=== PATIENT | male | born 1960 | race Caucasian/White ===

== ENCOUNTER → 2020-10-08 11:00 | Outpatient (BNVA) | payer OTHER, SELFPAY | PROVIDERS: Visit Provider Urology | DX: C67.9 Malignant neoplasm of bladder, unspecified (principal) | CPT/HCPCS: 81002 ==

== ENCOUNTER 2020-10-08 11:40 | Outpatient (REF) | payer OTHER, SELFPAY ==
[2020-10-11 11:38] LABS: Urine Cytology See Pathology rpt
== END 2020-10-08 11:41 | disposition home or self-care (01) ==
LOC: HO.LNP 11:40
PROVIDERS: Visit Provider Urology
DX: D49.4 Neoplasm of unspecified behavior of bladder (principal)
CPT/HCPCS: 88112

== ENCOUNTER 2021-01-12 07:45 | Outpatient (REF) | payer OTHER, SELFPAY ==
[2021-01-12 11:27] LABS: MANUAL DIFF FLAG NO
[2021-01-12 11:39] LABS: Estimated Average Glucose 126 mg/dL
[2021-01-12 11:59] LABS: Creatinine Urine 226.65 mg/dL; Microalbum/Creatinine Ratio Ur 7.9 ug/mg cr
[2021-01-12 12:01] LABS: Basophils Percent Auto 0.5 % (0-2); Eosinophils Absolute Auto 0.1 X10*3/uL (0.0-0.4); Eosinophils Percent Auto 1.8 % (0-4); Hematocrit 45.8 % (42-52); Hemoglobin 14.7 g/dl (14.0-18.0); Imm Gran Abs Auto 0.02 X10*3/uL (0.00-0.03); Imm Gran Pct Auto 0.3 % (0.0-0.4); Lymphocytes Absolute Auto 2.2 X10*3/uL (1.2-4.9); Lymphocytes Percent Auto 36.7 % (20-40); Mean Corpuscular HGB Conc 32.1 g/dl (31.0-36.0); Mean Corpuscular Hemoglobin 30.7 pg (27.0-33.0); Mean Corpuscular Volume 95.6 fL (80-98); Mean Platelet Volume 10.9 fL (9.4-12.4); Monocytes Absolute Auto 0.7 X10*3/uL (0.1-1.2); Monocytes Percent Auto 10.8 % (2-11); Neutrophils Percent Auto 49.9 % (45-73); Platelet Count 211 X10*3/uL (160-400); Red Blood Count 4.79 X10*6/uL (4.60-5.80); Red Cell Distribution Width 13.6 % (11.0-16.0); White Blood Count 6.1 X10*3/uL (4.8-10.8)
[2021-01-12 12:15] LABS: Alanine Aminotransferase 20 U/L (0-40); Albumin Level 4.4 g/dL (3.5-5.0); Alkaline Phosphatase 45 U/L (39-117); Anion Gap 14 (12-20); Aspartate Amino Transferase 24 U/L (5-37); Bilirubin Total 0.4 mg/dL (0.0-1.0); Blood Urea Nitrogen 16 mg/dL (9-16); Calcium 8.9 mg/dL (8.4-10.2); Carbon Dioxide 26 mmol/L (22-29); Chloride 106 mmol/L (96-108); Cholesterol 131 mg/dL; Estimated Glomerular Filt Rate > 60; Glucose Fasting 130 mg/dL (60-99); HDL Cholesterol 26 mg/dL; Potassium 4.8 mmol/L (3.3-5.1); Sodium 141 mmol/L (135-145); Total Protein 6.6 g/dL (6.5-8.0); Triglycerides 434 mg/dL
== END 2021-01-12 07:46 | disposition home or self-care (01) ==
LOC: HO.HMGCLDS 07:45
PROVIDERS: PCP Internal Medicine; Visit Provider Internal Medicine
DX: E11.9 Type 2 diabetes mellitus without complications (principal); E78.00 Pure hypercholesterolemia, unspecified; I10 Essential (primary) hypertension; E66.09 Other obesity due to excess calories
CPT/HCPCS: 36415; 80053; 80061; 82043; 83036; 85025

== ENCOUNTER 2021-04-29 07:39 | Outpatient (REF) | payer OTHER, SELFPAY ==
[2021-04-29 11:59] LABS: Estimated Average Glucose 131 mg/dL; Hemoglobin A1c % 6.2 %
[2021-04-29 12:00] LABS: Alanine Aminotransferase 26 U/L (0-40); Albumin Level 4.6 g/dL (3.5-5.0); Alkaline Phosphatase 45 U/L (39-117); Anion Gap 14 (12-20); Aspartate Amino Transferase 27 U/L (5-37); Bilirubin Total 0.5 mg/dL (0.0-1.0); Blood Urea Nitrogen 17 mg/dL (9-16); Calcium 9.1 mg/dL (8.4-10.2); Carbon Dioxide 23 mmol/L (22-29); Chloride 107 mmol/L (96-108); Cholesterol 103 mg/dL; Estimated Glomerular Filt Rate > 60; Glucose Fasting 125 mg/dL (60-99); HDL Cholesterol 24 mg/dL; LDL Cholesterol Calculated 45 mg/dl; Potassium 4.5 mmol/L (3.3-5.1); Sodium 139 mmol/L (135-145); Total Protein 6.7 g/dL (6.5-8.0); Triglycerides 174 mg/dL
== END 2021-04-29 07:40 | disposition home or self-care (01) ==
LOC: HO.HMGCLDS 07:39
PROVIDERS: PCP Internal Medicine; Visit Provider Internal Medicine
DX: E11.9 Type 2 diabetes mellitus without complications (principal); I10 Essential (primary) hypertension; E78.00 Pure hypercholesterolemia, unspecified; E66.09 Other obesity due to excess calories
CPT/HCPCS: 36415; 80053; 80061; 83036

== ENCOUNTER 2021-05-18 09:48 | Outpatient (REF) | payer OTHER, SELFPAY ==
[2021-05-18 17:24] LABS: Urine Cytology See Pathology rpt
== END 2021-05-18 09:49 | disposition home or self-care (01) ==
LOC: HO.LAB 09:48
PROVIDERS: PCP Internal Medicine; Visit Provider Urology
DX: C67.9 Malignant neoplasm of bladder, unspecified (principal)
CPT/HCPCS: 88112

== ENCOUNTER 2021-11-11 09:11 | Outpatient (REF) | payer OTHER, SELFPAY ==
[2021-11-11 11:10] LABS: MANUAL DIFF FLAG NO
[2021-11-11 11:20] LABS: Basophils Percent Auto 0.4 % (0-2); Eosinophils Percent Auto 0.8 % (0-4); Hematocrit 44.3 % (42.0-52.0); Hemoglobin 14.8 g/dl (14.0-18.0); Imm Gran Abs Auto 0.02 X10*3/uL (0.00-0.03); Imm Gran Pct Auto 0.4 % (0.0-0.4); Lymphocytes Absolute Auto 2.1 X10*3/uL (1.2-4.9); Lymphocytes Percent Auto 40.9 % (20-40); Mean Corpuscular HGB Conc 33.4 g/dl (31.0-36.0); Mean Corpuscular Hemoglobin 31.5 pg (27.0-33.0); Mean Corpuscular Volume 94.3 fL (80.0-98.0); Mean Platelet Volume 11.5 fL (9.4-12.4); Monocytes Absolute Auto 0.6 X10*3/uL (0.1-1.2); Monocytes Percent Auto 11.4 % (2-11); Neutrophils Absolute Auto 2.4 x10*3/uL (2.0-8.3); Neutrophils Percent Auto 46.1 % (45-73); Platelet Count 181 X10*3/uL (160-400); Red Cell Distribution Width 13.3 % (11.0-16.0); White Blood Count 5.1 X10*3/uL (4.8-10.8)
[2021-11-11 11:22] LABS: Appearance Urine CLEAR; Color Urine YELLOW; Glucose Urine UA NEG (NEG); Leukocyte Esterase Urine NEG (NEG); Nitrite Urine NEG (NEG); Urine Blood NEG (NEG); Urine Ketones NEG (NEG); Urine Protein NEG (NEG-TRACE)
[2021-11-11 11:33] LABS: Estimated Average Glucose 148 mg/dL; Hemoglobin A1c % 6.8 %
[2021-11-11 11:41] LABS: Alanine Aminotransferase 34 U/L (0-40); Albumin Level 4.5 g/dL (3.5-5.0); Alkaline Phosphatase 42 U/L (39-117); Anion Gap 12 (12-20); Aspartate Amino Transferase 34 U/L (5-37); Bilirubin Total 0.5 mg/dL (0.0-1.0); Blood Urea Nitrogen 11 mg/dL (9-16); Calcium 9.6 mg/dL (8.4-10.2); Carbon Dioxide 25 mmol/L (22-29); Chloride 108 mmol/L (96-108); Cholesterol 114 mg/dL; Estimated Glomerular Filt Rate > 60; Glucose Fasting 136 mg/dL (60-99); HDL Cholesterol 31 mg/dL; LDL Cholesterol Calculated 63 mg/dl; Sodium 141 mmol/L (135-145); Total Protein 6.6 g/dL (6.5-8.0); Triglycerides 103 mg/dL
[2021-11-11 11:59] LABS: Creatinine Urine 36.93 mg/dL; Microalbum/Creatinine Ratio Ur 13.5 ug/mg cr; RBC Urine 0 /HPF (0); WBC Urine 0-2 /HPF (0-4)
[2021-11-11 12:07] LABS: Thyroid Stimulating Hormone 1.23 uIU/mL (0.32-4.0); Vitamin D 25-OH Total 35.6 ng/mL (>30)
== END 2021-11-11 09:12 | disposition home or self-care (01) ==
LOC: HO.HMGCLDS 09:11
PROVIDERS: PCP Internal Medicine; Visit Provider Internal Medicine
DX: E11.9 Type 2 diabetes mellitus without complications (principal); I10 Essential (primary) hypertension; N20.0 Calculus of kidney; E78.00 Pure hypercholesterolemia, unspecified; E55.9 Vitamin D deficiency, unspecified
CPT/HCPCS: 36415; 80053; 80061; 81001; 82043; 82306; 83036; 84443; 85025

== ENCOUNTER 2021-11-15 08:50 | Outpatient (REF) | payer OTHER, SELFPAY ==
[2021-11-15 16:47] LABS: Urine Cytology See Pathology rpt
== END 2021-11-15 08:51 | disposition home or self-care (01) ==
LOC: HO.LAB 08:50
PROVIDERS: PCP Internal Medicine; Visit Provider Urology
DX: C67.9 Malignant neoplasm of bladder, unspecified (principal); D04.9 Carcinoma in situ of skin, unspecified; F17.210 Nicotine dependence, cigarettes, uncomplicated; Z88.0 Allergy status to penicillin; Z88.1 Allergy status to other antibiotic agents; Z91.02 Food additives allergy status; Z77.098 Contact with and (suspected) exposure to other hazardous, chiefly nonmedicinal, chemicals
CPT/HCPCS: 52000; 88112

== ENCOUNTER 2022-06-09 07:22 | Outpatient (REF) | payer OTHER, SELFPAY ==
[2022-06-09 11:39] LABS: MANUAL DIFF FLAG NO
[2022-06-09 11:45] LABS: Basophils Percent Auto 0.6 % (0-2); Eosinophils Percent Auto 0.5 % (0-4); Hematocrit 45.5 % (42.0-52.0); Hemoglobin 15.1 g/dl (14.0-18.0); Imm Gran Abs Auto 0.07 X10*3/uL (0.00-0.03); Imm Gran Pct Auto 1.1 % (0.0-0.4); Lymphocytes Absolute Auto 2.2 X10*3/uL (1.2-4.9); Lymphocytes Percent Auto 33.4 % (20-40); Mean Corpuscular HGB Conc 33.2 g/dl (31.0-36.0); Mean Corpuscular Hemoglobin 31.5 pg (27.0-33.0); Mean Platelet Volume 11.8 fL (9.4-12.4); Monocytes Absolute Auto 0.7 X10*3/uL (0.1-1.2); Monocytes Percent Auto 11.4 % (2-11); Neutrophils Absolute Auto 3.5 x10*3/uL (2.0-8.3); Platelet Count 176 X10*3/uL (160-400); Red Blood Count 4.79 X10*6/uL (4.60-5.80); Red Cell Distribution Width 12.9 % (11.0-16.0); White Blood Count 6.5 X10*3/uL (4.8-10.8)
[2022-06-09 12:47] LABS: Estimated Average Glucose 174 mg/dL; Hemoglobin A1c % 7.7 %
[2022-06-09 13:05] LABS: Alanine Aminotransferase 32 U/L (0-40); Albumin Level 4.7 g/dL (3.5-5.0); Alkaline Phosphatase 43 U/L (39-117); Anion Gap 13 (12-20); Aspartate Amino Transferase 33 U/L (5-37); Bilirubin Total 0.6 mg/dL (0.0-1.0); Blood Urea Nitrogen 14 mg/dL (9-16); Calcium 9.9 mg/dL (8.4-10.2); Carbon Dioxide 27 mmol/L (22-29); Chloride 102 mmol/L (96-108); Cholesterol 109 mg/dL; Estimated Glomerular Filt Rate > 60; Glucose Fasting 175 mg/dL (60-99); HDL Cholesterol 27 mg/dL; LDL Cholesterol Calculated 55 mg/dl; Potassium 4.8 mmol/L (3.3-5.1); Sodium 137 mmol/L (135-145); Thyroid Stimulating Hormone 1.16 uIU/mL (0.32-4.0); Total Protein 6.7 g/dL (6.5-8.0); Triglycerides 137 mg/dL
[2022-06-09 13:35] LABS: Vitamin D 25-OH Total 34.8 ng/mL (>30)
[2022-06-09 14:08] LABS: Creatinine Urine 99.33 mg/dL
[2022-06-09 14:22] LABS: PSA,Total (Free>4and<10) 0.21 ng/mL (0.00-4.00)
== END 2022-06-09 07:23 | disposition home or self-care (01) ==
LOC: HO.HMGCLDS 07:22
PROVIDERS: PCP Internal Medicine; Visit Provider Internal Medicine
DX: Z12.5 Encounter for screening for malignant neoplasm of prostate (principal); E11.9 Type 2 diabetes mellitus without complications; E78.00 Pure hypercholesterolemia, unspecified; E55.9 Vitamin D deficiency, unspecified; F41.9 Anxiety disorder, unspecified; I10 Essential (primary) hypertension
CPT/HCPCS: 36415; 80053; 80061; 82043; 82306; 83036; 84153; 84443; 85025

== ENCOUNTER 2022-06-30 11:00 | Outpatient (REF) | payer OTHER, SELFPAY ==
[2022-06-30 16:38] LABS: Urine Cytology See Pathology rpt
== END 2022-06-30 11:01 | disposition home or self-care (01) ==
LOC: HO.LAB 11:00
PROVIDERS: PCP Internal Medicine; Visit Provider Urology
DX: C67.9 Malignant neoplasm of bladder, unspecified (principal)
CPT/HCPCS: 52000; 88112

== ENCOUNTER 2022-07-15 10:38 | Outpatient (REF) | payer OTHER, SELFPAY ==
[2022-07-15 14:02] LABS: MANUAL DIFF FLAG NO
[2022-07-15 14:05] LABS: Basophils Percent Auto 0.7 % (0-2); Eosinophils Percent Auto 0.5 % (0-4); Hematocrit 45.9 % (42.0-52.0); Imm Gran Abs Auto 0.11 X10*3/uL (0.00-0.03); Imm Gran Pct Auto 1.8 % (0.0-0.4); Lymphocytes Absolute Auto 2.4 X10*3/uL (1.2-4.9); Lymphocytes Percent Auto 38.3 % (20-40); Mean Corpuscular HGB Conc 32.7 g/dl (31.0-36.0); Mean Corpuscular Hemoglobin 31.4 pg (27.0-33.0); Mean Platelet Volume 11.5 fL (9.4-12.4); Monocytes Absolute Auto 0.6 X10*3/uL (0.1-1.2); Monocytes Percent Auto 9.3 % (2-11); Neutrophils Percent Auto 49.4 % (45-73); Platelet Count 182 X10*3/uL (160-400); Red Blood Count 4.78 X10*6/uL (4.60-5.80); Red Cell Distribution Width 12.8 % (11.0-16.0); White Blood Count 6.1 X10*3/uL (4.8-10.8)
[2022-07-15 14:07] LABS: Appearance Urine Turbid; Color Urine Yellow; Glucose Urine UA Negative (Negative); Leukocyte Esterase Urine Negative (Negative); Nitrite Urine Negative (Negative); PH 5.5 (5.0-9.0); Specific Gravity - Urine 1.025 (1.005-1.025); Urine Blood Negative (Negative); Urine Ketones Negative (Negative); Urine Protein Trace mg/dL (Neg-Trace)
[2022-07-15 14:10] LABS: Bacteria Urine None Seen (None Seen); Hyaline Casts Urine 0-2 /LPF (0-2); RBC Urine 0-2 /HPF (0-2); Squamous Epithelial Cell Urine 0-2 /HPF (0-2); WBC Urine 0-5 /HPF (0-5)
[2022-07-15 14:17] LABS: Alanine Aminotransferase 35 U/L (0-40); Albumin Level 4.8 g/dL (3.5-5.0); Alkaline Phosphatase 46 U/L (39-117); Anion Gap 15 (12-20); Aspartate Amino Transferase 35 U/L (5-37); Bilirubin Total 0.7 mg/dL (0.0-1.0); Blood Urea Nitrogen 15 mg/dL (9-16); Calcium 9.7 mg/dL (8.4-10.2); Carbon Dioxide 25 mmol/L (22-29); Chloride 105 mmol/L (96-108); Estimated Glomerular Filt Rate > 60; Glucose Random 156 mg/dL (60-115); Potassium 4.6 mmol/L (3.3-5.1); Sodium 140 mmol/L (135-145); Total Protein 6.8 g/dL (6.5-8.0)
== END 2022-07-15 10:39 | disposition home or self-care (01) ==
LOC: HO.HMGCLDS 10:38
PROVIDERS: Absent Provider Urology; PCP Internal Medicine; Visit Provider Internal Medicine
DX: C67.9 Malignant neoplasm of bladder, unspecified (principal); I10 Essential (primary) hypertension; E11.9 Type 2 diabetes mellitus without complications
CPT/HCPCS: 36415; 80053; 81001; 85025; 87086

== ENCOUNTER → 2022-10-24 11:21 | Outpatient (BNVA) | payer OTHER, SELFPAY | PROVIDERS: PCP Internal Medicine; Visit Provider Surgery | DX: Z13.89 Encounter for screening for other disorder (principal) ==

== ENCOUNTER 2023-05-01 10:57 | Outpatient (REF) | payer OTHER, SELFPAY ==
[2023-05-01 13:29] LABS: Appearance Urine Clear; Color Urine Yellow; Glucose Urine UA 100 mg/dL (Negative); Leukocyte Esterase Urine Negative (Negative); Nitrite Urine Negative (Negative); PH 5.5 (5.0-9.0); Urine Blood Negative (Negative); Urine Ketones Negative (Negative); Urine Protein Negative (Neg-Trace)
[2023-05-01 13:34] LABS: MANUAL DIFF FLAG NO
[2023-05-01 13:38] LABS: Bacteria Urine None Seen (None Seen); Hyaline Casts Urine 0-2 /LPF (0-2); RBC Urine 0-2 /HPF (0-2); Squamous Epithelial Cell Urine 0-2 /HPF (0-2); WBC Urine 0-5 /HPF (0-5)
[2023-05-01 13:55] LABS: Basophils Percent Auto 0.6 % (0-2); Eosinophils Percent Auto 0.4 % (0-4); Hematocrit 44.3 % (42.0-52.0); Hemoglobin 14.7 g/dl (14.0-18.0); Imm Gran Abs Auto 0.08 X10*3/uL (0.00-0.03); Imm Gran Pct Auto 1.5 % (0.0-0.4); Lymphocytes Absolute Auto 1.9 X10*3/uL (1.2-4.9); Lymphocytes Percent Auto 34.9 % (20-40); Mean Corpuscular HGB Conc 33.2 g/dl (31.0-36.0); Mean Corpuscular Volume 93.5 fL (80.0-98.0); Monocytes Absolute Auto 0.5 X10*3/uL (0.1-1.2); Monocytes Percent Auto 8.6 % (2-11); Platelet Count 170 X10*3/uL (160-400); Red Blood Count 4.74 X10*6/uL (4.60-5.80); White Blood Count 5.5 X10*3/uL (4.8-10.8)
[2023-05-01 14:28] LABS: Estimated Average Glucose 163 mg/dL; Hemoglobin A1c % 7.3 % (<6.0)
[2023-05-01 14:32] LABS: Alanine Aminotransferase 35 U/L (0-40); Albumin Level 4.7 g/dL (3.5-5.0); Alkaline Phosphatase 43 U/L (39-117); Anion Gap 15 (12-20); Aspartate Amino Transferase 35 U/L (5-37); Bilirubin Total 0.5 mg/dL (0.0-1.0); Blood Urea Nitrogen 11 mg/dL (9-16); Calcium 9.5 mg/dL (8.4-10.2); Carbon Dioxide 25 mmol/L (22-29); Chloride 104 mmol/L (96-108); Cholesterol 129 mg/dL (<200); Estimated Glomerular Filt Rate > 60; Glucose Fasting 183 mg/dL (60-99); HDL Cholesterol 31 mg/dL (>40); LDL Cholesterol Calculated 71 mg/dL (<100); Potassium 4.2 mmol/L (3.3-5.1); Sodium 140 mmol/L (135-145); Triglycerides 138 mg/dL (<150)
[2023-05-01 14:38] LABS: Thyroid Stimulating Hormone 0.76 uIU/mL (0.32-4.0); Vitamin D 25-OH Total 77.3 ng/mL (>30)
[2023-05-01 23:44] LABS: Creatinine Urine 102.13 mg/dL; Microalbum/Creatinine Ratio Ur 52.8 ug/mg cr (<30)
== END 2023-05-01 10:58 | disposition home or self-care (01) ==
LOC: HO.HMGCLDS 10:57
PROVIDERS: PCP Internal Medicine; Visit Provider Internal Medicine
DX: E11.9 Type 2 diabetes mellitus without complications (principal); E78.00 Pure hypercholesterolemia, unspecified; E55.9 Vitamin D deficiency, unspecified; F41.9 Anxiety disorder, unspecified; I10 Essential (primary) hypertension
CPT/HCPCS: 36415; 80053; 80061; 81001; 82043; 82306; 82570; 83036; 84443; 85025

== ENCOUNTER 2023-06-29 08:58 | Outpatient (AMB) | payer OTHER, SELFPAY ==
--- NOTE | 2023-06-29 09:02 | MHC.OFFVIS ---
Intake Intake Visit Reasons: Cysto(Bladder Ca) Intake Note: Patient is Present for Cystoscopy Urology Med: None Antibiotic Allergy: Penicillin, Amoxicillin Blood Thinner: None URO- G Disposable Cystoscope lot: [id number] exp:11/19/2024 Allergies amoxicillin [AMOXICILLIN] Allergy (Unknown, Verified 06/29/23 09:04) HIVES monosodium glutamate [MSG] Allergy (Unknown, Verified 06/29/23 09:04) NAUSEA Penicillins [PENICILLINS] Allergy (Unknown, Verified 06/29/23 09:04) HIVES HPI HPI Comments History of Present Illness Details Kelton is a pleasant male. He is a patient of Dr. Coughlin. He is seen for the following urologic conditions - bladder cancer low-grade superficial Cystoscopy normal Twelve month follow-up Bladder cancer low-grade superficial November 2018 Initial diagnosis November 2018 Risk factors - organic chemical exposure - acetone and toluene many years ago, smoking Procedure - TURBT - November 2018 low-grade superficial Cytology - November 2018. 05/30 atypical Cystoscopy - 10/27 NAD, 05/29 NAD, 05/30 NAD Prior PSA 05/29 0.2 Therapeutic plan - move to follow-up 12 months [facility] Medical History Bladder tumor Hematuria Nicotine dependence Chelo disease Anal warts HTN (hypertension) Malignant neoplasm of urinary bladder Surgical History History of vasectomy History of tonsillectomy Family History Mother Thyroid disease Father Diabetes Heart failure Social History Alcohol intake: current Alcohol intake frequency: holidays/special occasions only Patient Tobacco Use Status: Current everyday Tobacco user Cigarettes Per Day: 6 Review of Systems Const Denies chills and Denies fever(s) Card Reports no additional complaints and Denies syncope Resp Denies cough GI Denies abdominal pain and Denies heartburn Reports as per HPI and Denies change in libido Neuro Denies syncope Psych Denies change in libido Endo Denies change in libido Physical Exam Const General: cooperative, healthy appearing, comfortable and no acute distress Orientation/consciousness: patient oriented x3 HEENT Face and sinus: Yes normal facial exam Mouth: moist mucous membranes Neck Neck: Yes normal visual inspection, Yes full ROM and Yes trachea midline Chest Chest palpation & inspection: normal inspection of the chest Resp Effort & Inspection: normal respiratory effort, able to speak in complete sentences and no respiratory distress GI Inspection: Yes normal to inspection Back/Spine/Pelvis Cervical Spine: normal cervical lordosis Thoracic/Lumbar Spine: thoracic and lumbar spine normal to inspection Skin General skin exam: no rashes or lesions noted Neuro General: patient oriented x3, gait normal, tone normal and moves all extremities Extrem General: Yes normal to inspection and Yes capillary refill normal Office Procedures Cystoscopy Consent Discussed risk and benefit or proposed procedure with the patient. Information consent for procedure given to the patient. Discussed technical aspects, risks, benefits and alternatives in full. Addressed all of the patient's questions and concerns regarding the procedure. The patient demonstrated knowledge and understanding. They wish to proceed with this procedure. Preparation The patient was prepped in the usual manner. A margin trimmer was present and in the room. Genitalia was prepped with betadine solution in a sterile manner. Lidocaine Jelly 2% was placed into the urethra and 16Fr flexible Olympus cystoscope was inserted into the meatus after adequate lubrication. Procedure Meatus circumcised Urethra anterior posterior urethra Prostatic Urethra unremarkable Bladder examination with retroflexion of cystoscope Bladder Orifices normal shape and position Bladder Capacity medium Trabeculations - Cellule Formation - Diverticulum Formation - Mucosal Erythema - Bladder Tumor - [id number] DISPOSABLE SCOPE URO-G FLEXIBLE SCOPE Procedure code (CPT) selection complete Office Meds lidocaine HCl 2 % mucosal jelly in applicator Performing Provider: Nathan Borja MD Performing Location: [facility] [place] [facility] Administered by: Zoraida Landaverde RN on 06/29/23 09:15 Dose Route Admin Location Dispensed Lot Number Expiration Date [facility] Process Control Board Operator 10 mL intra-urethral 10 mL nitrofurantoin monohydrate/macrocrystals 100 mg capsule Performing Provider: Nathan Borja MD Performing Location: [facility] [place] [facility] Administered by: Zoraida Landaverde RN on 06/29/23 09:15 Dose Route Admin Location Dispensed Lot Number Expiration Date [facility] Process Control Board Operator 100 mg PO 1 cap naproxen 500 mg tablet Performing Provider: Nathan Borja MD Performing Location: [facility] [place] [facility] Administered by: Zoraida Landaverde RN on 06/29/23 09:15 Dose Route Admin Location Dispensed Lot Number Expiration Date [facility] Process Control Board Operator 500 mg PO 1 tab Results AMB Urinalysis, Automated UA Leukoctes 0 Javier/uL Last Edit by Jenny Obando, A on 06/29/23 09:14 UA Nitrite Negative Last Edit by Jenny Obando, RMA on 06/29/23 09:14 UA Urobilinogen 0.2 mg/dL Last Edit by Jenny Obando, RMA on 06/29/23 09:14 UA Protein 15 mg/dL Last Edit by Jenny Obando, RMA on 06/29/23 09:14 UA pH 5.0 Last Edit by Jenny Obando, RMA on 06/29/23 09:14 UA Blood 0 Rex/uL Last Edit by Jenny Obando, A on 06/29/23 09:14 UA Specific [place] 1.020 Last Edit by Jenny Obando A on 06/29/23 09:14 UA Ketone Negative Last Edit by Jenny Obando, RMA on 06/29/23 09:14 UA Bilirubin 0 mg/dL Last Edit by Jenny Obando A on 06/29/23 09:14 UA Glucose 500 mg/dL Last Edit by Jenny Obando, A on 06/29/23 09:14 Results Reviewed Results Reviewed: Laboratory Last Values Urine pH (Auto) 5.0 06/29/23 09:13 Specific [place] (Auto) 1.020 06/29/23 09:13 Urine Protein (Auto) 15 mg/dL 06/29/23 09:13 Glucose (UA)(Auto) 500 mg/dL 06/29/23 09:13 Urine Ketones (Auto) Negative 06/29/23 09:13 Urine Blood (Auto) 0 Rex/uL 06/29/23 09:13 Urine Nitrite (Auto) Negative 06/29/23 09:13 Urine Bilirubin (Auto) 0 mg/dL 06/29/23 09:13 Urine Urobilinogen (Auto) 0.2 mg/dL 06/29/23 09:13 Leukocyte Esterase (Auto) 0 Javier/uL 06/29/23 09:13 Assessment & Plan Assessment & Plan (1) Malignant neoplasm of urinary bladder: Comment: Low-grade Superficial bladder cancer initial diagnosis 2019 Code(s): C67.9 - Malignant neoplasm of bladder, unspecified Plan Twelve month follow-up Orders: Orders FISH Bladder Cancer 06/29/23 C67.9 - Malignant neoplasm of bladder, unspecified AMB Cystoscopy 06/29/23 C67.9 - Malignant neoplasm of bladder, unspecified AMB Urinalysis Automated 06/29/23 Z13.9 - Encounter for screening, unspecified, C67.9 - Malignant neoplasm of bladder, unspecified Patient Instructions: Imaging studies, laboratory and physical exam results were discussed and reviewed in detail. No major barriers to patient understanding were identified. An opportunity to ask questions regarding the treatment plan was provided. All questions were answered. The patient expressed understanding and agreement with the above treatment plan. The patient is aware they should contact our office by phone for worsening of their current condition or the appearance of new urologic symptoms. Compliance is encouraged with any medications and followup testing that is ordered. It is a privilege to participate in the urologic care of your patient. If you have any questions or concerns regarding treatment for the above conditions, or other urologic issues, please do not hesitate to contact me. The office telephone contact is [phone]. This note is constructed using voice recognition software. While every effort has been made to ensure accuracy credit reporter errors may have been included. Yours sincerely, Dr Nathan Borja MD, [facility] - Urology Providers of Expert, Compassionate Care for the Genitourinary System Coding Level of Care Code Est Pt Level 4 (28052) Diagnoses Malignant neoplasm of urinary bladder C67.9 CPT Codes Cystoscopy - CPT: 03824-[id number] ([id number])
== END 2023-06-29 09:36 | disposition home or self-care (01) ==
PROVIDERS: Visit Provider Urology
DX: C67.9 Malignant neoplasm of bladder, unspecified (principal); Z13.9 Encounter for screening, unspecified
CPT/HCPCS: 52000; 99214

== ENCOUNTER 2023-06-29 08:58 | Outpatient (REF) | payer OTHER, SELFPAY | END 2023-06-29 08:59 | disposition home or self-care (01) | LOC: HO.LNP 08:58 | PROVIDERS: Visit Provider Urology | DX: C67.9 Malignant neoplasm of bladder, unspecified (principal) | CPT/HCPCS: 52000; 81003; 88121 ==

== ENCOUNTER 2024-01-28 10:51 | Outpatient (REF) | payer OTHER, SELFPAY ==
[2024-01-28 13:17] LABS: Appearance Urine Clear; Color Urine Yellow; Glucose Urine UA Negative (Negative); Leukocyte Esterase Urine Negative (Negative); Nitrite Urine Negative (Negative); PH 5.5 (5.0-9.0); Urine Blood Negative (Negative); Urine Ketones Negative (Negative); Urine Protein Negative (Neg-Trace)
[2024-01-28 13:23] LABS: Bacteria Urine None Seen (None Seen); Hyaline Casts Urine 0-2 /LPF (0-2); RBC Urine 0-2 /HPF (0-2); Squamous Epithelial Cell Urine 0-2 /HPF (0-2); WBC Urine 0-5 /HPF (0-5)
[2024-01-28 13:38] LABS: Estimated Average Glucose 171 mg/dL; Hemoglobin A1C 239.7905 umol/L; Hemoglobin A1c % 7.6 % (<6.0)
[2024-01-28 13:43] LABS: Creatinine Urine 135.16 mg/dL; Microalbum/Creatinine Ratio Ur 11.8 ug/mg cr (<30)
[2024-01-28 13:52] LABS: Alanine Aminotransferase 27 U/L (0-40); Albumin Level 4.7 g/dL (3.5-5.0); Alkaline Phosphatase 41 U/L (39-117); Anion Gap 13 (12-20); Aspartate Amino Transferase 28 U/L (5-37); Bilirubin Total 0.7 mg/dL (0.0-1.0); Blood Urea Nitrogen 10 mg/dL (9-16); Calcium 9.3 mg/dL (8.4-10.2); Carbon Dioxide 22 mmol/L (22-29); Chloride 108 mmol/L (96-108); Cholesterol 101 mg/dL (<200); Estimated Glomerular Filt Rate > 60; Glucose Fasting 143 mg/dL (60-99); HDL Cholesterol 31 mg/dL (>40); LDL Cholesterol Calculated 43 mg/dL (<100); Potassium 4.4 mmol/L (3.3-5.1); Sodium 139 mmol/L (135-145); Total Protein 6.9 g/dL (6.5-8.0); Triglycerides 136 mg/dL (<150)
== END 2024-01-28 10:52 | disposition home or self-care (01) ==
LOC: HO.HMGCLDS 10:51
PROVIDERS: PCP Internal Medicine; Visit Provider Internal Medicine
DX: E11.9 Type 2 diabetes mellitus without complications (principal); I10 Essential (primary) hypertension; E78.00 Pure hypercholesterolemia, unspecified
CPT/HCPCS: 36415; 80053; 80061; 81001; 82043; 82570; 83036

== ENCOUNTER 2024-02-18 09:27 | Outpatient (AMB) | payer OTHER, SELFPAY ==
--- NOTE | 2024-02-18 09:28 | MHC.OFFVIS ---
Vital Signs 02/18/24 09:35 Height 5 ft 8 in Weight 212 lb BMI 32.2 BP 134/67 Blood Pressure Location Rt brachial Position Sitting Pulse 71 Intake Visit Reasons: Umbilical hernia Intake Note: This patient presents for umbilical hernia assessment. Pt c/o; re reports bulge, reports occasional pain/discomfort, reports no changes to bowel habits. Loss Control Engineer Required: No Accompanied by: Self / Same As Patient Allergies amoxicillin [AMOXICILLIN] Allergy (Unknown, Verified 02/18/24 09:34) HIVES monosodium glutamate [MSG] Allergy (Unknown, Verified 02/18/24 09:34) NAUSEA Penicillins [PENICILLINS] Allergy (Unknown, Verified 02/18/24 09:34) HIVES Medication List - Last Reconciled 02/18/24 by Ti Kaufman MD atorvastatin 80 mg PO DAILY clotrimazole-betamethasone 1-0.05 % 1 appl topical BID lisinopril 0 mg PO metformin 1,000 mg PO BID HPI HPI Umbilical hernia: Details: 64-year-old male referred for an umbilical hernia. He says he has noticed this lump on his umbilicus for about 10 years now. He says that this did not really bother him before but over the years this has been increasing in size. This has been causing pain and discomfort the last year. He had seen Dr. Gutierrez last year but this surgery was put off because of his diabetes. The patient says his blood sugars are well controlled. He also admits to smoking every day. He is also morbidly obese. [facility] Medical History Bladder tumor Hematuria Nicotine dependence Chelo disease Anal warts HTN (hypertension) Malignant neoplasm of urinary bladder Surgical History History of vasectomy History of tonsillectomy Family History Mother Thyroid disease Father Diabetes Heart failure Social History Alcohol intake: current Alcohol intake frequency: holidays/special occasions only Patient Tobacco Use Status: Current everyday Tobacco user Cigarettes Per Day: 6 Review of Systems Const Denies chills and Denies fever(s) Card Denies chest pain, Denies dyspnea and Denies dyspnea on exertion Resp Denies cough, Denies dyspnea and Denies dyspnea on exertion GI Denies hematochezia and Denies change in bowel habits Denies hematuria and Denies difficulty urinating Musc Denies back pain and Denies limited range of motion Neuro Denies focal weakness and Denies convulsions Psych Denies depression and Denies mood swings Physical Exam Vital Signs: Last Vital Signs Pulse 71 02/18/24 09:35 BP 134/67 02/18/24 09:35 Const Other: Obese General: comfortable and no acute distress Orientation/consciousness: patient oriented x3 Neck Neck: Yes no lymphadenopathy Resp Auscultation: clear to auscultation bilaterally Cardio Rhythm: regular rhythm GI Other: Abdomen is rounded and protuberant, umbilical hernia noted, non reducible but not tender at this time, about 3 cm in diameter Palpation (GI): Soft to palpation, nontender and no guarding Neuro General: patient oriented x3 Assessment & Plan Assessment & Plan (1) Umbilical hernia: Code(s): K42.9 - Umbilical hernia without obstruction or gangrene Category: Medical Plan He has an umbilical hernia as described above with worsening discomfort and pain and size. This hernia is nonreducible likely fat containing and measures about 3 cm in diameter. I explained the technique of repair of the umbilical hernia with possible mesh placement. I reviewed the risks including but not limited bleeding, infections, poor healing, injury, recurrence, as well as the benefits and alternatives. I explained to him what to expect postoperatively. He understands and wants to proceed. He understands that his perioperative risks are a little higher than average in view of his morbid obesity, diabetes and active smoking. I had advised him on the benefits please health of weight loss, blood sugar control, and smoking cessation. Coding Level of Care Code New Pt Level 3 (85854) Diagnoses Umbilical hernia K42.9
[2024-02-18 09:35] VITALS: BP 134/67; PULSE 71; BMI 32.2
== END 2024-02-18 09:45 | disposition home or self-care (01) ==
PROVIDERS: PCP Internal Medicine; Referring Provider Internal Medicine; Visit Provider Surgery
DX: K42.9 Umbilical hernia without obstruction or gangrene (principal)
CPT/HCPCS: 99204

== ENCOUNTER → 2024-02-18 09:27 | Outpatient (BNVA) | payer OTHER, SELFPAY | PROVIDERS: PCP Internal Medicine; Referring Provider Internal Medicine; Visit Provider Surgery ==

== ENCOUNTER 2024-02-27 13:45 | Outpatient (AMB) | payer OTHER, SELFPAY ==
[2024-02-27 14:11] VITALS: BP 140/76; PULSE 63; BMI 32.8
--- NOTE | 2024-02-27 14:11 | A.OFFVIS_ITS ---
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 for bayron inguin hernia Elevated Guard Required: No Accompanied by: Self / Same As Patient Allergies amoxicillin [AMOXICILLIN] Allergy (Unknown, Verified 02/18/24 09:34) HIVES monosodium glutamate [MSG] Allergy (Unknown, Verified 02/18/24 09:34) NAUSEA Penicillins [PENICILLINS] Allergy (Unknown, Verified 02/18/24 09:34) HIVES Medication List - Last Reconciled 02/27/24 by Solo Arias MD atorvastatin 80 mg PO DAILY cholecalciferol (vitamin D3) 25 mcg PO DAILY lisinopril 10 mg PO metformin 1,000 mg PO BID multivitamin 1 tab PO DAILY HPI Comments Details: This is a cardiology consultation regarding preoperative stratification for hernia surgery. He needs umbilical hernia repair. He does have risk factors including obesity, smoking, diabetes, hypertension and hence he has been referred for cardiac evaluation. Patient himself does not have any clear-cut anginal-type symptoms but he gets some tingling type sensations in his upper extremities. He believes it might be something like carpal tunnel. Otherwise, no known cardiac history like coronary disease or myocardial infarction. [facility] Medical History Bladder tumor Hematuria Nicotine dependence Chleo disease Anal warts HTN (hypertension) Malignant neoplasm of urinary bladder Surgical History History of vasectomy History of tonsillectomy Family History Mother Thyroid disease Father Diabetes Heart failure Social History Alcohol intake: current Alcohol intake frequency: holidays/special occasions only Patient Tobacco Use Status: Current everyday Tobacco user Cigarettes Per Day: 6 Review of Systems Const Denies chills, Denies daytime sleepiness, Denies fatigue, Denies fever(s), Denies poor appetite, Denies snoring, Denies stops breathing during sleep, Denies weakness, Denies weight gain and Denies weight loss Eyes Denies loss of vision ENT Denies dizziness and Denies hearing loss Card Denies chest pain, Denies irregular heart rhythm, Denies claudication, Denies leg edema, Denies lightheadedness, Denies palpitations, Denies dyspnea on exertion and Reports orthopnea Resp Denies cough, Denies excessive phlegm production, Denies dyspnea on exertion, Denies snoring and Denies wheezing GI Denies abdominal pain, Denies hematochezia, Denies change in bowel habits, Denies nausea and Denies vomiting Denies dysuria and Denies urinary frequency Musc Denies arthralgias, Denies muscle weakness, Denies numbness and Denies other Skin/Breast Denies nail changes and Denies rash Neuro Denies Abnormal speech present, Denies dizziness, Denies loss of vision, Denies memory loss, Denies numbness and Denies weakness Psych Denies depression and Denies memory loss Endo Denies fatigue and Denies palpitations Haider/Lymph Denies easy bruising Aller/Immun Denies wheezing Physical Exam Vital Signs: Last Vital Signs Pulse 63 02/27/24 14:11 BP 140/76 H 02/27/24 14:11 BMI result Body Mass Index 32.8 Const General: comfortable and no acute distress Orientation/consciousness: patient oriented x3 HEENT Other: Unremarkable Head: Yes normal to inspection Neck Neck: Yes normal visual inspection Chest Chest palpation & inspection: normal inspection of the chest Resp Auscultation: clear to auscultation bilaterally Cardio Palpation: normal PMI Heart sounds: S1 normal heart sound present, S2 normal heart sound present, no gallops, no murmurs and no rubs GI Palpation (GI): Soft to palpation Back/Spine/Pelvis Other: unremarkable Skin General skin exam: no rashes or lesions noted Neuro General: patient oriented x3 Speech: No Abnormal speech present Extrem General: Yes normal to inspection Psych Mental Status: mental status grossly normal Office Procedures EKG Details: EKG with underlying sinus rhythm at 63/Min; can not exclude old inferior infarct but could be from body habitus; [place]. [id number], Complete Assessment & Plan Assessment & Plan (1) Preoperative cardiovascular examination: Code(s): Z01.810 - Encounter for preprocedural cardiovascular examination Category: Medical (2) HTN (hypertension): Code(s): I10 - Essential (primary) hypertension Category: Medical (3) DMII (diabetes mellitus, type 2): Code(s): E11.9 - Type 2 diabetes mellitus without complications Category: Medical (4) Nicotine dependence: Code(s): F17.200 - Nicotine dependence, unspecified, uncomplicated Category: Medical (5) Morbid (severe) obesity due to excess calories: Code(s): E66.01 - Morbid (severe) obesity due to excess calories Category: Medical Plan 64-year-old, multiple risk factors, requiring umbilical hernia surgery. Plan to get an echocardiogram/stress test. Addendum to be made after review of the above. Orders: Orders CA echo transthoracic complete Today Z01.810 - Encounter for preprocedural cardiovascular examination CA echo stress exercise Today R07.2 - Precordial pain, Z01.810 - Encounter for preprocedural cardiovascular examination Coding Level of Care Code New Pt Level 4 (00390) Diagnoses Preoperative cardiovascular examination Z01.810 HTN (hypertension) I10 DMII (diabetes mellitus, type 2) E11.9 Nicotine dependence F17.200 Morbid (severe) obesity due to excess calories E66.01 CPT Codes EKG - CPT: 04725-[id number], Complete ([id number])
== END 2024-02-27 15:08 | disposition home or self-care (01) ==
PROVIDERS: PCP Internal Medicine; Visit Provider Internal Medicine
DX: Z01.810 Encounter for preprocedural cardiovascular examination (principal); I10 Essential (primary) hypertension; E11.9 Type 2 diabetes mellitus without complications; F17.200 Nicotine dependence, unspecified, uncomplicated; E66.01 Morbid (severe) obesity due to excess calories
CPT/HCPCS: 93010; 99204

== ENCOUNTER → 2024-02-27 13:45 | Outpatient (BNVA) | payer OTHER, SELFPAY | PROVIDERS: PCP Internal Medicine; Visit Provider Internal Medicine | DX: Z01.810 Encounter for preprocedural cardiovascular examination (principal); I10 Essential (primary) hypertension; E11.9 Type 2 diabetes mellitus without complications; E66.01 Morbid (severe) obesity due to excess calories; Z68.32 Body mass index [BMI] 32.0-32.9, adult; F17.210 Nicotine dependence, cigarettes, uncomplicated | CPT/HCPCS: 93005 ==

== ENCOUNTER → 2024-02-29 07:41 | Outpatient (REF) | payer OTHER, SELFPAY ==
--- NOTE | 2024-02-29 07:45 | CA_ITS ---
Transthoracic Echocardiogram Patient (Last, First, Middle): Tawanda Junior C Gender: Male Date of : 1960 Age: 64 Procedure Date: 02/29/2024 Procedure Type: Transthoracic Echocardiogram Location: OP Height: 172.72 cm Weight: 97.98 kg BSA: 2.11 m2 Heart Rate: 63 bpm BP: 138 / 72 mmHg Boom Stick Man: SB Referring MD: Solo Arias MD Symptoms: Z01.810 - Encounter for preprocedural cardiovascular examination Study Quality: Adequate ECG Rhythm: Sinus Conclusions: - Normal left ventricular size, thickness, systolic function, and wall motion. The visually estimated ejection fraction is between 55-60%. - E/E prime ratio is between 8 and 15 consistent with indeterminate filling pressures. - Normal right ventricular cavity size and systolic function. - There is mild dilatation of the sinuses of Valsalva measuring 3.90 cm and mild dilatation of the ascending aorta measuring 3.50 cm. Findings Left Ventricle Normal left ventricular size, thickness, systolic function, and wall motion. The visually estimated ejection fraction is between 55-60%. There is no evidence of regional wall motion abnormalities. Abnormal diastolic function is noted. Spectral Doppler is indicative of a pseudonormal filling pattern. E/E prime ratio is between 8 and 15 consistent with indeterminate filling pressures. Right Ventricle Normal right ventricular cavity size and systolic function. Atria The left atrium is normal in size. The right atrium is mildly dilated. Aortic Valve Normal aortic valve structure and function. There is no aortic valve stenosis. There is no aortic valve regurgitation. Mitral Valve The mitral valve appears normal. There is no mitral valve regurgitation. There is no mitral valve stenosis. Pulmonic Valve The pulmonic valve is likely normal. Tricuspid Valve Normal tricuspid valve structure. There is no tricuspid valve regurgitation. Normal right atrial pressure. There is no evidence of pulmonary hypertension. Great Vessels There is mild dilatation of the sinuses of Valsalva measuring 3.90 cm and mild dilatation of the ascending aorta measuring 3.50 cm. Venous The inferior vena cava is normal in size and collapses greater than 50% with inspiration. Pericardium/Pleural There is no evidence of pericardial effusion. Prior Study Comparison No prior study available for comparison. Measurements 2D Linear Measurements IVSd: 1.20 0.6-0.9/0.6-1.0 cm LVIDd: 5.18 3.9-5.3/4.2-5.9 cm LVIDd Index: 2.45 2.4-3.2/2.2-3.1 cm/m2 LVIDs: 4.12 2.0-3.6 cm LVPWd: 0.87 0.7-1.1 cm LA Diam: 3.40 2.7-3.8/3.0-4.0 cm LAIDs Index: 1.61 1.5-2.3 cm/m2 LV Mass: 252.26 67-162/88-224 g LV Mass Index: 119.56 43-95/49-115 g/m2 LVOT Diam: 2.40 3.0+(-)1.3 cm 2D Systolic Function EF 4C: 45.40 >55% EF 2C: 54.00 >55% EF BiP: 49.00 >55% Mitral Valve MV Pk E: 0.73 MV PK A: 0.49 MV Decel Time: 236.00 E/A: 1.50 E'Lateral: 7.62 E'Medial: 5.77 E/E' Med: 12.60 E/E' Lat: 9.60 PHT: 69.00 MVA PHT: 3.19 Decel [place]: 3.08 Aortic Valve AoV Pk Ian: 1.06 AoV Pk Grad: 4.00 [place]: 3.90 LVOT LVOT Pk Ian: 0.78 LVOT Mn Ian: 0.61 LVOT VTI: 0.18 LVOT Pk Grad: 2.00 LVOT Mn Grad: 2.00 LVOT Diam: 2.40 LVOT Area: 4.52 Diastolic Function MV Pk E: 0.73 MV Pk A: 0.49 E/A: 1.50 E'Medial: 5.77 E/E' Med: 12.60 E' Laterial: 7.62 E/E' Lat: 9.60 Right Ventricle TAPSE (mm): 17.50 TVS' Ian: 11.50 Tricuspid Valve TR Pk Ian: 2.03 TR Pk Grad: 16.00 RA Press: 8.00 RVSP: 24.00 Great Vessels Aorta Sinus of Valsalva: 3.90 2.0-3.5 cm Ao Asc: 3.50 2.1-3.4 cm Pulmonary Veins Pulm Vein S/D 1.10 Pulmonary Valve PV Pk Ian: 0.81 Peak PV Grad: 3.00 Updated in Other Vendor System with Status of Final Bradley Glynn MD electronically signed on 03/01/2024 11:06:28 PM with status of Final
== END ==
LOC: HO.CARD 07:41
PROVIDERS: Visit Provider Internal Medicine
DX: Z01.810 Encounter for preprocedural cardiovascular examination (principal)
CPT/HCPCS: 93306

== ENCOUNTER → 2024-02-29 07:45 | Outpatient (BNV) | payer OTHER, SELFPAY | PROVIDERS: Visit Provider Internal Medicine Cardiovascular Disease | DX: I71.010 Dissection of ascending aorta (principal) | CPT/HCPCS: 93306 ==

== ENCOUNTER → 2024-03-03 10:50 | Outpatient (REF) | payer OTHER, SELFPAY ==
--- NOTE | 2024-03-03 10:53 | CA_ITS ---
Acquisition Time: 2024-03-03 11:01:04 Total Exercise Time: 00:05:59 Test Indications: Screening for CAD Medications: ATORVASTATIN METFORMIN LISINOPRIL Protocol: DAVE Max HR: 155 BPM 100% of Pred: 155 BPM Max BP: 200/080 mmHG Max Work Load: 7.0 METS Exercise stress test exercise 5 min 59 sec of Dave protocol achieving 100%, with mild to moderate SOB, without chest discomfort, with isolated PVCs and vencitular cupelts, with HTN response to exercise - max BP 200/80, without EKG changes. Echo images obtained by tech at rest and immediately post peak exercise, Definity contrast used. Breathing returned to baseline with rest. Test reviewed with Dr. Kramer. Referred By: Solo Arias Overread By: Jaqueline Hart
== END ==
LOC: HO.CARD 10:50
PROVIDERS: PCP Internal Medicine; Visit Provider Internal Medicine
DX: Z01.810 Encounter for preprocedural cardiovascular examination (principal); R07.2 Precordial pain
CPT/HCPCS: 93350; Q9957

== ENCOUNTER → 2024-03-03 10:53 | Outpatient (BNV) | payer OTHER, SELFPAY | PROVIDERS: PCP Internal Medicine; Visit Provider Nurse Practitioner | DX: I51.89 Other ill-defined heart diseases (principal); R06.02 Shortness of breath; I49.3 Ventricular premature depolarization | CPT/HCPCS: 93016; 93018; 93350; 93352 ==

== ENCOUNTER 2024-03-11 06:04 | Day surgery (SDC) | payer OTHER, SELFPAY ==
[2024-03-06 12:14] VITALS: BMI 32.8
--- NOTE | 2024-03-06 14:09 | HO.ANESPROP2 ---
HPI - Anesthesia Eval Consult details Narrative: 64yo M for Hernia Umbilical Reducible with possible mesh Cardiac optimized [facility] Active Problems Active Problems: All Active Problems Preoperative cardiovascular examination (Acute) BMI 30.0-30.9,adult (Acute) Morbid (severe) obesity due to excess calories (Acute) Umbilical hernia (Acute) DMII (diabetes mellitus, type 2) (Acute) HTN (hypertension) (Acute) Nicotine dependence (Acute) Malignant neoplasm of urinary bladder (Acute) Past Medical History Medical History (Updated 03/13/24 @ 10:49 by Rhina Thomason PA-C) Malignant neoplasm of urinary bladder (~2019) Hematuria HTN (hypertension) DMII (diabetes mellitus, type 2) Chelo disease Nicotine dependence, cigarettes, uncomplicated History of condyloma acuminatum Family History Family History Mother Thyroid disease Father Diabetes Heart failure Surgical History Surgical History (Updated 03/13/24 @ 10:49 by Rhina Thomason PA-C) History of transurethral resection of bladder tumor (TURBT) History of vasectomy History of tonsillectomy Social History Social History Alcohol intake: current Alcohol intake frequency: holidays/special occasions only Comment: medicated Patient Tobacco Use Status: Current everyday Tobacco user Tobacco use type: Cigarette Cigarettes Per Day: 10 Meds Allergies Allergy/AdvReac Type Severity Reaction Status Date / Time amoxicillin [AMOXICILLIN] Allergy Unknown HIVES Verified 02/18/24 09:34 monosodium glutamate [MSG] Allergy Unknown NAUSEA Verified 02/18/24 09:34 Penicillins [PENICILLINS] Allergy Unknown HIVES Verified 02/18/24 09:34 Home Medications ?Medication ?Instructions ?Recorded ?Confirmed ?Last Taken ?Type atorvastatin 80 mg tablet 80 mg PO DAILY 05/18/21 03/06/24 Unknown History metformin 1,000 mg tablet 1,000 mg PO BID 11/15/21 03/06/24 Unknown History cholecalciferol (vitamin D3) 25 25 mcg PO DAILY 02/27/24 03/06/24 Unknown History mcg (1,000 unit) capsule lisinopril 5 mg tablet 10 mg PO DAILY 02/27/24 03/06/24 Unknown History multivitamin 1 tab PO DAILY 02/27/24 03/06/24 Unknown History Exam Height,Weight and Vital Signs: Height 5 ft 8 in Weight 97.976 kg Pertinent Lab Results Pertinent Lab Results: Laboratory Tests 05/01/23 01/28/24 11:04 11:36 WBC 5.5 Hgb 14.7 Hct 44.3 Plt Count 170 Sodium 139 Potassium 4.4 Chloride 108 Carbon Dioxide 22 BUN 10 Creatinine 0.86 Narrative Narrative: Per cardiac clearance note: Echocardiogram with LVEF of 55-60%; no wall motion abnormalities. No significant valvular findings. In the stress test, he was able to exercise for 7 minutes with shortness of breath and hypertensive blood pressure response. No ischemia on EKG. In the echocardiogram portion, posterior/inferolateral wall thought to be not well evaluated but otherwise unremarkable. Images were reviewed and based on available quality, seems unremarkable. No evidence of exercise induced diastolic dysfunction or pulmonary hypertension. EKG sinus rhythm at 63/Min; can not exclude old inferior infarct but could be from body habitus; normal ID and corrected QT. Assessment and Plan Assessment Anesthesia Assessment: Chart Reviewed
[2024-03-11] VITALS (8 sets, daily range): BP systolic 126–160; BP diastolic 80–93; PULSE 72–84; RESP 16–20; TEMP 36.1–36.2; O2SAT 94–99; BMI 32.9
--- NOTE | 2024-03-11 07:15 | P.CONAN_ITS ---
[facility] Active Problems Active Problems: All Active Problems Preoperative cardiovascular examination (Acute) BMI 30.0-30.9,adult (Acute) Morbid (severe) obesity due to excess calories (Acute) Umbilical hernia (Acute) DMII (diabetes mellitus, type 2) (Acute) HTN (hypertension) (Acute) Nicotine dependence (Acute) Malignant neoplasm of urinary bladder (Acute) Past Medical History Medical History Bladder tumor Hematuria Nicotine dependence Chelo disease Anal warts HTN (hypertension) Malignant neoplasm of urinary bladder Family History Family History Mother Thyroid disease Father Diabetes Heart failure Surgical History Surgical History History of transurethral resection of bladder tumor (TURBT) History of vasectomy History of tonsillectomy History of Problems with Anesthesia: No Social History Social History Alcohol intake: current Alcohol intake frequency: holidays/special occasions only Patient Tobacco Use Status: Current everyday Tobacco user Tobacco use type: Cigarette Cigarettes Per Day: 10 Use of substances other than those prescribed or required for medical reasons: No Are you DNR?: No Advance Directives: No Advance Directives Information Provided: Yes Recently lost weight without trying: No Meds Allergies Allergy/AdvReac Type Severity Reaction Status Date / Time amoxicillin [AMOXICILLIN] Allergy Unknown HIVES Verified 02/18/24 09:34 monosodium glutamate [MSG] Allergy Unknown NAUSEA Verified 02/18/24 09:34 Penicillins [PENICILLINS] Allergy Unknown HIVES Verified 02/18/24 09:34 Active Medications: Current Medications Albuterol Sulfate (Albuterol Sulfate (0.083%) 2.5 Mg/3 Ml Vial.Neb) 2.5 mg INHALE ONCE PRN PRN Reason: Shortness of Breath/Wheezing Lactated Ringer's (Lr) 1,000 mls @ 100 mls/hr IVCONT .Q10H DON Home Medications ?Medication ?Instructions ?Recorded ?Confirmed ?Last Taken ?Type atorvastatin 80 mg tablet 80 mg PO DAILY 05/18/21 03/06/24 Unknown History metformin 1,000 mg tablet 1,000 mg PO BID 11/15/21 03/06/24 Unknown History cholecalciferol (vitamin D3) 25 25 mcg PO DAILY 02/27/24 03/06/24 Unknown H istory mcg (1,000 unit) capsule lisinopril 5 mg tablet 10 mg PO DAILY 02/27/24 03/06/24 Unknown History multivitamin 1 tab PO DAILY 02/27/24 03/06/24 Unknown History Exam Height,Weight and Vital Signs: Height 5 ft 8 in Weight 98.146 kg Last Vital Signs Temp 97.1 F 03/11/24 07:11 Pulse 74 03/11/24 07:11 Resp 16 03/11/24 07:11 BP 126/80 03/11/24 07:11 Pulse Ox 95 03/11/24 07:11 O2 Del Method Room Air 03/11/24 07:11 Airway Mallampati Class: III TM Dist: >3cm Neck ROM: Full Loose/Missing/Broken Teeth: No Heart: RRR Lungs: CTA Assessment and Plan Assessment Anesthesia Assessment: Anesthesia Plan Discussed Final Anesthetic Review History of Problems with Anesthesia: No NPO: Yes ASA Class: II Final Preanesthetic Review: Meds/Allgs Chart Reviewed, Consent Obtained/Reviewed and Anes Risks/Benef Reviewed Patient Risk: Low Procedure Risk: Low Anesthetic Plan Anesthetic Plan: GA Disposition: Standard PACU
[2024-03-11] MEDS: Lactated Ringers 1,000 ML 100 ML IVCONT (07:17)
[2024-03-11 07:23] LABS: Glucose, Whole Blood 174 mg/dL (60-115)
--- NOTE | 2024-03-11 07:25 | MHC.SHP ---
Pre-Procedural Eval Section A - 24 Hr Update-Section A only Date of Service: 03/11/24 The patient is an INPATIENT: No Changes since office visit: No Cold of Flu in the past 2 weeks, No New Medical Problems, No Changes in Medication and No Patient answered all questions The patient has been examined within 24 hours of the surgical procedure. The History & Physical has been completed within 30 days and I have reviewed it.: Yes Section B - Complete if H&P > 30 days Chief Complaint: Umbilical hernia without obstruction or gangrene Allergies: Allergies Allergy/AdvReac Type Severity Reaction Status Date / Time amoxicillin [AMOXICILLIN] Allergy Unknown HIVES Verified 02/18/24 09:34 monosodium glutamate [MSG] Allergy Unknown NAUSEA Verified 02/18/24 09:34 Penicillins [PENICILLINS] Allergy Unknown HIVES Verified 02/18/24 09:34 Plan I have reviewed the history and physical and performed a pertinent physical examination on my patient. No changes have occurred unless specified. Time Spent With Patient Time: Total time managing care of this patient today ____ minutes.
--- NOTE | 2024-03-11 08:10 | P.OP_ITS ---
Operative Note Operative Note Date of Service: 03/11/24 Narrative: Preop diagnosis: Chronically incarcerated umbilical hernia Postop diagnosis: The same, with incarcerated omental fat Procedure: Repair of chronically incarcerated umbilical hernia, with Ventralex mesh Surgeon: Ti Kaufman MD neurosurgical physician assistant: REGINA Mayers The patient is a 64-year-old male, with morbid obesity, with note of a chronically incarcerated umbilical hernia. He was symptoms, he wanted to proceed with repair. He understood the technique of repair of the umbilical hernia with mesh. He was aware of the risks, benefits, and alternatives He was brought to the operating room. He was placed supine under general anesthesia via endotracheal tube. The abdomen was prepped and draped in the usual sterile fashion. A surgical time-out was done. The patient received cefazolin 2 g IV preoperatively I made a short curvilinear transverse incision on the supraumbilical margin with a blade 15 after infiltration of the area with lidocaine 1%. I carried down the incision through the full-thickness of the skin and subcutaneous fat with electrocautery until was able to visualize a hernia sac. I sharply dissected the sac off of the umbilical flap and the subcutaneous layer down to the fascial defect. This was done with Metzenbaum scissors. I divided adhesions from the fascial edge to the hernia contents with Metzenbaum scissors until I was able to completely reduce the hernia contents. The sac had been opened at this point. I palpated the underside of the fascial defect with the index finger and no adhesions surrounding this nor any current bowel loop. The fascial defect was about 1.5 cm I therefore used a small-sized Ventralex mesh. This was positioned under the fascial defect and flattened. I secured the Prolene straps of the mesh the fascial edge on both sides with Prolene 2 sutures. I trimmed the Prolene straps flush on the fascial level. I closed the fascial layer with a [id number] using 1 stitch The umbilicus was tacked down to the fascia with a Polysorb 3-0 stitch to re- create the dimple. The subcutaneous layer was reapposed with Polysorb 3-0 interrupted sutures. Skin closure was achieved with Polysorb 4-0 subcuticular running sutures. Steri-Strips and dressings were applied. The incision was infiltrated with Marcaine 0.5% postop analgesia. The procedure was then completed. The patient tolerated procedure well. There were no immediate complications. Initial and final counts of sponges and instruments were correct. Estimated blood loss was about 5 cc. The patient was extubated without difficulty and transferred to the recovery room with stable vital signs.
[2024-03-11] MEDS: oxyCODONE HCl Immed Release 5 MG TABLET PO (09:25)
== END 2024-03-11 09:59 | disposition home or self-care (01) ==
PROVIDERS: PCP Internal Medicine; Visit Provider Surgery
PROC: (CPT 49592; principal; 2024-03-11 07:30)
DX: K42.0 Umbilical hernia with obstruction, without gangrene (principal); I10 Essential (primary) hypertension; E11.9 Type 2 diabetes mellitus without complications; D04.9 Carcinoma in situ of skin, unspecified; C67.9 Malignant neoplasm of bladder, unspecified; E66.01 Morbid (severe) obesity due to excess calories; Z68.32 Body mass index [BMI] 32.0-32.9, adult; Z79.84 Long term (current) use of oral hypoglycemic drugs; Z79.899 Other long term (current) drug therapy; Z88.0 Allergy status to penicillin; Z88.1 Allergy status to other antibiotic agents; Z91.018 Allergy to other foods; Z98.52 Vasectomy status; F17.210 Nicotine dependence, cigarettes, uncomplicated
CPT/HCPCS: 49592; 82947; C1781; J0131; J0690; J1100; J2250; J2405; J2704; J2795; J3010

== ENCOUNTER → 2024-03-11 06:04 | Outpatient (BNV) | payer OTHER, SELFPAY | PROVIDERS: PCP Internal Medicine; Visit Provider Surgery | DX: K42.0 Umbilical hernia with obstruction, without gangrene (principal) | CPT/HCPCS: 49592 ==

== ENCOUNTER 2024-03-24 11:01 | Outpatient (AMB) | payer OTHER, SELFPAY ==
--- NOTE | 2024-03-24 11:02 | MHC.OFFVIS ---
Intake Visit Reasons: S/P umbilical hernia w/poss mesh Intake Note: Patient is seen in office for post op assessment post umbilical hernia repair. Pt c/o: reports no complaints pertaining to surgery. surgery:03/11/24 Cargo Agent Required: No Accompanied by: Self / Same As Patient Allergies amoxicillin [AMOXICILLIN] Allergy (Unknown, Verified 03/24/24 11:03) HIVES monosodium glutamate [MSG] Allergy (Unknown, Verified 03/24/24 11:03) NAUSEA Penicillins [PENICILLINS] Allergy (Unknown, Verified 03/24/24 11:03) HIVES HPI HPI S/P umbilical hernia w/poss mesh: Details: He had undergone repair of a chronically incarcerated umbilical hernia with mesh last 03/11/2024. He tolerated the procedure well He says he is doing well and denies significant complaints. [facility] Medical History Malignant neoplasm of urinary bladder (~2018) Hematuria HTN (hypertension) DMII (diabetes mellitus, type 2) Chelo disease Nicotine dependence, cigarettes, uncomplicated History of condyloma acuminatum Surgical History History of umbilical hernia repair (03/11/24) History of transurethral resection of bladder tumor (TURBT) History of vasectomy History of tonsillectomy Family History Mother Thyroid disease Father Diabetes Heart failure Social History Alcohol intake: current Alcohol intake frequency: holidays/special occasions only Comment: medicated Patient Tobacco Use Status: Current everyday Tobacco user Tobacco use type: Cigarette Cigarettes Per Day: 10 Review of Systems Const Denies chills and Denies fever(s) Card Denies chest pain at rest Resp Denies cough GI Denies vomiting Physical Exam Const General: comfortable and no acute distress GI Other: Hernia repair site well healed, not infected, repair intact Palpation (GI): Soft to palpation and not firm Assessment & Plan Assessment & Plan (1) Umbilical hernia: Code(s): K42.9 - Umbilical hernia without obstruction or gangrene Category: Medical Plan: Status post repair with mesh. He is doing very well. The repair site is intact. I advised him to avoid lifting anything more than 20 lb for at least 2 more weeks. He can follow up on a p.r.n. basis. Coding Level of Care Code Global (48676) Diagnoses Umbilical hernia K42.9
== END 2024-03-24 11:40 | disposition home or self-care (01) ==
PROVIDERS: PCP Internal Medicine; Visit Provider Surgery
DX: K42.9 Umbilical hernia without obstruction or gangrene (principal)
CPT/HCPCS: 99212

== ENCOUNTER → 2024-03-24 11:01 | Outpatient (BNVA) | payer OTHER, SELFPAY | PROVIDERS: PCP Internal Medicine; Visit Provider Surgery ==

== ENCOUNTER 2024-03-24 11:51 | Outpatient (REF) | payer OTHER, SELFPAY ==
[2024-03-24 13:46] LABS: MANUAL DIFF FLAG NO
[2024-03-24 13:54] LABS: Basophils Percent Auto 0.5 % (0-2); Eosinophils Percent Auto 0.3 % (0-4); Hematocrit 43.7 % (42.0-52.0); Hemoglobin 14.7 g/dl (14.0-18.0); Imm Gran Abs Auto 0.05 X10*3/uL (0.00-0.03); Imm Gran Pct Auto 0.8 % (0.0-0.4); Lymphocytes Absolute Auto 2.4 X10*3/uL (1.2-4.9); Lymphocytes Percent Auto 36.5 % (20-40); Mean Corpuscular HGB Conc 33.6 g/dl (31.0-36.0); Mean Corpuscular Hemoglobin 30.8 pg (27.0-33.0); Mean Corpuscular Volume 91.6 fL (80.0-98.0); Mean Platelet Volume 11.9 fL (9.4-12.4); Monocytes Absolute Auto 0.6 X10*3/uL (0.1-1.2); Monocytes Percent Auto 8.9 % (2-11); Neutrophils Absolute Auto 3.4 x10*3/uL (2.0-8.3); Platelet Count 170 X10*3/uL (160-400); Red Blood Count 4.77 X10*6/uL (4.60-5.80); Red Cell Distribution Width 13.5 % (11.0-16.0); White Blood Count 6.4 X10*3/uL (4.8-10.8)
[2024-03-24 14:50] LABS: Thyroid Stimulating Hormone 0.68 uIU/mL (0.32-4.0)
== END 2024-03-24 11:52 | disposition home or self-care (01) ==
LOC: HO.HMGCLDS 11:51
PROVIDERS: PCP Internal Medicine; Visit Provider Internal Medicine
DX: E11.9 Type 2 diabetes mellitus without complications (principal); I10 Essential (primary) hypertension; K42.9 Umbilical hernia without obstruction or gangrene
CPT/HCPCS: 36415; 84443; 85025

== ENCOUNTER 2024-04-04 09:42 | Outpatient (AMB) | payer OTHER, SELFPAY ==
--- NOTE | 2024-04-04 07:46 | A.OFFVIS_ITS ---
Intake Visit Reasons: Current Smoker Allergies amoxicillin [AMOXICILLIN] Allergy (Unknown, Verified 03/24/24 11:03) HIVES monosodium glutamate [MSG] Allergy (Unknown, Verified 03/24/24 11:03) NAUSEA Penicillins [PENICILLINS] Allergy (Unknown, Verified 03/24/24 11:03) HIVES HPI HPI Current Smoker: Details: Initial visit for this 64yo smoker with a 35_PYH. Patient started smoking at age 15 for 49 years at 3/4-1ppd. . Denies marijuana use. Denies second hand smoke exposure. Denies exposure to chemicals or substances like asbestos. . Denies known family history of lung cancer. Reports personal history of bladder cancer - s/p TURBT in 2019. Denies chest CT in last year. . Denies recent travel outside the [place]. Denies recent respiratory illness or recent hospitalization for respiratory issues. Denies testing positive for COVID. Admits receiving COVID Vaccine. . Denies fever, chills, new/worsening cough, hemoptysis, hoarseness or dysphagia. Denies significant chest pain, significant dyspnea or unintentional weight loss. Patient Lung Cancer Screening Questionnaire reviewed with patient by provider. . Shared Decision Making Completed. Patient meets criteria. Discussed in detail with patient, the risk vs benefit of LDCT screening. Patient consents to proceed with scan. Discussed smoking cessation. [facility] Medical History (Updated 04/04/24 @ 09:55 by Rhina Thomason PA-C) Malignant neoplasm of urinary bladder (~2019) Hematuria HTN (hypertension) DMII (diabetes mellitus, type 2) Chelo disease Nicotine dependence, cigarettes, uncomplicated History of condyloma acuminatum Surgical History History of umbilical hernia repair (03/11/24) History of transurethral resection of bladder tumor (TURBT) History of vasectomy History of tonsillectomy Family History Mother Thyroid disease Father Diabetes Heart failure Social History (Updated 04/04/24 @ 09:55 by Rhina Thomason PA-C) Alcohol intake: current Alcohol intake frequency: holidays/special occasions only Comment: medicated Patient Tobacco Use Status: Current everyday Tobacco user Tobacco use type: Cigarette Years Smoked: (onset 15yo, 3/4-1ppd x 49yrs, 35+PYH) Assessment & Plan Assessment & Plan (1) Nicotine dependence, cigarettes, uncomplicated: Comment: (onset 15yo, 3/4-1ppd x 49yrs, 35+PYH) Code(s): F17.210 - Nicotine dependence, cigarettes, uncomplicated Category: Medical Plan: - SDM visit completed today in office. - Patient meets criteria for LDCT for lung cancer screening purposes and is asymptomatic. - Smoking cessation counseling offered. Patients can always call [phone]. - Will arrange for a LDCT scan of the chest for screening purposes at [facility]. - Risks, benefits, and alternatives were discussed in detail and the patient agrees to proceed. - Risks discussed include but are not limited to: radiation exposure, anxiety during testing and while awaiting results, false negatives, false positives and possibility of additional intervention such as further imaging or surgical procedures for benign disease. - Benefits are obviously detection of lung cancer at an early stage which can lead to improved outcomes. - Discussed the importance of screening program compliance with adherence to yearly LDCT scan as scheduled - or sooner interval scans for personalized screening regimen. - Discussed follow up plan. Our office will send a letter discussing results and if needed set up phone call and office visit based on CT findings. - Patient educated on results categorization and the management decisions for suspicious findings potentially found on the screening LDCT scan. Any patient with a Lung RADS score of 3 or 4 will be reviewed by a multidisciplinary team at [facility] to form a plan of action in regards to scan findings. - If further work up is warranted for a suspicious lung finding this will be followed by the Lung Cancer Screening program in conjunction with the Thoracic Surgery Department at [facility]. - A copy of the office note and LDCT will be sent to the patient's PCP - as well as documentation on any associated further plans of care. - Incidental findings on LDCT are the PCP's responsibility. These findings are indicated with an S finding on the LDCT Assessment. A note discussing the findings will be sent to the PCP who is then responsible for further management. - All questions answered.? Coding Level of Care Code Lung Cancer Screening G0296 Diagnoses Nicotine dependence, cigarettes, uncomplicated F17.210
== END 2024-04-04 10:12 | disposition home or self-care (01) ==
PROVIDERS: PCP Internal Medicine; Visit Provider Physician Assistant Medical
DX: F17.210 Nicotine dependence, cigarettes, uncomplicated (principal)
CPT/HCPCS: G0296

== ENCOUNTER 2024-04-04 10:11 | Outpatient (REF) | payer OTHER, SELFPAY ==
--- NOTE | ~2024-04-04 | CT_ITS ---
EXAMINATION: CT LOW-DOSE SCREENING CHEST WITHOUT CONTRAST CLINICAL INFORMATION: Nicotine dependence, cigarettes, uncomplicated. The patient is a current smoker with a 45 pack-year history of smoking. COMPARISON: None available. TECHNIQUE: Multidetector volumetric CT imaging of the chest is performed on a Siemens SOMATOM Definition scanner without contrast using low dose technique. Additional 2D coronal and sagittal reformatted images and axial 3D maximum intensity projection (MIP) images are generated on the CT workstation. This CT examination was performed using dose optimization techniques as appropriate, variously including the following: *Automated exposure control *Adjustment of mA and/or kV according to patient size (this includes techniques or standardized protocols for targeted exams where dose is matched to indication/reason for exam; i.e. extremities or head) *Use of iterative reconstruction technique TOTAL EXAM DLP: 66 mGy-cm. CTDIvol: 1.94 mGy. FINDINGS: PULMONARY NODULES: No suspicious pulmonary nodules. A few tiny punctate nodules are seen (see saved jj images). LUNGS: Lungs bilaterally symmetrically expanded. There is minimal emphysematous change and some mild bronchial thickening without bronchiectasis. No effusion or pneumothorax. Central airways patent. MEDIASTINUM: No mediastinal, hilar or axillary adenopathy or free fluid collection. CORONARY ARTERY CALCIFICATION: Marked THYROID GLAND: Unremarkable to the extent seen. CARDIOVASCULAR STRUCTURES: Aortic and heart size normal. No pericardial effusion. CHEST WALL/AXILLA: Unremarkable. UPPER ABDOMEN: There is hepatic steatosis. OSSEOUS STRUCTURES: No suspicious focal findings. CT/CT lung screening IMPRESSION: No findings seen suspicious for malignancy. ASSESSMENT: 1. Lung-RADS Category 2: Benign appearance or behavior of nodules. N/A 2. Lung-RADS Category S: Negative. There are no clinically significant or potentially clinically significant findings not related to the lungs requiring urgent additional evaluation. RECOMMENDATION: Continued routine annual low-dose CT lung screening in 1 year is recommended. An order for CT CHEST LOW DOSE CANCER SCREENING ([id number]) can be placed. Electronically signed by: Candelario Hurd MD 05/24/2024 03:20 PM [facility] [place], [place]
== END 2024-04-04 10:12 | disposition home or self-care (01) ==
LOC: HO.CT 10:11
PROVIDERS: PCP Internal Medicine; Visit Provider Physician Assistant Medical
DX: Z12.2 Encounter for screening for malignant neoplasm of respiratory organs (principal); F17.210 Nicotine dependence, cigarettes, uncomplicated
CPT/HCPCS: 71271

== ENCOUNTER 2024-06-03 13:46 | Outpatient (AMB) | payer OTHER, SELFPAY ==
--- NOTE | 2024-06-03 14:01 | MHC.OFFVIS ---
Vital Signs 06/03/24 14:02 Height 5 ft 8 in Weight 212 lb 8.41 oz BMI 32.3 BP 130/74 Blood Pressure Location Lt brachial Position Sitting Pulse 72 Pulse Source Pulse Oximeter Intake Visit Reasons: follow up Butter Printer Required: No Accompanied by: Self / Same As Patient Allergies amoxicillin [AMOXICILLIN] Allergy (Unknown, Verified 03/24/24 11:03) HIVES monosodium glutamate [MSG] Allergy (Unknown, Verified 03/24/24 11:03) NAUSEA Penicillins [PENICILLINS] Allergy (Unknown, Verified 03/24/24 11:03) HIVES Medication List - Last Reconciled 06/03/24 by Solo Arias MD atorvastatin 80 mg PO DAILY cholecalciferol (vitamin D3) 25 mcg PO DAILY ibuprofen 600 mg PO Q6H PRN lisinopril 10 mg PO DAILY lorazepam 0.5 mg PO BEDTIME PRN metformin ER 750 mg PO BID multivitamin 1 tab PO DAILY HPI Comments Details: Tawanda returns for follow-up. Recently seen in consultation regarding preoperative risk stratification for hernia surgery. That was uneventful. He has numerous cardiovascular risk factors including obesity, smoking, diabetes, hypertension. Within limits of his activity, no clear-cut cardiac symptoms. [facility] Medical History (Updated 06/03/24 @ 15:43 by Solo Arias MD) Malignant neoplasm of urinary bladder (~2018) Hematuria HTN (hypertension) DMII (diabetes mellitus, type 2) Chelo disease Nicotine dependence, cigarettes, uncomplicated History of condyloma acuminatum Surgical History History of umbilical hernia repair (03/11/24) History of transurethral resection of bladder tumor (TURBT) History of vasectomy History of tonsillectomy Family History Mother Thyroid disease Father Diabetes Heart failure Social History Alcohol intake: current Alcohol intake frequency: holidays/special occasions only Comment: medicated Patient Tobacco Use Status: Current everyday Tobacco user Tobacco use type: Cigarette Years Smoked: (onset 15yo, 3/4-1ppd x 49yrs, 35+PYH) Review of Systems Const Denies chills, Denies fatigue, Denies fever(s), Denies weight gain and Denies weight loss ENT Denies dizziness Card Denies chest pain, Denies leg edema, Denies lightheadedness, Denies palpitations, Denies dyspnea on exertion, Denies orthopnea and Denies other Resp Denies cough and Denies dyspnea on exertion GI Denies hematochezia and Denies change in stool character Musc Denies abnormal gait, Denies muscle weakness, Denies numbness, Denies radiating pain into limb and Denies tingling Neuro Denies abnormal gait, Denies dizziness, Denies numbness and Denies tingling Endo Denies fatigue and Denies palpitations Physical Exam Vital Signs: Last Vital Signs Pulse 72 06/03/24 14:02 BP 130/74 06/03/24 14:02 BMI result Body Mass Index 32.3 Const General: comfortable and no acute distress Orientation/consciousness: patient oriented x3 HEENT Other: Unremarkable Head: Yes normal to inspection Neck Neck: Yes normal visual inspection Chest Chest palpation & inspection: normal inspection of the chest Resp Auscultation: clear to auscultation bilaterally Cardio Palpation: normal PMI Heart sounds: S1 normal heart sound present, S2 normal heart sound present, no gallops, no murmurs and no rubs GI Palpation (GI): Soft to palpation Back/Spine/Pelvis Other: unremarkable Skin General skin exam: no rashes or lesions noted Neuro General: patient oriented x3 Extrem General: Yes normal to inspection Psych Mental Status: mental status grossly normal Assessment & Plan Assessment & Plan (1) Atherosclerotic cardiovascular disease: Code(s): I25.10 - Atherosclerotic heart disease of [place] coronary artery without angina pectoris Category: Medical (2) HTN (hypertension): Code(s): I10 - Essential (primary) hypertension Category: Medical (3) DMII (diabetes mellitus, type 2): Code(s): E11.9 - Type 2 diabetes mellitus without complications Category: Medical (4) Nicotine dependence: Code(s): F17.200 - Nicotine dependence, unspecified, uncomplicated Category: Medical (5) Morbid (severe) obesity due to excess calories: Code(s): E66.01 - Morbid (severe) obesity due to excess calories Category: Medical Plan Cardiac studies reviewed. In the echocardiogram, LVEF 55-60%. No wall motion abnormalities. Otherwise, unremarkable. In the exercise stress test, he exercised for 7 METS. Had hypertensive blood pressure response. In the echocardiographic component, posterior/inferolateral wall but otherwise no obvious abnormalities. In the lung CT scan, marked coronary artery calcifications. Overall, he has an extensive risk factor profile, testing as above. Recommend get coronary CTA. Otherwise, mainly risk factor modification. Must stop smoking and we discussed that today. Optimal management of diabetes, hypertension, dyslipidemia. Follow-up after the CTA. Orders: Orders CT Cardiac Coronary Angio Today I25.10 - Atherosclerotic heart disease of [place] coronary artery without angina pectoris Basic Metabolic Panel Today I25.10 - Atherosclerotic heart disease of [place] coronary artery without angina pectoris Coding Level of Care Code Est Pt Level 4 (68075) Diagnoses Atherosclerotic cardiovascular disease I25.10 HTN (hypertension) I10 DMII (diabetes mellitus, type 2) E11.9 Nicotine dependence F17.200 Morbid (severe) obesity due to excess calories E66.01
[2024-06-03 14:02] VITALS: BP 130/74; PULSE 72; BMI 32.3
== END 2024-06-03 14:39 | disposition home or self-care (01) ==
PROVIDERS: PCP Internal Medicine; Visit Provider Internal Medicine
DX: I25.10 Atherosclerotic heart disease of native coronary artery without angina pectoris (principal); I10 Essential (primary) hypertension; E11.9 Type 2 diabetes mellitus without complications; F17.200 Nicotine dependence, unspecified, uncomplicated; E66.01 Morbid (severe) obesity due to excess calories
CPT/HCPCS: 99214

== ENCOUNTER → 2024-06-03 13:46 | Outpatient (BNVA) | payer OTHER, SELFPAY | PROVIDERS: PCP Internal Medicine; Visit Provider Internal Medicine ==

== ENCOUNTER 2024-06-27 08:56 | Outpatient (AMB) | payer OTHER, SELFPAY ==
--- NOTE | 2024-06-27 09:03 | MHC.OFFVIS ---
Intake Visit Reasons: 1 year Cysto Intake Note: Patient is present for 1Y Cystoscopy Urology Medication:NONE Antibiotic Allergy:AMOXICILLIN,PENICILLIN Blood Thinner:NONE Lot:[id number] Exp:05/12/27 Worm Picker Required: No Allergies amoxicillin [AMOXICILLIN] Allergy (Unknown, Verified 06/27/24 09:06) HIVES monosodium glutamate [MSG] Allergy (Unknown, Verified 06/27/24 09:06) NAUSEA Penicillins [PENICILLINS] Allergy (Unknown, Verified 06/27/24 09:06) HIVES HPI Comments Details: Kelton is a pleasant male. He is a patient of Dr. Coughlin. He is seen for the following urologic conditions - bladder cancer low-grade superficial Twelve month surveillance cystoscopy Mild bladder trabeculation Is experiencing some weakness of stream Trial Flomax Bladder cancer low-grade superficial November 2018 Initial diagnosis November 2018 Risk factors - organic chemical exposure - acetone and toluene many years ago, smoking Procedure - TURBT - November 2018 low-grade superficial Cytology - November 2018. 05/30 atypical Cystoscopy - 10/27 NAD, 05/29 NAD, 05/30 NAD Prior PSA 05/29 0.2 Therapeutic plan - move to follow-up 12 months [facility] Medical History (Updated 06/27/24 @ 09:49 by Nathan Borja MD) Malignant neoplasm of urinary bladder (~2018) Hematuria HTN (hypertension) DMII (diabetes mellitus, type 2) Chelo disease Nicotine dependence, cigarettes, uncomplicated History of condyloma acuminatum Surgical History History of umbilical hernia repair (03/11/24) History of transurethral resection of bladder tumor (TURBT) History of vasectomy History of tonsillectomy Family History Mother Thyroid disease Father Diabetes Heart failure Social History Alcohol intake: current Alcohol intake frequency: holidays/special occasions only Comment: medicated Patient Tobacco Use Status: Current everyday Tobacco user Tobacco use type: Cigarette Years Smoked: (onset 15yo, 3/4-1ppd x 49yrs, 35+PYH) Review of Systems Const Denies chills and Denies fever(s) Card Reports no additional complaints and Denies syncope Resp Denies cough GI Denies abdominal pain and Denies heartburn Reports as per HPI and Denies change in libido Neuro Denies syncope Psych Denies change in libido Endo Denies change in libido Physical Exam Const General: cooperative, healthy appearing, comfortable and no acute distress Orientation/consciousness: patient oriented x3 HEENT Face and sinus: Yes normal facial exam Mouth: moist mucous membranes Neck Neck: Yes normal visual inspection, Yes full ROM and Yes trachea midline Chest Chest palpation & inspection: normal inspection of the chest Resp Effort & Inspection: normal respiratory effort, able to speak in complete sentences and no respiratory distress GI Inspection: Yes normal to inspection Back/Spine/Pelvis Cervical Spine: normal cervical lordosis Thoracic/Lumbar Spine: thoracic and lumbar spine normal to inspection Skin General skin exam: no rashes or lesions noted Neuro General: patient oriented x3, gait normal, tone normal and moves all extremities Extrem General: Yes normal to inspection and Yes capillary refill normal Office Procedures Cystoscopy Consent Discussed risk and benefit or proposed procedure with the patient. Information consent for procedure given to the patient. Discussed technical aspects, risks, benefits and alternatives in full. Addressed all of the patient's questions and concerns regarding the procedure. The patient demonstrated knowledge and understanding. They wish to proceed with this procedure. Preparation The patient was prepped in the usual manner. A ornamental plasterer helper was present and in the room. Genitalia was prepped with betadine solution in a sterile manner. Lidocaine Jelly 2% was placed into the urethra and 16Fr flexible Olympus cystoscope was inserted into the meatus after adequate lubrication. Procedure Cystoscopy performed using a disposable Urovue digital 16 Uzbek cystoscope. Meatus uncircumcised Urethra anterior and posterior urethra normal Prostatic Urethra unremarkable Bladder examination with retroflexion of cystoscope Bladder Orifices normal shape and position Bladder Capacity normal Trabeculations grade 1 Cellule Formation - Diverticulum Formation - Mucosal Erythema - Bladder Tumor - 36036-[id number] DISPOSABLE SCOPE URO-G FLEXIBLE SCOPE Procedure code (CPT) selection complete Office Meds lidocaine HCl 2 % mucosal jelly in applicator Performing Provider: Ntahan Borja MD [place] [facility] [place] [facility] Administered by: Nathan Borja MD on 06/27/24 09:47 Dose Route Admin Location Dispensed Lot Number Expiration Date [facility] Doorkeeper 10 mL intra-urethral 10 mL Results AMB Urinalysis, Automated UA Leukoctes 0 Javier/uL Last Edit by KARLA Fritz on 06/27/24 09:16 UA Nitrite Negative Last Edit by KARLA Fritz on 06/27/24 09:16 UA Urobilinogen 0.2 mg/dL Last Edit by KARLA Fritz on 06/27/24 09:16 UA Protein 15 mg/dL Last Edit by KARLA Fritz on 06/27/24 09:16 UA pH 5.5 Last Edit by KARLA Fritz on 06/27/24 09:16 UA Blood 0 Rex/uL Last Edit by KARLA Fritz on 06/27/24 09:16 UA Specific Rew 1.015 Last Edit by KARLA Fritz on 06/27/24 09:16 UA Ketone Positive Last Edit by KARLA Fritz on 06/27/24 09:16 UA Bilirubin 0 mg/dL Last Edit by KARLA Fritz on 06/27/24 09:16 UA Glucose 1000 mg/dL Last Edit by KRALA Fritz on 06/27/24 09:16 Assessment & Plan Assessment & Plan (1) Malignant neoplasm of urinary bladder: Onset Date: ~2018 Comment: Low-grade Superficial bladder cancer initial diagnosis 2018 Code(s): C67.9 - Malignant neoplasm of bladder, unspecified Category: Medical (2) Balanitis: Code(s): N48.1 - Balanitis Category: Medical (3) Bladder outlet obstruction: Code(s): N32.0 - Bladder-neck obstruction Category: Medical Plan Twelve month follow-up cystoscopy Trial Flomax will call if successful Refill cluster amoxicillin Orders: Orders AMB Cystoscopy Today C67.9 - Malignant neoplasm of bladder, unspecified AMB Urinalysis Automated Today Z13.9 - Encounter for screening, unspecified Medications: New tamsulosin (Flomax) 0.4 mg PO BEDTIME 30 days 30 tabs 1RF N32.0 - Bladder-neck obstruction Refilled clotrimazole-betamethasone 1-0.05 % thin layer to area 2x daily 1 appl topical BID 15 grams 0RF balanitis N48.1 - Balanitis Patient Instructions: Imaging studies, laboratory and physical exam results were discussed and reviewed in detail. No major barriers to patient understanding were identified. An opportunity to ask questions regarding the treatment plan was provided. All questions were answered. The patient expressed understanding and agreement with the above treatment plan. The patient is aware they should contact our office by phone for worsening of their current condition or the appearance of new urologic symptoms. Compliance is encouraged with any medications and followup testing that is ordered. It is a privilege to participate in the urologic care of your patient. If you have any questions or concerns regarding treatment for the above conditions, or other urologic issues, please do not hesitate to contact me. The office telephone contact is [phone]. This note is constructed using voice recognition software. While every effort has been made to ensure accuracy pattern molder errors may have been included. Yours sincerely, Dr Nathan Borja MD, [facility] - Urology Providers of Expert, Compassionate Care for the Genitourinary System Coding Level of Care Code Est Pt Level 4 (20883) Diagnoses Malignant neoplasm of urinary bladder C67.9 Balanitis N48.1 Bladder outlet obstruction N32.0 CPT Codes Cystoscopy - CPT: 69461-[id number] ([id number])
== END 2024-06-27 09:47 | disposition home or self-care (01) ==
PROVIDERS: PCP Internal Medicine; Visit Provider Urology
DX: C67.9 Malignant neoplasm of bladder, unspecified (principal); N48.1 Balanitis; N32.0 Bladder-neck obstruction; Z13.9 Encounter for screening, unspecified
CPT/HCPCS: 52000; 99214

== ENCOUNTER → 2024-06-27 08:56 | Outpatient (BNVA) | payer OTHER, SELFPAY | PROVIDERS: PCP Internal Medicine; Visit Provider Urology | DX: C67.9 Malignant neoplasm of bladder, unspecified (principal); N48.1 Balanitis; N32.0 Bladder-neck obstruction | CPT/HCPCS: 52000; 81003 ==

== ENCOUNTER 2024-08-06 10:23 | Outpatient (REF) | payer OTHER, SELFPAY ==
--- OUTSIDE RECORDS SUMMARY | 2024-08-06 12:28 | XMS_ITS ---
Author Organization Bhavin Coughlin DO, [facility] Address [address] [place], [place] [id number] Care Team Providers Care Bureau Chief Name Role Phone Bhavin Coughlin Primary Care Provider REASON FOR VISIT Refills MEDICATIONS Medication SIG (Take, Route, Fr equency, Duration) Notes Start Date End Date Status metFORMIN HCl ER 750 MG 3 tablets with e vening meal Orally Once a day for 90 days 05/07/2024 Active Azithromycin 250 MG 2 tablets on the fir st day, then 1 tablet daily for 4 days Orally Once a day for 5 day(s) 06/17/2024 Active SOCIAL HISTORY Sex Assigned At : Social History Observation Description Sex Assigned At Male Encounters Encounter Location Date Provider Diagnosis Bhavin Caleb Coughlin DO, [facility] [address], [place] [id number] 06/17/2024 Bhavin Coughlin Type 2 diabetes mellitus without complication, without long-term current use of insulin E11.9 ASSESSMENTS Encounter Date Diagnosis Assessment Notes Treatment Notes Treatment Clinical Notes 06/17/2024 Type 2 diabetes mellitus without complication, without long-term current use of insulin (ICD-10 - E11.9) PLAN OF TREATMENT Medication Medication Name Sig Start Date Stop Date Notes metFORMIN HCl ER 750 MG 3 tablets with e vening meal Orally Once a day for 90 days 05/07/2024 Azithromycin 250 MG 2 tablets on the fir st day, then 1 tablet daily for 4 days Orally Once a day for 5 day(s) 06/17/2024
--- OUTSIDE RECORDS SUMMARY | 2024-08-06 12:28 | XMS_ITS ---
Author Organization Bhavin Coughlin DO, FACP Address [address] [place], [place] [id number] Care Team Providers Care [place] Home Demonstration Agent Name Role Phone Madyson Bhavin Primary Care Provider REASON FOR VISIT Message MEDICATIONS Medication SIG (Take, Route, Fr equency, Duration) Notes Start Date End Date Status Moxifloxacin HCl 400 MG 1 tablet Orally Once a day for 7 days 06/30/2024 Active SOCIAL HISTORY Sex Assigned At : Social History Observation Description Sex Assigned At Male Encounters Encounter Location Date Provider Diagnosis Bhavin Coughlin DO, [address] [id number] 06/30/2024 Bhavin Coughlin PLAN OF TREATMENT Medication Medication Name Sig Start Date Stop Date Notes Moxifloxacin HCl 400 MG 1 tablet Orally Once a day for 7 days 06/30/2024
--- OUTSIDE RECORDS SUMMARY | 2024-08-06 12:28 | XMS_ITS ---
Author Organization Bhavin Coughlin DO, FACP Address [address] [place], [place] [id number] Care Team Providers Care Python Django Developer Name Role Phone Bhavin Coughlin Primary Care Provider [phone] ALLERGIES Allergen (clinical drug ingredient) Drug/Non Drug Allergy documented on EMR Reaction Allergy Type Onset Date Status amoxicillin Amoxicillin urticaria Drug Allergy Act albert REASON FOR VISIT 3 month f/u, Follow up Type 2 diabetes mellitus without complication, without long-term current useof insulin MEDICATIONS Medication SIG (Take, Route, Frequency, Duration) Notes Start Date End Date Status Vitamin D 1000 UNIT 1 capsule Orally Onc e a day 09/24/2015 Active Multivitamins 1 tablet Orally Once a day Active Lisinopril 10 MG 1 tablet Orally Once a day Active Atorvastatin Calcium 80 MG 1 tablet Oral ly Once a day Active LORazepam 1 MG 1 tablet at bedtime as needed Orally Once a day for 30 days 05/07/2024 Active metFORMIN HCl ER 750 MG 3 tablets with e vening meal Orally Once a day for 90 days 05/07/2024 Active SOCIAL HISTORY Tobacco Use: Social History Observation Description Date Details (start date - stop date) Current Smoker NA - NA Sex Assigned At : Social History Observation Description Sex Assigned At Male Tobacco Use/Smoking Question Answer Notes Patient is a current smoker How often do you smoke cigarettes? every day How many cigarettes a day do you smoke? 11-20 How soon after you wake up d o you smoke your first cigarette? 6-30 minutes Are you interested in quitting? Ready to quit Additional Findings: Tobacco User Mario t cigarette smoker, not currently using another form of tobacco Alcohol Screen Question Answer Notes Did you have a drink contain ing alcohol in the past year? Yes How often did you have a dri nk containing alcohol in the past year? 2 to 4 times a month (2 points) How many drinks did you have on a typical day when you were drinking in the past year? 1 or 2 drinks (0 point) How often did you have 6 or more drinks on one occasion in the past year? Never (0 point) Points 2 Interpretation Negative VITAL SIGNS BMI 33.73 kg/m2 05/07/2024 Blood pressure systolic 134 mm Hg 05/07/20 24 Blood pressure diastolic 66 mm Hg 024 Height 67.25 in 05/07/2024 Weight 217 lbs 05/07/2024 Encounters Encounter Location Date Provider Diagnosis Bhavin Ellis Madyson MENCHACA, [address] [phone] 05/07/2024 Bhavin Coughlin Type 2 diabetes yassine itus without complication, without long-term current use of insulin E11.9 ; Essential hypertension I10 ; Hypercholesterolemia E78.00 ; Vitamin D deficiency E55.9 and Anxiety F41.9 ASSESSMENTS Encounter Date Diagnosis Assessment Notes Treatment Notes Treatment Clinical Notes 05/07/2024 Type 2 diabetes yassine itus without complication, without long-term current use of insulin (ICD-10 - E11.9) 05/07/2024 Essential hypertensi on (ICD-10 - I10) 05/07/2024 Hypercholesterolemia (ICD-10 - E78.00) 05/07/2024 Vitamin D deficiency (ICD-10 - E55.9) 05/07/2024 Anxiety (ICD-10 - F41.9) PLAN OF TREATMENT Medication Medication Name Sig Start Date Stop Date Notes metFORMIN HCl 1000 MG 1 tablet with a me al Orally Twice a day Vitamin D 1000 UNIT 1 capsule Orally Once a day 09/24/2015 Multivitamins 1 tablet Orally Once a day Lisinopril 10 MG 1 tablet Orally Once a day Atorvastatin Calcium 80 MG 1 tablet Orally Once a day LORazepam 1 MG 1 tablet at bedtime as needed Orally Once a day for 30 days 05/07/2024 metFORMIN HCl ER 750 MG 3 tablets with e vening meal Orally Once a day for 90 days 05/07/2024 Next Appt Details Follow Up: 4 Months, Reason: follow up visit Progress Notes * Examination Category Sub-Category Detail Notes General Examination GENERAL APPEARANCE: in no ac errol distress, well developed, well nourished HEAD: normocephalic, atrau matic HEART: no murmurs, regular rate and rhythm, S1, S2 normal LUNGS: clear to auscultatio n bilaterally ABDOMEN: normal, bowel sounds present, soft, nontender, nondistended SKIN: warm and dry EXTREMITIES: no edema PSYCH: alert, oriented, cog nitive function intact
[2024-08-06 14:24] LABS: Anion Gap 14 (12-20); Blood Urea Nitrogen 8 mg/dL (9-16); Calcium 9.9 mg/dL (8.4-10.2); Carbon Dioxide 24 mmol/L (22-29); Chloride 102 mmol/L (96-108); Estimated Glomerular Filt Rate > 60; Potassium 4.4 mmol/L (3.3-5.1); Sodium 136 mmol/L (135-145)
[2024-08-06 15:10] LABS: Glucose Random 418 mg/dL (60-115)
== END 2024-08-06 10:24 | disposition home or self-care (01) ==
LOC: HO.HMGCLDS 10:23
PROVIDERS: Visit Provider Internal Medicine
DX: I25.10 Atherosclerotic heart disease of native coronary artery without angina pectoris (principal); I10 Essential (primary) hypertension
CPT/HCPCS: 36415; 80048

== ENCOUNTER 2024-08-06 16:18 | Emergency (ER) | payer OTHER, SELFPAY ==
--- OUTSIDE RECORDS SUMMARY | 2024-08-06 17:56 | XMS_ITS | Patient Health Record ---
Author Organization Bhavin Coughlin DO, FACP Address [address], [place] [id number] Care Team Providers Care Manager Of Software Name Role Phone Bhavin Coughlin Primary Care Provider [phone] ALLERGIES Allergen (clinical drug ingredient) Drug/Non Drug Allergy documented on EMR Reaction Allergy Type Onset Date Status amoxicillin Amoxicillin urticaria Drug Allergy Act albert RESULTS Component Value Reference Range Notes Urinalysis and Microscopic Reviewed date:01/28/2024 01:50:35 PM Interpretation:Negative Performing Lab:[facility], [address] [place] [phone] Notes/Report: Color Urine Yellow Appearance Urine Clear PH 5.5 5.0-9.0 Glucose Urine UA Negative Negative mg/dL Urine Blood Negative Negative Specific [place] - Urine 1.020 1.005-1.025 Urine Protein Negative Neg-Trace mg/dL Urine Ketones Negative Negative mg/dL Nitrite Urine Negative Negative Leukocyte Esterase Urine Negative Negative RBC Urine 0-2 0-2 /HPF WBC Urine 0-5 0-5 /HPF Squamous Epithelial Cell Urine 0-2 0-2 /HPF Bacteria Urine None Seen None Seen Hyaline Casts Urine 0-2 0-2 /LPF Comprehensive [place]. Panel Fa st Reviewed date:01/28/2024 02:21:21 PM Interpretation:Abnormal Performing Lab:[facility], [address] [place] [phone] Notes/Report: Sodium 139 135-145 mmol/L Potassium 4.4 3.3-5.1 mmol/L Chloride 108 96-108 mmol/L Carbon Dioxide 22 22-29 mmol/L Anion Gap 13 12-20 Blood Urea Nitrogen 10 9-16 mg/dL Creatinine 0.86 0.5-1.4 mg/dL Estimated Glomerular Filt Rate > 60 NOTE: For -[place] individuals, multiply the result by 1.210. Chronic Kidney Disease: Estimated GFR < 60 mL/min/1.73m2 Severe Kidney Disease: Estimated GFR < 15 mL/min/1.73m2 Glucose Fasting 143 60-99 mg/dL A fasting glucose of 126 mg/dl or greater on more than one occasion is considered diagnostic of diabetes. Calcium 9.3 8.4-10.2 mg/dL Bilirubin Total 0.7 0.0-1.0 mg/dL Aspartate Amino Transferase 28 5-37 U/L Alanine Aminotransferase 27 0-40 U/L Total Protein 6.9 6.5-8.0 g/dL Albumin Level 4.7 3.5-5.0 g/dL Alkaline Phosphatase 41 39-117 U/L Lipid Panel Reviewed date:01/28/2024 02:21:21 PM Interpretation:Abnormal Performing Lab:[facility], [address] [place] [phone] Notes/Report: Triglycerides 136 <150 mg/dL Desirable Triglyceride: less than 150 mg/dL Borderline High Triglyceride 150-199 mg/dL High Triglyceride: 200-499 mg/dL Very High Triglyceride: greater than or equal to 5OO mg/dL Cholesterol 101 <200 mg/dL Desirable Cholesterol: less than 200 mg/dL Borderline High Cholesterol: 200-239 mg/dL High Cholesterol: greater than 239 mg/dL LDL Cholesterol Calculated 43 <100 mg/dL Desirable LDL: less than 100 mg/dL Near Optimal/Above Optimal LDL: 110-129 mg/dL Borderline High LDL: 130-159 mg/dL High LDL: 160-189 mg/dL Very High LDL: greater than or equal to 190 mg/dL HDL Cholesterol 31 >40 mg/dL Desirable HDL: greater than 40 mg/dL Note: This HDL assay may give artificially low results in patients with liver disease. Microalbumin, Random Reviewed date:01/28/2024 01:50:35 PM Interpretation:Normal Performing Lab:[facility], [address] [place] [phone] Notes/Report: Creatinine Urine 135.16 Microalbumin Urine 16.0 Microalbum/Creatinine Ratio Ur 11.8 <30 ug/mg cr Albumin/Creatinine Ratio Reference Ranges: Normal: < 30 ug/mg creatinine Microalbuminuria: 30 - 300 ug/mg creatinine Clinical Albuminuria: > 300 ug/mg creatinine Hemoglobin A1c Reviewed date:01/28/2024 01:51:45 PM Interpretation:Abnormal Performing Lab:[facility], [address] [place] [phone] Notes/Report: Hemoglobin A1c % 7.6 <6.0 % Hemoglobin A1C Reference Range Adults: 4.8 - 6.0 % Non diabetic: < 6.0 % Goal: < 7.0 % Additional Action Suggested: > 8.0 % Note: Hemoglobin A1c results are invalid for patients with abnormal amounts of HbF. Blood transfusions may impact the HbA1c concentration in the patient sample. Estimated Average Glucose 171 eAG = Estimated average glucose which is %A1C expressed as average glucose, using the formula of the [id number] Average Glucose study (ADAG), Diabetes Care, Vol.31,#8, 2007 Glucose, Whole Blood Reviewed date:03/11/2024 09:07:51 AM Interpretation:Abnormal Performing Lab:[facility], [address] [place] [phone] Notes/Report: Glucose, Whole Blood 174 60-115 mg/dL METER # : [id number] Complete Blood Count Auto Di ff Reviewed date:03/24/2024 02:01:00 PM Interpretation:Normal Performing Lab:[facility], [address] [place] [phone] Notes/Report: White Blood Count 6.4 4.8-10.8 X10*3/uL Red Blood Count 4.77 4.60-5.80 X10*6/uL Hemoglobin 14.7 14.0-18.0 g/dl Hematocrit 43.7 42.0-52.0 % Mean Corpuscular Volume 91.6 80.0-98.0 fL Mean Corpuscular Hemoglobin 30.8 27.0-33.0 pg Mean Corpuscular HGB Conc 33.6 31.0-36.0 g/dl Red Cell Distribution Width 13.5 11.0-16.0 % Platelet Count 170 160-400 X10*3/uL Mean Platelet Volume 11.9 9.4-12.4 fL Neutrophils Percent Auto 53.0 45-73 % Imm Gran Pct Auto 0.8 0.0-0.4 % Lymphocytes Percent Auto 36.5 20-40 % Monocytes Percent Auto 8.9 2-11 % Eosinophils Percent Auto 0.3 0-4 % Basophils Percent Auto 0.5 0-2 % NRBC Pct Auto 0.0 0.0-0.2 /100WBC Neutrophils Absolute Auto 3.4 2.0-8.3 x10*3/u L Imm Gran Abs Auto 0.05 0.00-0.03 X10*3/uL Lymphocytes Absolute Auto 2.4 1.2-4.9 X10*3/u L Monocytes Absolute Auto 0.6 0.1-1.2 X10*3/uL Eosinophils Absolute Auto 0.0 0.0-0.4 X10*3/u L Basophils Absolute Auto 0.0 0.0-0.2 X10*3/uL NRBC Abs Auto 0.000 0.0-0.012 X10*3/uL Thyroid Stimulating Hormone Reviewed date:03/24/2024 03:05:16 PM Interpretation:Normal Performing Lab:[facility], [address] [place] [phone] Notes/Report: Thyroid Stimulating Hormone 0.68 0.32-4.0 uIU/ mL TSH 3rd Generation ([facility]) CT lung screening Reviewed date:05/26/2024 09:34:15 AM Interpretation:Benign Performing Lab: Notes/Report: [address] [address] [address] Scan Report Signed Patient: Tawanda Junior MR#: [id number] [birth year] : 1960 Acct:[id number] Age/Sex: 64 / M ADM Date: 04/04/24 Loc: HO.CT Attending Dr: Rhina Thomason PA-C Ordering Physician: Rhina Thomason PA-C Date of Service: 04/04/24 Procedure(s): CT lung screening Accession Number(s): [id number] cc: Bhavin Coughlin DO; Rhina Thomason PA-C EXAMINATION: CT LOW-DOSE SCREENING CHEST WITHOUT CONTRAST CLINICAL INFORMATION: Nicotine dependence, cigarettes, uncomplicated. The patient is a current smoker with a 45 pack-year history of smoking. COMPARISON: None available. TECHNIQUE: Multidetector volumetric CT imaging of the chest is performed on a Siemens SOMATOM Definition scanner without contrast using low dose technique. Additional 2D coronal and sagittal reformatted images and axial 3D maximum intensity projection (MIP) images are generated on the CT workstation. This CT examination was performed using dose optimization techniques as appropriate, variously including the following: *Automated exposure control *Adjustment of mA and/or kV according to patient size (this includes techniques or standardized protocols for targeted exams where dose is matched to indication/reason for exam; i.e. extremities or head) *Use of iterative reconstruction technique TOTAL EXAM DLP: 66 mGy-cm. CTDIvol: 1.94 mGy. FINDINGS: PULMONARY NODULES: No suspicious pulmonary nodules. A few tiny punctate nodules are seen (see saved jj images). LUNGS: Lungs bilaterally symmetrically expanded. There is minimal emphysematous change and some mild bronchial thickening without bronchiectasis. No effusion or pneumothorax. Central airways patent. MEDIASTINUM: No mediastinal, hilar or axillary adenopathy or free fluid collection. CORONARY ARTERY CALCIFICATION: Marked THYROID GLAND: Unremarkable to the extent seen. CARDIOVASCULAR STRUCTURES: Aortic and heart size normal. No pericardial effusion. CHEST WALL/AXILLA: Unremarkable. UPPER ABDOMEN: There is hepatic steatosis. OSSEOUS STRUCTURES: No suspicious focal findings. CT/CT lung screening IMPRESSION: No findings seen suspicious for malignancy. ASSESSMENT: 1. Lung-RADS Category 2: Benign appearance or behavior of nodules. N/A 2. Lung-RADS Category S: Negative. There are no clinically significant or potentially clinically significant findings not related to the lungs requiring urgent additional evaluation. RECOMMENDATION: Continued routine annual low-dose CT lung screening in 1 year is recommended. An order for CT CHEST LOW DOSE CANCER SCREENING ([id number]) can be placed. Electronically signed by: Candelario Hurd MD 05/24/2024 03:20 PM [facility] Dictated By: Candelario Hurd MD Signed By: <Electronically signed by Candelario Hurd MD in OV> 05/24/24 1520 DD/ 1018 TD/TT: 04/04/24 1042 [employer] Supervisor: HALINA REASON FOR REFERRAL Reason Skin lesions CSE Diagnosis 1 Skin lesions (L98.9) Referral Organization Bhavin Cheney FACP Referring Provider First Name Bhavin Referring Provider Valentin Name Madyson Referring Provider Speciality Internal edicine Referred Provider Candelario Sanchez Office Referred Provider Specialty Dermatology General Notes Roselyn Barrientos 11:07:46 AM EDT > referral faxed; specialist will call patient to schedule appointment; patient aware. Referral Priority Routine Reason Umbilical hernia Diagnosis 1 Umbilical hernia wit hout obstruction and without gangrene (K42.9) Referral Organization Bhavin Cheney FACP Referring Provider First Name Bhavin Referring Provider Valentin Name Madyson Referring Provider Speciality Internal edicine Referred Provider Ti Kaufman Referred Provider Specialty General Surg [place] General Notes Roselyn Barrientos 11:06:36 AM EDT > referral faxed; patient aware. Referral Priority Routine Referral Appointment Date 02/18/2024 Reason SOB Cardiac Risk Ass essment Diagnosis 1 Type 2 diabetes yassine itus without complication, without long-term current use of insulin (E11.9) Referral Organization Bhavin Cheney FACP Referring Provider First Name Bhavin Referring Provider Valentin Name Madyson Ref[facility] Referred Provider Bradley Glynn Referred Provider Specialty Cardiovascul ar Disease General Notes Roselyn Barrientos 11:05:52 AM EDT > referral faxed; specialist will call patient to schedule appointment; patient aware. Referral Priority Routine Reason Current cigarette sm oker Diagnosis 1 Nicotine dependence, unspecified, uncomplicated (F17.200) Referral Organization Bhavin Cheney FACP Referring Provider First Name Bhavin Referring Provider Valentin Name Madyson Ref[facility] Referred Provider [facility], Lung Cancer [facility] Referred Provider Specialty Thoracic Lynette po General Notes Roselyn Barrientos 02:31:58 PM EDT > referral faxed; specialist's office will call patient to schedule appointment; patient aware. Referral Priority Routine MEDICATIONS Medication SIG (Take, Route, Frequency, Duration) Notes Start Date End Date Status LORazepam 1 MG 1 tablet at bedtime as needed Orally Once a day for 30 days 05/07/2024 Active Lisinopril 10 MG 1 tablet Orally Once a day for 90 days Active metFORMIN HCl ER 750 MG 3 tablets with e vening meal Orally Once a day for 90 days 05/07/2024 Active Azithromycin 250 MG [address] day, then 1 tablet daily for 4 days Orally Once a day for 5 day(s) 06/17/2024 Active Vitamin D 1000 UNIT 1 capsule Orally Onc e a day 09/24/2015 Active Multivitamins 1 tablet Orally Once a day Active Moxifloxacin HCl 400 MG 1 tablet Orally Once a day for 7 days 06/30/2024 Active Atorvastatin Calcium 80 MG 1 tablet Oral ly Once a day Active IMMUNIZATIONS Vaccine Route Administration Date Status Comme nts Influenza IM Intramuscular 08/26/2013 Administered Influenza Quad IM Intramuscular 09/24/2015 Administered Td (adult) Unknown 08/04/2005 Administered Influenza Quad IM Intramuscular 05/09/2016 Administered Influenza Quad IM Intramuscular 04/28/2021 Administered COVID-19 Pfizer BioNTech Unknown 02/11/2021 Administere d COVID-19 Pfizer BioNTech Unknown 03/04/2021 Administere d Influenza Quad Unknown 03/27/2022 Administered PCV 20 Unknown 06/07/2022 Administered Influenza Quad IM Intramuscular 04/25/2023 Administered SOCIAL HISTORY Tobacco Use: Social History Observation [...] Never (0 point) Points 2 Interpretation Negative PROBLEMS Problem Type ICD Code Onset Dates Problem Status W/U Status Risk SNOMED Code Notes Problem Vitamin D deficiency (E55.9) Active confirmed 61178322 Problem Nicotine dependence, unspecified, uncomplicated (F17.200) Active confirmed 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 ([id number]) Problem Anxiety (F41.9) Active confirmed 030598 02 Problem Essential hypertensi on (I10) Active confirmed 47942692 Problem Non morbid obesity d ue to excess calories (E66.09) Active confirmed 789300438 Problem Renal lithiasis (N20.0) Active confirmed 78182779 Problem Type 2 diabetes mellitus without complication, without long-term current use of insulin (E11.9) Active confirmed 655804569 Problem Hypercholesterolemia (E78.00) Active confirmed 72342252 Problem Malignant neoplasm o f anterior wall of urinary bladder (C67.3) Active confirmed 114392935 VITAL SIGNS Blood pressure diastolic 66 mm Hg 05/07/2024 Height 67.25 in 05/07/2024 Blood pressure systolic 134 mm Hg 05/07/2024 Weight 217 lbs 05/07/2024 BMI 33.73 kg/m2 05/07/2024 Encounters Encounter Location Date Provider Diagnosis Bhavin Coughlin DO, [address] [phone] 08/15/2023 Bhavin Coughlin DO, [address] [id number] 01/30/2024 Bhavin Coughlin Type 2 diabetes yassine itus without complication, without long-term current use of insulin E11.9 ; Essential hypertension I10 ; Hypercholesterolemia E78.00 ; Anxiety F41.9 ; Umbilical hernia without obstruction and without gangrene K42.9 ; Skin lesions L98.9 ; Vitamin D deficiency E55.9 and Nicotine dependence, unspecified, uncomplicated F17.200 Bhavin Coughlin DO, [address] [id number] 05/07/2024 Bhavin Coughlin Type 2 diabetes yassine itus without complication, without long-term current use of insulin E11.9 ; Essential hypertension I10 ; Hypercholesterolemia E78.00 ; Vitamin D deficiency E55.9 and Anxiety F41.9 Bhavin Coughlin DO [address] [id number] 01/08/2024 Bhavin Coughlin Type 2 diabetes yassine itus without complication, without long-term current use of insulin E11.9 ; Essential hypertension I10 and Hypercholesterolemia E78.00 Bhavin Coughlin DO, [address] [id number] 02/22/2024 Bhavin Cohenman DO, [facility] [address], [place] [phone] 06/17/2024 Bhavin Coughlin Type 2 diabetes yassine itus without complication, without long-term current use of insulin E11.9 Bhavin Coughlin , [facility] [address], [place] [phone] 06/30/2024 Bhavin Coughlin ASSESSMENTS Encounter Date Diagnosis Assessment Notes Treatment Notes Treatment Clinical Notes 01/30/2024 Essential hypertensi on (ICD-10 - I10) 01/30/2024 Type 2 diabetes yassine itus without complication, without long-term current use of insulin (ICD-10 - E11.9) 05/07/2024 Essential hypertensi on (ICD-10 - I10) 05/07/2024 Type 2 diabetes yassine itus without complication, without long-term current use of insulin (ICD-10 - E11.9) 01/08/2024 Essential hypertensi on (ICD-10 - I10) 01/08/2024 Type 2 diabetes yassine itus without complication, without long-term current use of insulin (ICD-10 - E11.9) 06/17/2024 Type 2 diabetes yassine itus without complication, without long-term current use of insulin (ICD-10 - E11.9) 01/30/2024 Hypercholesterolemia (ICD-10 - E78.00) 05/07/2024 Hypercholesterolemia (ICD-10 - E78.00) 01/08/2024 Hypercholesterolemia (ICD-10 - E78.00) 01/30/2024 Anxiety (ICD-10 - F41.9) 05/07/2024 Vitamin D deficiency (ICD-10 - E55.9) 01/30/2024 Umbilical hernia wit hout obstruction and without gangrene (ICD-10 - K42.9) 05/07/2024 Anxiety (ICD-10 - F41.9) 01/30/2024 Skin lesions (ICD-10 - L98.9) 01/30/2024 Vitamin D deficiency (ICD-10 - E55.9) 01/30/2024 Nicotine dependence, unspecified, uncomplicated (ICD-10 - F17.200) Urged to stop smoking. Refer for low dose lung CT scanning PLAN OF TREATMENT No Information Insurance Providers Payer Name Payer Address Payer Phone Subscriber Number Group Number Insured Name Patient Relationship to Insured Coverage Start Date Coverage End Date [employer] [address] [place] [phone] [id number] Tawanda Junior Self - patient is the insured MEDICAL (GENERAL) HISTORY Medical History History ICD Code hypertension hypercholesterolemia anal warts genital warts Rodriguez's Disease Nicotine dependence, unspecified, uncomp licated bladder cancer Type 2 diabetes mellitus wit hout complication, without long-term current use of insulin E11.9 Surgical History Surgery Date(Month/Year) tonsillectomy wisdom teeth extraction vasectomy 1991 colonoscopy revealing 4 polyps; one was fairly large and sessile 2009 colonoscopy revealing tubular adenoma 20 11 colonoscopy revealing tubular adenoma umbilical hernia repair 03/2024
== END 2024-08-06 18:33 | disposition left against medical advice (07) ==
PROVIDERS: Emergency Provider Emergency Medicine; PCP Internal Medicine
DX: I10 Essential (primary) hypertension (principal); Z53.21 Procedure and treatment not carried out due to patient leaving prior to being seen by health care provider

== ENCOUNTER → 2024-08-19 08:47 | Outpatient (AMB) | payer OTHER, SELFPAY ==
[2024-08-19 09:05] VITALS: BP 110/60; PULSE 77
--- NOTE | 2024-08-19 09:05 | MHC.OFFVIS ---
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 Accompanied by: Self / Same As Patient Allergies amoxicillin [AMOXICILLIN] Allergy (Unknown, Verified 06/27/24 09:06) HIVES monosodium glutamate [MSG] Allergy (Unknown, Verified 06/27/24 09:06) NAUSEA Penicillins [PENICILLINS] Allergy (Unknown, Verified 06/27/24 09:06) HIVES Medication List - Last Reconciled 08/19/24 by Solo Arias MD atorvastatin 80 mg PO DAILY cholecalciferol (vitamin D3) 25 mcg PO DAILY clotrimazole-betamethasone 1-0.05 % 1 appl topical BID empagliflozin (Jardiance) 25 mg PO DAILY ibuprofen 600 mg PO Q6H PRN lisinopril 10 mg PO DAILY lorazepam 0.5 mg PO BEDTIME PRN metformin ER 1,000 mg (2 x 500 mg) PO BID 90 days multivitamin 1 tab PO DAILY tamsulosin (Flomax) 0.4 mg PO BEDTIME 30 days HPI Comments Details: Tawanda returns for follow-up. Recently seen in consultation regarding preoperative risk stratification for hernia surgery. That was uneventful. He has numerous cardiovascular risk factors including obesity, smoking, diabetes, hypertension. Within limits of his activity, no clear-cut cardiac symptoms. He has completed comprehensive cardiac workup including echocardiogram, stress test, coronary CTA. Overall, he feels fine. [facility] Medical History (Updated 06/27/24 @ 09:49 by Nathan Borja MD) Malignant neoplasm of urinary bladder (~2019) Hematuria HTN (hypertension) DMII (diabetes mellitus, type 2) [place] disease Nicotine dependence, cigarettes, uncomplicated History of condyloma acuminatum Surgical History History of umbilical hernia repair (03/11/24) History of transurethral resection of bladder tumor (TURBT) History of vasectomy History of tonsillectomy Family History Mother Thyroid disease Father Diabetes Heart failure Social History Alcohol intake: current Alcohol intake frequency: holidays/special occasions only Comment: medicated Patient Tobacco Use Status: Current everyday Tobacco user Tobacco use type: Cigarette Years Smoked: (onset 15yo, 3/4-1ppd x 49yrs, 35+PYH) Review of Systems Const Denies chills, Reports fatigue, Denies fever(s), Denies weight gain and Denies weight loss ENT Reports dizziness Card Reports chest pain, Reports irregular heart rhythm, Denies leg edema, Denies lightheadedness, Denies palpitations, Reports dyspnea, Denies dyspnea on exertion, Denies orthopnea and Denies other Resp Denies cough, Reports dyspnea and Denies dyspnea on exertion GI Denies hematochezia and Denies change in stool character Musc Denies abnormal gait, Denies muscle weakness, Denies numbness, Denies radiating pain into limb and Denies tingling Neuro Denies abnormal gait, Reports dizziness, Denies numbness and Denies tingling Endo Reports fatigue and Denies palpitations Physical Exam Vital Signs: Last Vital Signs Pulse 77 08/19/24 09:05 BP 110/60 08/19/24 09:05 BMI result Body Mass Index 30.0 Const General: comfortable and no acute distress Orientation/consciousness: patient oriented x3 HEENT Other: Unremarkable Head: Yes normal to inspection Neck Neck: Yes normal visual inspection Chest Chest palpation & inspection: normal inspection of the chest Resp Auscultation: clear to auscultation bilaterally Cardio Palpation: normal PMI Heart sounds: S1 normal heart sound present, S2 normal heart sound present, no gallops, no murmurs and no rubs GI Palpation (GI): Soft to palpation Back/Spine/Pelvis Other: unremarkable Skin General skin exam: no rashes or lesions noted Neuro General: patient oriented x3 Extrem General: Yes normal to inspection Psych Mental Status: mental status grossly normal Assessment & Plan Assessment & Plan (1) Atherosclerotic cardiovascular disease: Code(s): I25.10 - Atherosclerotic heart disease of [place] coronary artery without angina pectoris Category: Medical (2) HTN (hypertension): Code(s): I10 - Essential (primary) hypertension Category: Medical (3) DMII (diabetes mellitus, type 2): Code(s): E11.9 - Type 2 diabetes mellitus without complications Category: Medical (4) Nicotine dependence: Code(s): F17.200 - Nicotine dependence, unspecified, uncomplicated Category: Medical Plan Cardiac studies reviewed. In the echocardiogram, LVEF 55-60%. No wall motion abnormalities. Otherwise, unremarkable. In the exercise stress test, he exercised for 7 METS. Had hypertensive blood pressure response. In the echocardiographic component, posterior/inferolateral wall could not be evaluated well, but otherwise no obvious abnormalities. Coronary CTA-extensive coronary calcification; [id number] stenosis in multiple arteries. FFR is pending. Clinically, he does not have any angina. Hence mainly risk factor modification. Optimal treatment of diabetes, hypertension dyslipidemia. His sugars were more than 400 recently and that should be brought under control. We discussed about that. Otherwise, must stop smoking and we discussed about that as well. He can take low-dose aspirin. Follow-up in 1 year. In the interim, advised him to contact us immediately if any chest pain or other cardiac concerns or seek emergency help. He understands. Coding Level of Care Code Est Pt Level 4 (35455) Diagnoses Atherosclerotic cardiovascular disease I25.10 HTN (hypertension) I10 DMII (diabetes mellitus, type 2) E11.9 Nicotine dependence F17.200
== END | disposition home or self-care (01) ==
PROVIDERS: PCP Internal Medicine; Visit Provider Internal Medicine
DX: I25.10 Atherosclerotic heart disease of native coronary artery without angina pectoris (principal); I10 Essential (primary) hypertension; E11.9 Type 2 diabetes mellitus without complications; F17.200 Nicotine dependence, unspecified, uncomplicated
CPT/HCPCS: 99214

== ENCOUNTER 2024-09-08 09:26 | Outpatient (REF) | payer OTHER, SELFPAY ==
[2024-09-08 10:13] LABS: MANUAL DIFF FLAG NO
[2024-09-08 10:27] LABS: Basophils Percent Auto 0.4 % (0-2); Eosinophils Percent Auto 0.3 % (0-4); Hematocrit 48.1 % (42.0-52.0); Hemoglobin 15.2 g/dl (14.0-18.0); Imm Gran Abs Auto 0.08 X10*3/uL (0.00-0.03); Imm Gran Pct Auto 1.1 % (0.0-0.4); Lymphocytes Percent Auto 28.6 % (20-40); Mean Corpuscular HGB Conc 31.6 g/dl (31.0-36.0); Mean Corpuscular Hemoglobin 30.2 pg (27.0-33.0); Mean Corpuscular Volume 95.4 fL (80.0-98.0); Mean Platelet Volume 11.4 fL (9.4-12.4); Monocytes Absolute Auto 0.9 X10*3/uL (0.1-1.2); Monocytes Percent Auto 12.4 % (2-11); Neutrophils Percent Auto 57.2 % (45-73); Platelet Count 151 X10*3/uL (160-400); Red Blood Count 5.04 X10*6/uL (4.60-5.80); Red Cell Distribution Width 14.3 % (11.0-16.0); White Blood Count 7.1 X10*3/uL (4.8-10.8)
[2024-09-08 10:33] LABS: Estimated Average Glucose 240 mg/dL; Hemoglobin A1C 339.0695 umol/L; Total Hemoglobin (HGBA1C) 3931.9049 umol/L
[2024-09-08 11:24] LABS: PSA,Total (Free>4and<10) 0.22 ng/mL (0.00-4.00)
[2024-09-08 11:27] LABS: Alanine Aminotransferase 27 U/L (0-40); Albumin Level 4.7 g/dL (3.5-5.0); Alkaline Phosphatase 40 U/L (39-117); Anion Gap 13 (12-20); Aspartate Amino Transferase 25 U/L (5-37); Bilirubin Direct 0.2 mg/dL (0.0-0.5); Bilirubin Total 0.6 mg/dL (0.0-1.0); Blood Urea Nitrogen 11 mg/dL (9-16); C Reactive Protein < 0.10 mg/dL (< or = 0.50); Carbon Dioxide 24 mmol/L (22-29); Chloride 107 mmol/L (96-108); Cholesterol 98 mg/dL (<200); Estimated Glomerular Filt Rate > 60; Glucose Fasting 141 mg/dL (60-99); HDL Cholesterol 29 mg/dL (>40); LDL Cholesterol Calculated 49 mg/dL (<100); Magnesium 1.8 mg/dL (1.6-2.6); Potassium 4.3 mmol/L (3.3-5.1); Sodium 140 mmol/L (135-145); Total Protein 7.4 g/dL (6.5-8.0); Triglycerides 104 mg/dL (<150)
[2024-09-08 11:29] LABS: TSH reflex Free T4 0.71 uIU/mL (0.32-4.0); Vitamin D 25-OH Total 45.1 ng/mL (>30)
[2024-09-08 11:41] LABS: Folate 13.3 ng/mL (> or = 4.0); Vitamin B12 370 pg/mL (200-900)
[2024-09-15 15:18] LABS: Vitamin B1 13 nmol/L (8-30)
== END 2024-09-08 09:27 | disposition home or self-care (01) ==
LOC: HO.HMGCLDS 09:26
PROVIDERS: PCP Internal Medicine; Visit Provider Physician Assistant Medical
DX: Z00.00 Encounter for general adult medical examination without abnormal findings (principal); Z13.1 Encounter for screening for diabetes mellitus; Z13.220 Encounter for screening for lipoid disorders; Z12.5 Encounter for screening for malignant neoplasm of prostate; Z13.29 Encounter for screening for other suspected endocrine disorder; Z13.228 Encounter for screening for other metabolic disorders
CPT/HCPCS: 36415; 80053; 80061; 80076; 82248; 82306; 82607; 82746; 83036; 83735; 84153; 84425; 84443; 85025; 86140

== ENCOUNTER 2024-09-09 10:27 | Outpatient (AMB) | payer OTHER, SELFPAY ==
--- NOTE | 2024-09-09 10:29 | A.OFFPC_ITS ---
Vital Signs 09/09/24 10:33 Height 5 ft 6 in Weight 199 lb BMI 32.1 BP 126/74 Blood Pressure Location Rt brachial Pulse 81 Pulse Source Pulse Oximeter Temp 96.6 F L Pulse Oximetry (%) 98 Intake Visit Reasons: 4 month follow up Intake Note: right shoulder pain Allergies amoxicillin [AMOXICILLIN] Allergy (Unknown, Verified 09/09/24 10:31) HIVES monosodium glutamate [MSG] Allergy (Unknown, Verified 09/09/24 10:31) NAUSEA Penicillins [PENICILLINS] Allergy (Unknown, Verified 09/09/24 10:31) HIVES [facility] Medical History (Updated 09/08/24 @ 13:43 by Ruby Dye PA-C) Chelo disease Genital warts Anal warts Mild hypercholesterolemia Malignant neoplasm of urinary bladder (~2018) Hematuria HTN (hypertension) DMII (diabetes mellitus, type 2) Chelo disease Nicotine dependence, cigarettes, uncomplicated History of condyloma acuminatum Surgical History History of umbilical hernia repair (03/11/24) History of transurethral resection of bladder tumor (TURBT) History of vasectomy History of tonsillectomy Family History Mother Thyroid disease Father Diabetes Heart failure Social History Alcohol intake: current Alcohol intake frequency: holidays/special occasions only Comment: medicated Patient Tobacco Use Status: Current everyday Tobacco user Tobacco use type: Cigarette Years Smoked: (onset 15yo, 3/4-1ppd x 49yrs, 35+PYH) Physical exam (Primary Care) Vital Signs: Last Vital Signs Temp 96.6 F L 09/09/24 10:33 Pulse 81 09/09/24 10:33 BP 126/74 09/09/24 10:33 Pulse Ox 98 09/09/24 10:33 BMI result Body Mass Index 32.1 Tobacco/Smoking Status: Tobacco use Status Patient Tobacco Use Status Current everyday Tobacco 09/09/24 10:36 Tobacco use type Cigarette 09/09/24 10:36 Coding Level of Care Code Est Pt Level 4 (79125) Complex EM visit Add On G2211 Diagnoses Sprain of right shoulder S43.401A DMII (diabetes mellitus, type 2) E11.9 Assessment & Plan Assessment & Plan (1) Sprain of right shoulder: Code(s): S43.401A - Unspecified sprain of right shoulder joint, initial encounter Plan: Xray ordered and PT Scheduled. (2) DMII (diabetes mellitus, type 2): Code(s): E11.9 - Type 2 diabetes mellitus without complications Category: Medical Plan: A1c is elevated. Jardiance started last month. He prefers to adjust his diet before adding more medications. Plan History of Present Illness The patient is a 64-year-old male presenting with multiple medical complaints, including uncontrolled type 2 diabetes mellitus and musculoskeletal issues. The patient recently experienced a significantly elevated blood glucose level, resulting in an emergency room consultation. Currently on metformin, the patient has been additionally prescribed Jardiance for approximately one month, leading to decreased blood glucose levels but persistently elevated A1c. Despite no recent injuries, the patient reports experiencing pain in the right shoulder post-skiing incident, characterized by clicking sounds and diminished strength episodically impacting his arm function during specific movements. The chronic low back pain experienced by the patient arises from a previous injury, spreading towards the groin area, without limiting occupational duties. 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 - Tobacco use involving approximately one pack per day. - Ceased high intake of sweets in response to diabetic management, acknowledging a past preference for chocolates. Review of Systems - Musculoskeletal: Reports clicking and pain in the right shoulder radiating to the elbow and wrist, reduced strength, and chronic lower back pain radiating to the groin. - Endocrine: Reports elevated blood sugar levels, improved with current medication regimen. - Respiratory: Denies respiratory symptoms. - Neurologic: Denies neurologic symptoms. Physical Exam General: Appearance normal, both eyes and all related structures Nutritional Appearance: Well nourished Orientation/consciousness: Patient oriented x3 Limitations: Some limitations in shoulder movement with clicking and pain extending to the elbow and wrist Head: Normal to inspection Neck: Normal visual inspection Chest: Normal palpation of entire chest wall Respiratory: Normal respiratory effort Neurology: Patient oriented x3 Results - Labs: Hemoglobin A1c elevated at 10%. Plan The immediate management plan for type 2 diabetes includes continuation and monitoring of the current medication regimen with metformin and Jardiance. Lifestyle changes, particularly dietary adjustments and consistent glucose monitoring postprandially, are recommended. For musculoskeletal complaints, x- rays of the right shoulder will be performed to further identify any structural concerns, with a physical therapy program initiated to improve function and comfort. Anti-inflammatory therapy is advised pre-activity. Consideration for orthopedic evaluation will be given should the patient's symptoms not improve. Smoking cessation is advised to aid in control of diabetes and overall wellness. Patient was informed and verbally consented to the use of an ambient scribe for clinic note documentation during this visit. Discussion Notes I informed the patient about the importance of optimal glycemic control and collaborated on augmenting current efforts, such as medication compliance and dietary habits, with the newly introduced Jardiance. Discussion regarding the multifaceted approach to musculoskeletal concerns involved obtaining imaging, considering therapeutic exercises, and preventive pain management strategies. The patient was briefed about the role of x-ray findings in directing treatment and reassured regarding potential escalation of care involving orthopedics. Risks of continued nicotine use, particularly in the context of diabetes, were communicated with an aim to facilitate smoking cessation. Follow-up was confirmed for evaluations in one month to assess progress and anchorage of current medical interventions. Patient Instructions - Continue with metformin and Jardiance as prescribed. - Avoid sweets and follow a diabetes-friendly diet. - Monitor blood glucose levels regularly, especially after meals. - Schedule and attend an x-ray of the right shoulder. - Begin prescribed physical therapy for shoulder mobility. - Take preemptive anti-inflammatory medication before engaging in known aggravating activities. - Consider initiating smoking cessation strategies. - Follow up in one month for reevaluation of current conditions. Orders: Orders XR shoulder RT min 2V 09/09/24 S43.401A - Unspecified sprain of right shoulder joint, initial encounter PT Evaluation and Treatment 09/09/24 S43.401A - Unspecified sprain of right shoulder joint, initial encounter
[2024-09-09 10:33] VITALS: BP 126/74; PULSE 81; TEMP 35.9; O2SAT 98; BMI 32.1
== END 2024-09-09 11:04 | disposition home or self-care (01) ==
LOC: HO.HMCSH 10:27
PROVIDERS: PCP Internal Medicine; Visit Provider Internal Medicine
DX: S43.401A Unspecified sprain of right shoulder joint, initial encounter (principal); E11.9 Type 2 diabetes mellitus without complications

== ENCOUNTER 2024-11-13 09:09 | Outpatient (REF) | payer OTHER, SELFPAY ==
--- NOTE | ~2024-11-13 | XR_ITS ---
EXAMINATION: XR SHOULDER 2 OR MORE VIEWS RIGHT HISTORY: S43.401A - Unspecified sprain of right shoulder joint, initial encounter COMPARISON: There are no prior studies available for comparison. FINDINGS: Three views of the right shoulder are submitted. Osseous mineralization is normal. There is no fracture or dislocation. The glenohumeral joint is maintained. There is mild narrowing of the AC joint. The soft tissues are unremarkable. XR/XR shoulder RT min 2V IMPRESSION: Mild narrowing of the AC joint. Electronically signed by: Bhavin Yanez MD 11/13/2024 09:25 AM EDT
== END 2024-11-13 09:10 | disposition home or self-care (01) ==
LOC: HO.HMGCX 09:09
PROVIDERS: PCP Internal Medicine; Visit Provider Internal Medicine
DX: S43.401A Unspecified sprain of right shoulder joint, initial encounter (principal)
CPT/HCPCS: 73030

== ENCOUNTER → 2024-11-13 09:12 | Outpatient (BNV) | payer OTHER, SELFPAY | PROVIDERS: PCP Internal Medicine; Visit Provider Radiology Diagnostic Radiology | DX: S43.401A Unspecified sprain of right shoulder joint, initial encounter (principal) | CPT/HCPCS: 73030 ==

== ENCOUNTER 2024-11-14 09:44 | Outpatient (AMB) | payer OTHER, SELFPAY ==
[2024-11-14 09:48] VITALS: BP 138/76; PULSE 66; RESP 16; TEMP 36.4; O2SAT 97; BMI 33.4
--- NOTE | 2024-11-14 09:48 | MHC.PC.OV ---
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 Required: No Accompanied by: Self / Same As Patient Allergies amoxicillin [AMOXICILLIN] Allergy (Unknown, Verified 11/14/24 10:29) HIVES monosodium glutamate [MSG] Allergy (Unknown, Verified 11/14/24 10:29) NAUSEA Penicillins [PENICILLINS] Allergy (Unknown, Verified 11/14/24 10:29) HIVES Medication List - Last Reconciled 11/14/24 by Ruby Dye PA-C aspirin 81 mg PO DAILY atorvastatin 80 mg PO DAILY cholecalciferol (vitamin D3) 25 mcg PO DAILY clotrimazole-betamethasone 1-0.05 % 1 appl topical BID lisinopril 10 mg PO DAILY lorazepam 0.5 mg PO BEDTIME PRN metformin ER 1,000 mg (2 x 500 mg) PO BID 90 days multivitamin 1 tab PO DAILY Tobacco use date assessed: 11/14/24 Fall risk assessment: No Falls in past year Last assessed Fall Risk: 11/14/24 Dental Screening Dental Screen Date: 11/14/24 Did you have a dental visit in the last 12 months?: Yes Did you have a dental problem in the last 6 months where you did not have access to dental care?: No Was dental information given to patient?: Patient has dentist HPI 2 month follow up HPI Details The patient is a 64-year-old male presenting with Type 2 Diabetes Mellitus for a two-month follow-up. He had been prescribed metformin 1000 mg and Jardiance due to an A1c of 10.0 documented on September 08, 2024. The patient experienced balanitis as a side effect from Jardiance, prompting discontinuation approximately 1-1/2 weeks ago, which resolved the condition. His dietary indiscretions included significant sweet consumption, influencing high glucose levels. Since stopping sweets and altering medications, the patient reports improved glucose control. This visit aims to appraise management efficacy and A1c levels. Social History - Dietary intake: Reported regular consumption of sweets, including cookies and chocolate bars, which he has since reduced. - Exercise was not explicitly discussed. - Substance use: Past mentions of smoking, ongoing cessation not explicitly detailed. - Employment, housing, education, family status, family planning: Not discussed in detail. - Financial concerns were briefly mentioned, indicating potential stress related to these issues. COUNTS INCLUDE 234 BEDS AT THE [facility] Medical History (Updated 11/14/24 @ 10:31 by Ruby Dye PA-C) Type 2 diabetes mellitus with hemoglobin A1c goal of less than 7.0% Chelo disease Genital warts Anal warts Mild hypercholesterolemia Malignant neoplasm of urinary bladder (~2018) Hematuria HTN (hypertension) DMII (diabetes mellitus, type 2) Chelo disease Nicotine dependence, cigarettes, uncomplicated History of condyloma acuminatum Surgical History History of colonoscopy (~09/06/20) History of umbilical hernia repair (03/11/24) History of transurethral resection of bladder tumor (TURBT) History of vasectomy History of tonsillectomy Family History Mother Thyroid disease Father Diabetes Heart failure Social History (Updated 11/14/24 @ 10:04 by CANDIDO Shah) Housing: House Alcohol intake: current Alcohol intake frequency: a few times a month Patient Tobacco Use Status: Current everyday Tobacco user Tobacco use type: Cigarette Cigarette Packs Per Day: 1 service: No Current occupational status: employed Cognitive needs: No Hearing needs: No Vision needs: Yes (reading glasses) Questionnaire PHQ-9 Over the last 2 weeks, how often have you been bothered by any of the following problems? 1. Little interest or pleasure in doing things: not at all 2. Feeling down, depressed, or hopeless: not at all 3. Trouble falling or staying asleep, or sleeping too much: not at all 4. Feeling tired or having little energy: not at all 5. Poor appetite or overeating: not at all 6. Feeling bad about yourself - or that you are a failure or have let yourself or your family down: not at all 7. Trouble concentrating on things, such as reading the newspaper or watching television: not at all 8. Moving or speaking so slowly that other people could have noticed. Or the opposite - being so fidgety or restless that you have been moving around a lot more than usual: not at all 9. Thoughts that you would be better off or of hurting yourself in some way: not at all Total score: 0 Depression Screening Interpretation: Negative Depression Screening Done: Yes 84692 - PHQ-9 Billing: Yes Source: Developed by Drs. Bhavin Diaz, Radha Duenas, Jarrett Liriano and colleagues, with an educational maureen from [employer]. Thrive Questionnaire Date Thrive assessed: 11/14/24 I am a: Patient What is your living situation today?: I have a steady place to live Within the past 12 months, did the food you bought not last and you didn't have the money to get more?: Never true Within the past 12 months, did you worry whether your food would run out before you got money to buy more?: Never true Do you have trouble paying for medicines?: No Do you have trouble getting transportation to medical appointments?: No Do you have trouble paying your heating and electricity bill?: No Do you have trouble taking care of your child, family member or friend?: No Do you have trouble with day-to-day activities such as bathing, preparing meals, shopping, managing finances, etc.?: No Are you currently unemployed and looking for a job?: No Are you interested in more education?: No Please select the resources that you would like help with: None THRIVE Score: 0 AUDIT C Alcohol Use Questionnaire (AUDIT-C) 1. How often do you have a drink containing alcohol?: 2-4 times a month 2. How many drinks containing alcohol do you have on a typical day when you are drinking?: 1 or 2 3. How often do you have six or more drinks on one occasion?: Never Total Score: 2 Score Reviewed/Action Taken: No HANNA-7 AMB Questionnaire HANNA-7 Date HANNA - 7 assessed: 11/14/24 Feeling nervous, anxious, or on edge: 0 = Not at all Not being able to stop or control worryin = Not at all Worrying too much about different things: 0 = Not at all Trouble relaxin = Not at all Being so restless that it is hard to sit still: 0 = Not at all Becoming easily annoyed or irritable: 0 = Not at all Feeling afraid as if something awful might happen: 0 = Not at all Total HANNA-7 score (0-4 normal; 5-9 mild; 10-14 moderate; 15-21 severe): 0 Source: Developed by Drs. Bhavin Diaz, Radha Duenas, Jarrett Liriano and colleagues, with an educational maureen from [employer]. HANNA-7 Assessment Billing HANNA-7 Assessment Tool: HANNA-7 Assessment 62593 Review of Systems Const Details: - Endocrine/Metabolic: Reports inconsistent home glucometer readings; Denies additional symptoms. - Dermatologic: Reports resolved balanitis upon medication cessation. - Gastrointestinal: Denies recent symptoms post-resolution of medication-induced condition. Physical exam (Primary Care) Vital Signs: Last Vital Signs Temp 97.5 F 11/14/24 09:48 Pulse 66 11/14/24 09:48 Resp 16 11/14/24 09:48 BP 138/76 11/14/24 09:48 Pulse Ox 97 11/14/24 09:48 Oxygen Delivery Method Room Air 11/14/24 09:48 Care Plan Goal for BP management: <130/90 at Goal BMI result Body Mass Index 33.4 BMI Assessment/Plan discussion: High BMI High, discussed plan: lifestyle, weight reduction, dietary, physical activity and alcohol moderation Tobacco/Smoking Status: Tobacco use Status Tobacco use date assessed 11/14/24 11/14/24 09:55 Patient Tobacco Use Status Current everyday Tobacco 11/14/24 10:04 Tobacco use type Cigarette 11/14/24 10:04 PHQ-9: PHQ-9 Score PHQ-9: Total score 0 11/14/24 10:28 Depression Screening Interpretation: Negative Thrive Assessment: Date of Thrive Assessment Date Thrive assessed 11/14/24 11/14/24 09:55 Const Other: Appearance: Alert. Oriented X3. No acute distress. Head: Normal external exam. Normocephalic. Atraumatic. Eyes: Pupils are equal, round, and reactive to light. Extraocular movements intact. Conjunctiva and sclera normal. Eyelids normal. Throat: Pharynx normal. Uvula midline. Moist mucous membranes. Neck: Normal inspection. Neck supple. Full range of motion. Cardiovascular: Normal heart rate and rhythm. Respiratory: No respiratory distress. Painless inspiration. Back: Full range of motion noted. Skin: Skin warm and dry. Normal skin color. Normal skin turgor. No rashes/lesions/lacerations noted. Extremities: Extremities exhibit normal range of motion. Results AMB Hemoglobin A1c AMB Hemoglobin A1c 6.9 % Last Edit by CANDIDO Shah on 11/14/24 10:34 Results Reviewed Results Reviewed: - Labs: Hemoglobin A1c previously 10.0 (September 08, 2024); current noted 6.9 done in the office today. - Cholesterol: LDL 49 mg/dL, total cholesterol 200 mg/dL. Coding Level of Care Code Est Pt Level 4 (06191) Complex EM visit Add On G2211 Diagnoses Type 2 diabetes mellitus with hemoglobin A1c goal of less than 7.0% E11.9 Anal warts A63.0 Additional Codes PHQ-9 - 43459 - PHQ-9 Billing: Yes ([id number]) HANNA-7 Assessment Billing - HANNA-7 Assessment Tool: HANNA-7 Assessment 43647 ([id number]) Assessment & Plan Assessment & Plan (1) Type 2 diabetes mellitus with hemoglobin A1c goal of less than 7.0%: Code(s): E11.9 - Type 2 diabetes mellitus without complications Category: Medical Plan: For management of Type 2 Diabetes Mellitus, I will continue the patient's metformin 1000 mg therapy, maintaining these levels due to improved A1c measures. Today the patient's A1c level was 6.9. Lifestyle changes in sweet consumption are reinforced, alongside appropriate glucose monitoring with follow-up in three months. Condition is chronic and stable continue to monitor. (2) Anal warts: Code(s): A63.0 - Anogenital (venereal) warts Category: Medical Plan: Referral to general surgery was initiated for evaluation and removal of anal warts, with the expectation of an outpatient approach comparable to prior treatments. Condition is chronic and stable will continue to monitor. Plan Plan Patient was informed and verbally consented to the use of an ambient scribe for clinic note documentation during this visit. 1. Type 2 Diabetes Mellitus For management of Type 2 Diabetes Mellitus, I will continue the patient's metformin 1000 mg therapy, maintaining these levels due to improved A1c measures. Lifestyle changes in sweet consumption are reinforced, alongside appropriate glucose monitoring with follow-up in three months. 2. Balanitis Since the patient's balanitis resolved post-Jardiance cessation, we will monitor for recurrence. Clotrimazole remains on-hand for potential flare-ups reliant on patient reports. 3. Hyperlipidemia Dietary adjustments promoting good cholesterol were highlighted, with encouraging outcomes as indicated by favorable LDL measures. Continued adherence to dietary recommendations remains important. 4. Anal Warts Referral to general surgery was initiated for evaluation and removal of anal warts, with the expectation of an outpatient approach comparable to prior treatments. In discussions with the patient, I reviewed the existing management plan for Type 2 Diabetes Mellitus, emphasizing dietary control and appropriate glucose monitoring practices. The importance of balancing cholesterol levels with healthier food choices was reiterated. I consented with the patient on suspending Jardiance due to balanitis, which has subsequently improved. Regarding the anal warts, we considered previous successful outpatient interventions leading to a decision to proceed with a surgical referral. Follow-up care will occur in three months, contingent upon maintenance of current diabetes control measures or changes in patient health status. Orders: Orders AMB Hemoglobin A1c Today E11.9 - Type 2 diabetes mellitus without complications Referrals General Surgery Referral A63.0 - Anogenital (venereal) warts Patient Instructions: - Continue taking metformin 1000 mg as prescribed. - Avoid sweets and maintain a healthy diet with fruits and vegetables. - Monitor blood sugar regularly and follow proper technique. - Call if balanitis symptoms return or worsen. - Await guidance for surgical referral for anal warts. - Return for follow-up in three months for diabetes evaluation. - Report any changes in health or new symptoms promptly.
== END 2024-11-14 10:30 | disposition home or self-care (01) ==
LOC: HO.HMCSH 09:44
PROVIDERS: PCP Internal Medicine; Visit Provider Physician Assistant Medical
DX: E11.9 Type 2 diabetes mellitus without complications (principal); A63.0 Anogenital (venereal) warts

== ENCOUNTER → 2024-11-14 09:44 | Outpatient (BNVA) | payer OTHER, SELFPAY | PROVIDERS: PCP Internal Medicine; Visit Provider Physician Assistant Medical | DX: E11.9 Type 2 diabetes mellitus without complications (principal); N48.1 Balanitis; E78.5 Hyperlipidemia, unspecified; A63.0 Anogenital (venereal) warts; Z79.84 Long term (current) use of oral hypoglycemic drugs | CPT/HCPCS: 83036; 96127 ==

== ENCOUNTER 2024-11-20 09:34 | Outpatient (AMB) | payer OTHER, SELFPAY ==
--- NOTE | 2024-11-20 09:37 | A.OFFVIS_ITS ---
Vital Signs 11/20/24 09:39 Height 5 ft 6 in Weight 205 lb 0.478 oz BMI 33.1 BP 110/64 Blood Pressure Location Lt brachial Position Sitting Pulse 78 Pulse Source Pulse Oximeter Intake Visit Reasons: 3m follow up Intake Note: 3 mth f/up Lifestyle Consultant Required: No Accompanied by: Self / Same As Patient Allergies amoxicillin [AMOXICILLIN] Allergy (Unknown, Verified 11/14/24 10:29) HIVES monosodium glutamate [MSG] Allergy (Unknown, Verified 11/14/24 10:29) NAUSEA Penicillins [PENICILLINS] Allergy (Unknown, Verified 11/14/24 10:29) HIVES Medication List - Last Reconciled 11/20/24 by Solo Arias MD aspirin 81 mg PO DAILY atorvastatin 80 mg PO DAILY cholecalciferol (vitamin D3) 25 mcg PO DAILY clotrimazole-betamethasone 1-0.05 % 1 appl topical BID lisinopril 10 mg PO DAILY lorazepam 0.5 mg PO BEDTIME PRN metformin ER 1,000 mg (2 x 500 mg) PO BID 90 days multivitamin 1 tab PO DAILY HPI Comments Details: Tawanda returns for follow-up. Recently seen in consultation regarding preoperative risk stratification for hernia surgery. That was uneventful. He has numerous cardiovascular risk factors including obesity, smoking, diabetes, hypertension, dyslipidemia. He denies any exertional angina. With activities like going up stairs extra, he may feel shortness of breath. He has completed comprehensive cardiac workup including echocardiogram, stress test, coronary CTA. Since last seen, no new concerns. [facility] Medical History (Updated 11/14/24 @ 10:31 by Ruby Dye PA-C) Type 2 diabetes mellitus with hemoglobin A1c goal of less than 7.0% [place] disease Genital warts Anal warts Mild hypercholesterolemia Malignant neoplasm of urinary bladder (~2019) Hematuria HTN (hypertension) DMII (diabetes mellitus, type 2) [place]o disease Nicotine dependence, cigarettes, uncomplicated History of condyloma acuminatum Surgical History History of colonoscopy (~09/06/20) History of umbilical hernia repair (03/11/24) History of transurethral resection of bladder tumor (TURBT) History of vasectomy History of tonsillectomy Family History Mother Thyroid disease Father Diabetes Heart failure Social History Housing: House Alcohol intake: current Alcohol intake frequency: a few times a month Patient Tobacco Use Status: Current everyday Tobacco user Tobacco use type: Cigarette Cigarette Packs Per Day: 1 service: No Current occupational status: employed Cognitive needs: No Hearing needs: No Vision needs: Yes (reading glasses) Review of Systems Const Denies chills, Denies fatigue, Denies fever(s), Denies frequent falls, Denies weakness, Denies weight gain and Denies weight loss ENT Denies dizziness Card Denies chest pain, Denies leg edema, Denies lightheadedness, Denies palpitations, Denies dyspnea and Denies dyspnea on exertion Resp Denies cough, Denies dyspnea and Denies dyspnea on exertion GI Denies hematochezia Musc Denies abnormal gait, Denies muscle weakness, Denies numbness, Denies radiating pain into limb and Denies tingling Neuro Denies abnormal gait, Denies dizziness, Denies frequent falls, Denies numbness, Denies tingling and Denies weakness Endo Denies fatigue and Denies palpitations Physical Exam Vital Signs: Last Vital Signs Pulse 78 11/20/24 09:39 BP 110/64 11/20/24 09:39 BMI result Body Mass Index 33.1 Const General: comfortable and no acute distress Orientation/consciousness: patient oriented x3 HEENT Other: Unremarkable Head: Yes normal to inspection Neck Neck: Yes normal visual inspection Chest Chest palpation & inspection: normal inspection of the chest Resp Auscultation: clear to auscultation bilaterally Cardio Palpation: normal PMI Heart sounds: S1 normal heart sound present, S2 normal heart sound present, no gallops, no murmurs and no rubs GI Palpation (GI): Soft to palpation Back/Spine/Pelvis Other: unremarkable Skin General skin exam: no rashes or lesions noted Neuro General: patient oriented x3 Extrem General: Yes normal to inspection Psych Mental Status: mental status grossly normal Assessment & Plan Assessment & Plan (1) Atherosclerotic cardiovascular disease: Code(s): I25.10 - Atherosclerotic heart disease of [place] coronary artery without angina pectoris Category: Medical (2) HTN (hypertension): Code(s): I10 - Essential (primary) hypertension Category: Medical (3) DMII (diabetes mellitus, type 2): Code(s): E11.9 - Type 2 diabetes mellitus without complications Category: Medical Plan Cardiac studies reviewed. In the echocardiogram, LVEF 55-60%. No wall motion abnormalities. Otherwise, unremarkable. In the exercise stress test, he exercised for 7 METS. Had hypertensive blood pressure response. In the echocardiographic component, posterior/inferolateral wall could not be evaluated well, but otherwise no obvious abnormalities. Coronary CTA-extensive coronary calcification; uarn-[id number]-[id number] stenosis in multiple arteries. FFR functionally significant mid LAD/distal part of mid RCA. There was also widespread disease in addition to the above focal stenosis and recommendation was to pursue cardiac catheterization. We discussed about the test results and further planning. Discussed about diagnostic catheterization, pros and cons and he understands and agrees. We can schedule that in the near future. Otherwise, aggressive risk factor modification. Must stop smoking. Weight management. Aggressive control of diabetes, hypertension dyslipidemia. Hemoglobin A1c was 10%. Seems much better now. If any concerning symptoms, to contact us immediately. Discussion Notes I explained the CT scan findings indicating significant coronary artery blockages, recommending an angiogram for detailed assessment. Benefits include clarity on blockage severity; risks include procedural complications. We discussed typical risks of dye reactions, but these have been previously tolerated. I clarified that the procedure is non-urgent as the patient is asymptomatic regarding angina but will provide essential information for potential intervention, such as stent placement. The patient was amenable to this plan, understanding the need for continued control of risk factors, particularly smoking cessation and monitoring blood sugar levels. Monitoring will continue implicitly until the procedure date is finalized. I discussed the implications of findings and encouraged lifestyle modifications. Patient was informed and verbally consented to the use of an ambient scribe for clinic note documentation during this visit. Orders: Orders Prothrombin Time INR Today I25.10 - Atherosclerotic heart disease of [place] coronary artery without angina pectoris Cardiac Cath LT Diagnostic Today I25.10 - Atherosclerotic heart disease of [place] coronary artery without angina pectoris Complete Blood Count no Diff Today I25.10 - Atherosclerotic heart disease of [place] at[place] coronary artery without angina pectoris Basic Metabolic Panel Today I25.10 - Atherosclerotic heart disease of [place] coronary artery without angina pectoris Patient Instructions: - Stop smoking completely to lower heart risk. - Keep blood sugar under strict control. - Moderate physical activity like gardening is acceptable. - Prepare for an angiogram in the coming weeks. - Follow a heart-healthy diet to manage cholesterol. - Report any new chest pain or shortness of breath immediately. Coding Level of Care Code Est Pt Level 4 (79448) Complex EM visit Add On G2211 Diagnoses Atherosclerotic cardiovascular disease I25.10 HTN (hypertension) I10 DMII (diabetes mellitus, type 2) E11.9
[2024-11-20 09:39] VITALS: BP 110/64; PULSE 78; BMI 33.1
== END 2024-11-20 09:58 | disposition home or self-care (01) ==
LOC: HO.HCS 09:35
PROVIDERS: PCP Internal Medicine; Visit Provider Internal Medicine
DX: I25.10 Atherosclerotic heart disease of native coronary artery without angina pectoris (principal); I10 Essential (primary) hypertension; E11.9 Type 2 diabetes mellitus without complications
CPT/HCPCS: 99214; G2211

== ENCOUNTER → 2024-11-20 09:34 | Outpatient (BNVA) | payer OTHER, SELFPAY | PROVIDERS: PCP Internal Medicine; Visit Provider Internal Medicine ==

== ENCOUNTER 2024-12-05 09:50 | Outpatient (REF) | payer OTHER, SELFPAY ==
[2024-12-05 13:50] LABS: Hematocrit 46.3 % (42.0-52.0); Hemoglobin 15.2 g/dl (14.0-18.0); Mean Corpuscular HGB Conc 32.8 g/dl (31.0-36.0); Mean Corpuscular Hemoglobin 30.2 pg (27.0-33.0); Mean Platelet Volume 12.2 fL (9.4-12.4); Platelet Count 150 X10*3/uL (160-400); Red Blood Count 5.03 X10*6/uL (4.60-5.80); Red Cell Distribution Width 14.6 % (11.0-16.0); White Blood Count 6.5 X10*3/uL (4.8-10.8)
[2024-12-05 14:02] LABS: INTERNATIONAL NORM RATIO 0.9 (0.9-1.1); Prothrombin Time 10.5 SEC (10.9-12.4)
[2024-12-05 14:09] LABS: Anion Gap 11 (12-20); Blood Urea Nitrogen 12 mg/dL (9-16); Calcium 9.7 mg/dL (8.4-10.2); Carbon Dioxide 25 mmol/L (22-29); Chloride 108 mmol/L (96-108); Estimated Glomerular Filt Rate > 60; Glucose Random 136 mg/dL (60-115); Potassium 4.7 mmol/L (3.3-5.1); Sodium 139 mmol/L (135-145)
== END 2024-12-05 09:51 | disposition home or self-care (01) ==
LOC: HO.HMGCLDS 09:50
PROVIDERS: PCP Internal Medicine; Visit Provider Internal Medicine
DX: I25.10 Atherosclerotic heart disease of native coronary artery without angina pectoris (principal)
CPT/HCPCS: 36415; 80048; 85027; 85610

== ENCOUNTER → 2024-12-16 23:59 | Outpatient (BNV) | payer OTHER, SELFPAY | PROVIDERS: PCP Internal Medicine; Visit Provider Internal Medicine Cardiovascular Disease | DX: I20.89 Other forms of angina pectoris (principal) | CPT/HCPCS: 93458; 93571; 93572; 99152 ==

== ENCOUNTER 2025-01-22 13:29 | Outpatient (REF) | payer OTHER, SELFPAY ==
--- NOTE | ~2025-01-22 | US_ITS ---
CLINICAL HISTORY: I25.10 - Atherosclerotic heart disease of [place] coronary artery without... US bilateral carotid duplex Comparison: None Provided Findings: Waveforms demonstrate normal pattern. Peak systolic velocities: Right CCA: 90 cm/s Right ICA: 87 cm/s ICA/CCA ratio: 0.9 Right ECA: Unremarkable Right vertebral artery flow antegrade. No significant plaque noted. Left CCA: 113 cm/s Left ICA: 98 cm/s ICA/CCA ratio: 0.9 Left ECA: Unremarkable Left vertebral artery flow antegrade. No significant plaque noted. Impression: No significant velocity altering stenosis This document has been electronically signed by: Edil Lehman MD on 01/22/2025 21:36:10
== END 2025-01-22 13:30 | disposition home or self-care (01) ==
LOC: HO.HMGCX 13:29
PROVIDERS: PCP Internal Medicine
DX: I25.10 Atherosclerotic heart disease of native coronary artery without angina pectoris (principal); R09.89 Other specified symptoms and signs involving the circulatory and respiratory systems
CPT/HCPCS: 93880

== ENCOUNTER → 2025-01-22 13:31 | Outpatient (BNV) | payer OTHER, SELFPAY | PROVIDERS: PCP Internal Medicine; Visit Provider Radiology Diagnostic Radiology | DX: I25.10 Atherosclerotic heart disease of native coronary artery without angina pectoris (principal) | CPT/HCPCS: 93880 ==

== ENCOUNTER 2025-02-13 08:57 | Outpatient (AMB) | payer OTHER, SELFPAY ==
--- NOTE | 2025-02-13 08:59 | A.OFFPC_ITS ---
Vital Signs 02/13/25 09:00 Height 5 ft 6 in Weight 198 lb BMI 32.0 BP 129/56 L Blood Pressure Location Rt brachial Position Sitting Respiration 16 Pulse 94 Pulse Source Pulse Oximeter Temp 98.2 F Temp Source Temporal Artery Scan Pulse Oximetry (%) 96 Oxygen Delivery Method Room Air Intake Visit Reasons: 3 month f/u DM II Intake Note: Visit Reason: TCM Intake Note: Patient is here for hospital discharge follow up. 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 Accompanied by: Spouse Allergies amoxicillin (AMOXICILLIN) Allergy (Unknown, Verified 02/13/25 09:46) HIVES monosodium glutamate (MSG) Allergy (Unknown, Verified 02/13/25 09:46) NAUSEA Penicillins (PENICILLINS) Allergy (Unknown, Verified 02/13/25 09:46) HIVES Medication List - Last Reconciled 02/13/25 by Ruby Dye PA-C acetaminophen 500 mg PO Q6H PRN albuterol sulfate 90 mcg/actuation 2 puffs inhalation Q4H PRN amiodarone 200 mg PO BID aspirin 81 mg PO DAILY atorvastatin 80 mg PO DAILY cholecalciferol (vitamin D3) 25 mcg PO DAILY clotrimazole-betamethasone 1-0.05 % 1 appl topical BID cyclobenzaprine 10 mg PO Q8H furosemide 40 mg PO DAILY lisinopril 10 mg PO DAILY lorazepam 0.5 mg PO BEDTIME PRN metformin 1,000 mg PO BID metoprolol tartrate 50 mg PO BID multivitamin 1 tab PO DAILY oxycodone 2.5 mg (1/2 x 5 mg) PO Q6H PRN tamsulosin (Flomax) 0.4 mg PO BEDTIME 30 days Tobacco use date assessed: 02/13/25 Dental Screening Dental Screen Date: 11/14/24 HPI HPI Comments History of Present Illness Details Patient presents to the office for a TCM visit. Date of admission: 01/30/2025 Date of discharge:02/09/2025 This is a Follow-up from admission at [facility] HPI/hospital course/discharge summary: The patient is a 65-year-old male presenting with a three-month follow-up and hospital discharge follow-up after coronary artery bypass grafting. The patient underwent coronary artery bypass grafting at [facility] due to coronary artery disease confirmed by a coronary CT and cardiac catheterization. The procedure involved a left internal mammary artery to the left anterior descending radial artery to the right posterior descending artery, along with an endoscopy and epiaortic ultrasound. Postoperatively, the patient reports persistent pain in the neck, upper back, and shoulders, which has not been alleviated by oxycodone or Tylenol. The pain is described as severe, with muscle tightness noted in the neck area. The patient has a history of diabetes mellitus, with a recent A1c of 6.6, indicating good control. He was previously on metformin, and there was a discussion about insulin, which was decided against due to the current A1c leve l. The patient also has a history of hypertension, with a current blood pressure reading of 129/56 mmHg. He is on metoprolol for blood pressure management. Additionally, the patient has a history of prostate enlargement and is on Flomax, with plans to follow up with urology. Discharged to/Current Location: Home Lives with: , extended family Diagnosis: Coronary artery disease Procedures performed: Coronary artery bypass grafting x2, left internal mammary artery to the left anterior descending, radial artery to right posterior descending artery; endoscope radial artery harvesting; epic aortic ultrasound of ascending aorta and aortic arch New medications: tylenol, albuterol, amiodarone 200 mg BID, Lasix 40 daily, Glargine 15 units daily, Metoprolol 25 mg BID, oxycodone 1/2 every 6 hours, tamsulosin 0.4 1 cap daily Discontinued medications: Patient will not be starting the glargine due to his A1c is 6.6 today Change medications/dosing: Patient was already on metformin 1000 mg b.i.d. Pending labs: None at this time Pending diagnostic test: None at this time Any Follow-up Labs required? None at this time Any Follow-up Diagnostic test required? None at this time How are you feeling? Neck back muscle pain and tylenol and oxycodone not helping will try muscle relaxer Are you in any pain or discomfort? Neck back muscle pain will prescribe Flexeril Do you have any questions about your condition or discharge instructions? no Were you able to get your medications filled? yes other than Insulin which we are not going to start due to a1c is 6.6 today. Do you have any questions about your medications? not at this time Any referrals required? Dr. 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 Pepper Feb 23 Were you able to schedule your follow-up appointment? already scheduled If home health was ordered, have they contact you? is caring for patient Any outpatient services, if so, are you scheduled? VNA and cardic rehab Mar 03 at [facility] Are there any additional resources like transportation you might need during recovery? no - VNA? already in place - PHYSICAL DIRECTOR? no - Meals on wheels? no Educational need/resources: no What support system do you have? 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 [employer], Son Jordi PETERSON Medical History (Updated 02/13/25 @ 11:10 by Ruby Dye PA-C) Postoperative pain Muscle pain, cervical Enlarged prostate Coronary artery disease Hospital discharge follow-up Type 2 diabetes mellitus with hemoglobin A1c goal of less than 7.0% [place] disease Genital warts Anal warts Mild hypercholesterolemia Malignant neoplasm of urinary bladder (~2018) Hematuria HTN (hypertension) DMII (diabetes mellitus, type 2) [place]o disease Nicotine dependence, cigarettes, uncomplicated History of condyloma acuminatum Surgical History History of colonoscopy (~09/06/20) History of umbilical hernia repair (03/11/24) History of transurethral resection of bladder tumor (TURBT) History of vasectomy History of tonsillectomy Family History Mother Thyroid disease Father Diabetes Heart failure Social History Housing: House Alcohol intake: current Alcohol intake frequency: a few times a month Patient Tobacco Use Status: Current everyday Tobacco user Tobacco use type: Cigarette Cigarette Packs Per Day: 1 service: No Current occupational status: employed Cognitive needs: No Hearing needs: No Vision needs: Yes (reading glasses) Questionnaire PHQ-9 Over the last 2 weeks, how often have you been bothered by any of the following problems? 1. Little interest or pleasure in doing things: not at all 2. Feeling down, depressed, or hopeless: not at all 3. Trouble falling or staying asleep, or sleeping too much: not at all 4. Feeling tired or having little energy: not at all 5. Poor appetite or overeating: not at all 6. Feeling bad about yourself - or that you are a failure or have let yourself or your family down: not at all 7. Trouble concentrating on things, such as reading the newspaper or watching television: not at all 8. Moving or speaking so slowly that other people could have noticed. Or the opposite - being so fidgety or restless that you have been moving around a lot more than usual: not at all 9. Thoughts that you would be better off or of hurting yourself in some way: not at all Total score: 0 Depression Screening Interpretation: Negative Depression Screening Done: Yes 11032 - PHQ-9 Billing: Yes Source: Developed by Drs. Bhavin Diaz, Radha Duenas, Jarrett Liriano and colleagues, with an educational maureen from [employer]. Thrive Questionnaire Date Thrive assessed: 11/14/24 I am a: Patient What is your living situation today?: I have a steady place to live Within the past 12 months, did the food you bought not last and you didn't have the money to get more?: Never true Within the past 12 months, did you worry whether your food would run out before you got money to buy more?: Never true Do you have trouble paying for medicines?: No Do you have trouble getting transportation to medical appointments?: No Do you have trouble paying your heating and electricity bill?: No Do you have trouble taking care of your child, family member or friend?: No Do you have trouble with day-to-day activities such as bathing, preparing meals, shopping, managing finances, etc.?: No Are you currently unemployed and looking for a job?: No Are you interested in more education?: No Please select the resources that you would like help with: None THRIVE Score: 0 AUDIT C Alcohol Use Questionnaire (AUDIT-C) 1. How often do you have a drink containing alcohol?: 2-4 times a month 2. How many drinks containing alcohol do you have on a typical day when you are drinking?: 1 or 2 3. How often do you have six or more drinks on one occasion?: Never Total Score: 2 Score Reviewed/Action Taken: No HANNA-7 AMB Questionnaire HANNA-7 Date HANNA - 7 assessed: 11/14/24 Feeling nervous, anxious, or on edge: 0 = Not at all Not being able to stop or control worryin = Not at all Worrying too much about different things: 0 = Not at all Trouble relaxin = Not at all Being so restless that it is hard to sit still: 0 = Not at all Becoming easily annoyed or irritable: 0 = Not at all Feeling afraid as if something awful might happen: 0 = Not at all Total HANNA-7 score (0-4 normal; 5-9 mild; 10-14 moderate; 15-21 severe): 0 Source: Developed by Drs. Bhavin Diaz, Radha Duenas, Jarrett Liriano and colleagues, with an educational maureen from [employer]. HANNA-7 Assessment Billing HANNA-7 Assessment Tool: HANNA-7 Assessment 59701 Review of Systems Const Details: - Cardiovascular: Denies chest pain. - Gastrointestinal: Denies abdominal pain. - Genitourinary: Denies dysuria. - Dermatological: Denies rashes. - Musculoskeletal: Denies foot pain. Physical exam (Primary Care) Vital Signs: Last Vital Signs Temp 98.2 F 02/13/25 09:00 Pulse 94 02/13/25 09:00 Resp 16 02/13/25 09:00 BP 129/56 L 02/13/25 09:00 Pulse Ox 96 02/13/25 09:00 Oxygen Delivery Method Room Air 02/13/25 09:00 Vitals signs have been reviewed. Care Plan Goal for BP management: <140/90 at Goal BMI result Body Mass Index 32.0 BMI Assessment/Plan discussion: High BMI High, discussed plan: lifestyle, weight reduction, dietary, physical activity, alcohol moderation and other Tobacco/Smoking Status: Tobacco use Status Tobacco use date assessed 02/13/25 02/13/25 09:01 Patient Tobacco Use Status Current everyday Tobacco 02/13/25 09:01 Tobacco use type Cigarette 02/13/25 09:01 PHQ-9: PHQ-9 Score PHQ-9: Total score 0 02/13/25 09:27 Depression Screening Interpretation: Negative Thrive Assessment: Date of Thrive Assessment Date Thrive assessed 11/14/24 02/13/25 09:01 Const Other: Appearance: Alert. Oriented X3. No acute distress. Head: Normal external exam. Normocephalic. Atraumatic. Eyes: Pupils are equal, round, and reactive to light. Extraocular movements intact. Conjunctiva and sclera normal. Eyelids normal. Throat: Pharynx normal. Uvula midline. Moist mucous membranes. Neck: Normal inspection. Neck supple. Full range of motion. No adenopathy. Thyroid Normal. No meningeal signs. No neck mass noted. Patient with tenderness to palpation to bilateral paracervical musculature. No mid cervical tenderness step-offs or deformities. No signs of infection. Cardiovascular: Normal heart rate and rhythm. Heart sound normal. No murmurs noted. Pulses normal throughout. Respiratory: No respiratory distress. Painless inspiration. Breath sounds normal. No wheezes/rales/rhonchi noted. No accessory muscle usage noted or decreased air movement noted. Patient has surgical wound to anterior chest that is well healing no signs of infection with some normal bruising noted. No purulent drainage, foul odor, crepitus or induration or fluctuance noted. Patient does have tenderness over this area which he reports has been persistent and improving. Abdomen: Soft and nontender. Bowel sounds normal in all 4 quadrants. No distention noted. No organomegaly noted. Surgical scars in place no signs of infection with sutures in place. Back: No costovertebral angle tenderness. Full range of motion noted. No mid cervical/thoracic or lumbar tenderness step-offs or deformities noted. No fluctuance/lesions/induration or signs of active infection. Skin: Skin warm and dry. Normal skin color. Normal skin turgor. No rashes/lesions/lacerations noted. Extremities: No lower extremity edema. Extremities exhibit normal range of motion. Extremities nontender. Neuro: Oriented X 3. No motor deficit. Some numbness to the left arm since the surgery otherwise no additional sensory deficit. May be related to the patient's surgical scars and soft tissue swelling which is improving. No signs of infection. Reflexes normal. Normal steady gait. Results AMB Hemoglobin A1c AMB Hemoglobin A1c 6.6 % Last Edit by CANDIDO Shah on 02/13/25 09:20 Results Reviewed Results Reviewed: Laboratory Last Values Hgb A1c (Clinic) 6.6 % (4.0-6.0) H 02/13/25 09:02 - Labs: A1c measured at 6.6, indicating good glycemic control. - Imaging: Coronary CT and cardiac catheterization confirmed coronary artery disease. Coding Level of Care Code TCM High MDM <= 7 Days Complex EM visit Add On G2211 Diagnoses Hospital discharge follow-up Z09 Postoperative pain G89.18 Coronary artery disease I25.10 Type 2 diabetes mellitus with hemoglobin A1c goal of less than 7.0% E11.9 HTN (hypertension) I10 Enlarged prostate N40.0 Muscle pain, cervical M54.2 Additional Codes HANNA-7 Assessment Billing - HANNA-7 Assessment Tool: HANNA-7 Assessment 78095 ([id number]) PHQ-9 - 84294 - PHQ-9 Billing: Yes ([id number]) Time Spent (min) 60 Assessment & Plan Assessment & Plan (1) Hospital discharge follow-up: Code(s): Z09 - Encounter for follow-up examination after completed treatment for conditions other than malignant neoplasm Category: Medical Plan: The patient underwent coronary artery bypass grafting for coronary artery disease, with follow-up appointments scheduled with Dr. Ochoa and Dr. Arias. Cardiac rehabilitation is planned to start on March 03 at the [facility] to aid in recovery. (2) Postoperative pain: Code(s): G89.18 - Other acute postprocedural pain Category: Medical Plan: The patient reports severe postoperative pain in the neck and upper back, unrelieved by oxycodone and Tylenol. A muscle relaxant, possibly gabapentin, was suggested to alleviate the muscle tightness. (3) Coronary artery disease: Code(s): I25.10 - Atherosclerotic heart disease of [place] coronary artery without angina pectoris Category: Medical Plan: The patient underwent coronary artery bypass grafting for coronary artery disease, with follow-up appointments scheduled with Dr. Ochoa and Dr. Cha hyman. Cardiac rehabilitation is planned to start on March 03 at the [facility] to aid in recovery. (4) Type 2 diabetes mellitus with hemoglobin A1c goal of less than 7.0%: Code(s): E11.9 - Type 2 diabetes mellitus without complications Category: Medical Plan: The patient's diabetes is currently well-controlled with an A1c of 6.6, and insulin therapy was deemed unnecessary at this time. The patient will continue with metformin 1000 mg twice daily. (5) HTN (hypertension): Code(s): I10 - Essential (primary) hypertension Category: Medical Plan: The patient's hypertension is managed with metoprolol, and current blood pressure is well-controlled at 129/56 mmHg. (6) Enlarged prostate: Code(s): N40.0 - Benign prostatic hyperplasia without lower urinary tract symptoms Category: Medical Plan: The patient is on Flomax for prostate enlargement and will follow up with urology for further management. (7) Muscle pain, cervical: Code(s): M54.2 - Cervicalgia Category: Medical Plan: The patient experiences muscle pain in the neck and upper back, with plans to try a muscle relaxant for relief. Plan Plan Patient was informed and verbally consented to the use of an ambient scribe for clinic note documentation during this visit. 1. Coronary Artery Disease The patient underwent coronary artery bypass grafting for coronary artery disease, with follow-up appointments scheduled with Dr. Ochoa and Dr. Arias. Cardiac rehabilitation is planned to start on March 03 at the [facility] to aid in recovery. 2. Postoperative Pain The patient reports severe postoperative pain in the neck and upper back, unrelieved by oxycodone and Tylenol. A muscle relaxant, possibly gabapentin, was suggested to alleviate the muscle tightness. 3. Diabetes Mellitus The patient's diabetes is currently well-controlled with an A1c of 6.6, and insulin therapy was deemed unnecessary at this time. The patient will continue with metformin 1000 mg twice daily. 4. Hypertension The patient's hypertension is managed with metoprolol, and current blood pressure is well-controlled at 129/56 mmHg. 5. Prostate Enlargement The patient is on Flomax for prostate enlargement and will follow up with urology for further management. 6. Muscle Pain The patient experiences muscle pain in the neck and upper back, with plans to try a muscle relaxant for relief. During the visit, we discussed the patient's recent coronary artery bypass grafting and the importance of follow-up with Dr. Ochoa and Dr. Arias. We also addressed the patient's postoperative pain management, considering a muscle relaxant to alleviate symptoms. The patient's diabetes management was reviewed, and it was decided to continue with metformin due to good glycemic control. We emphasized the need for cardiac rehabilitation starting on March 03 to support recovery. Orders: Orders AMB Hemoglobin A1c Today E11.9 - Type 2 diabetes mellitus without complications Comprehensive Met. Panel Today Z00.00 - Encounter for general adult medical examination without abnormal findings Complete Blood Count Auto Diff Today Z00.00 - Encounter for general adult medical examination without abnormal findings Magnesium Today Z00.00 - Encounter for general adult medical examination without abnormal findings Medications: New cyclobenzaprine 10 mg PO Q8H 30 tabs 0RF oxycodone 2.5 mg (1/2 x 5 mg) PO Q6H PRN 30 tabs 0RF moderate pain Patient Instructions: - Continue taking metformin as prescribed. - Attend scheduled follow-up appointments with Dr. Ochoa and Dr. Arias. - Start cardiac rehabilitation on March 03 at the [facility]. - Try a muscle relaxant as discussed for neck and upper back pain. - Monitor blood pressure regularly and report any significant changes.
[2025-02-13 09:00] VITALS: BP 129/56; PULSE 94; RESP 16; TEMP 36.8; O2SAT 96; BMI 32.0
== END 2025-02-13 09:45 | disposition home or self-care (01) ==
LOC: HO.HMCSH 08:58
PROVIDERS: PCP Internal Medicine; Visit Provider Physician Assistant Medical
DX: I25.10 Atherosclerotic heart disease of native coronary artery without angina pectoris (principal); E11.9 Type 2 diabetes mellitus without complications; Z09 Encounter for follow-up examination after completed treatment for conditions other than malignant neoplasm; G89.18 Other acute postprocedural pain; I10 Essential (primary) hypertension; N40.0 Benign prostatic hyperplasia without lower urinary tract symptoms; M54.2 Cervicalgia

== ENCOUNTER → 2025-02-13 08:57 | Outpatient (BNVA) | payer OTHER, SELFPAY | PROVIDERS: PCP Internal Medicine; Visit Provider Physician Assistant Medical | DX: E11.9 Type 2 diabetes mellitus without complications (principal); G89.18 Other acute postprocedural pain; I25.10 Atherosclerotic heart disease of native coronary artery without angina pectoris; I10 Essential (primary) hypertension; N40.0 Benign prostatic hyperplasia without lower urinary tract symptoms; M54.2 Cervicalgia; Z09 Encounter for follow-up examination after completed treatment for conditions other than malignant neoplasm | CPT/HCPCS: 83036; 96127 ==

== ENCOUNTER 2025-02-24 14:38 | Outpatient (AMB) | payer OTHER, SELFPAY ==
[2025-02-24 14:51] VITALS: BP 110/60; PULSE 65; BMI 31.8
--- NOTE | 2025-02-24 14:51 | MHC.OFFVIS ---
Vital Signs 02/24/25 14:51 Height 5 ft 6 in Weight 197 lb BMI 31.8 BP 110/60 Blood Pressure Location Rt brachial Position Sitting Pulse 65 Pulse Source Monitor Intake Visit Reasons: Post Op- [facility]- CABG-Follow up Allergies amoxicillin (AMOXICILLIN) Allergy (Unknown, Verified 02/13/25 09:46) HIVES monosodium glutamate (MSG) Allergy (Unknown, Verified 02/13/25 09:46) NAUSEA Penicillins (PENICILLINS) Allergy (Unknown, Verified 02/13/25 09:46) HIVES Medication List - Last Reconciled 02/24/25 by Solo Arias MD acetaminophen 500 mg PO Q6H PRN albuterol sulfate 90 mcg/actuation 2 puffs inhalation Q4H PRN amiodarone 200 mg PO BID aspirin 81 mg PO DAILY atorvastatin 80 mg PO DAILY cholecalciferol (vitamin D3) 25 mcg PO DAILY cyclobenzaprine 10 mg PO Q8H lisinopril 10 mg PO DAILY lorazepam 0.5 mg PO BEDTIME PRN metformin 1,000 mg PO BID metoprolol tartrate 50 mg PO BID oxycodone 2.5 mg (1/2 x 5 mg) PO Q6H PRN tamsulosin (Flomax) 0.4 mg PO BEDTIME 30 days HPI Comments Details: Tawanda returns for follow-up. To recall, he was originally seen in consultation regarding preoperative risk stratification for hernia surgery. That was uneventful. Due to multiple cardiovascular risk factors including obesity, smoking, diabetes, hypertension, dyslipidemia, he underwent further workup which led to diagnostic catheterization and eventually coronary artery bypass surgery. Overall, he is slowly recovering from the surgery. He is gaining strength and generally getting along okay. [facility] Medical History (Updated 02/13/25 @ 11:10 by Ruby Dye PA-C) Postoperative pain Muscle pain, cervical Enlarged prostate Coronary artery disease Hospital discharge follow-up Type 2 diabetes mellitus with hemoglobin A1c goal of less than 7.0% Chelo disease Genital warts Anal warts Mild hypercholesterolemia Malignant neoplasm of urinary bladder (~2018) Hematuria HTN (hypertension) DMII (diabetes mellitus, type 2) Chelo disease Nicotine dependence, cigarettes, uncomplicated History of condyloma acuminatum Surgical History History of colonoscopy (~09/06/20) History of umbilical hernia repair (03/11/24) History of transurethral resection of bladder tumor (TURBT) History of vasectomy History of tonsillectomy Family History Mother Thyroid disease Father Diabetes Heart failure Social History Housing: House Alcohol intake: current Alcohol intake frequency: a few times a month Patient Tobacco Use Status: Current everyday Tobacco user Tobacco use type: Cigarette Cigarette Packs Per Day: 1 service: No Current occupational status: employed Cognitive needs: No Hearing needs: No Vision needs: Yes (reading glasses) Review of Systems Const Denies weakness ENT Denies dizziness Card Denies chest pain, Denies chest pain with activity, Denies syncope, Denies rapid heart rate, Denies pedal edema, Denies edema, Denies leg edema, Denies lightheadedness, Denies palpitations, Denies dyspnea, Denies dyspnea on exertion and Denies orthopnea Resp Denies cough, Denies dyspnea and Denies dyspnea on exertion GI Denies hematochezia and Denies change in stool character Musc Denies abnormal gait, Denies muscle cramps, Denies muscle weakness, Denies numbness, Denies radiating pain into limb and Denies tingling Neuro Denies abnormal gait, Denies dizziness, Denies syncope, Denies numbness, Denies tingling and Denies weakness Endo Denies palpitations Physical Exam Vital Signs: Last Vital Signs Pulse 65 02/24/25 14:51 BP 110/60 02/24/25 14:51 BMI result Body Mass Index 31.8 Const General: comfortable and no acute distress Orientation/consciousness: patient oriented x3 HEENT Other: Unremarkable Head: Yes normal to inspection Neck Neck: Yes normal visual inspection Chest Chest palpation & inspection: normal inspection of the chest Resp Auscultation: clear to auscultation bilaterally Cardio Palpation: normal PMI Heart sounds: S1 normal heart sound present, S2 normal heart sound present, no gallops, no murmurs and no rubs GI Palpation (GI): Soft to palpation Back/Spine/Pelvis Other: unremarkable Skin General skin exam: no rashes or lesions noted Neuro General: patient oriented x3 Extrem General: Yes normal to inspection Psych Mental Status: mental status grossly normal Office Procedures EKG Details: EKG with underlying sinus rhythm at 65/Min; leftward axis; right bundle-branch block pattern; [place]. [id number], Complete Assessment & Plan Assessment & Plan (1) Atherosclerotic cardiovascular disease: Code(s): I25.10 - Atherosclerotic heart disease of [place] coronary artery without angina pectoris Category: Medical (2) HTN (hypertension): Code(s): I10 - Essential (primary) hypertension Category: Medical (3) DMII (diabetes mellitus, type 2): Code(s): E11.9 - Type 2 diabetes mellitus without complications Category: Medical Plan Cardiac studies reviewed. In the echocardiogram, LVEF 55-60%. No wall motion abnormalities. Otherwise, unremarkable. In the exercise stress test, he exercised for 7 METS. Had hypertensive blood pressure response. In the echocardiographic component, posterior/inferolateral wall could not be evaluated well, but otherwise no obvious abnormalities. Coronary CTA-extensive coronary calcification; owks-ci-solshvmv stenosis in multiple arteries. FFR functionally significant mid LAD/distal part of mid RCA. There was also widespread disease in addition to the above focal stenosis and recommendation was to pursue cardiac catheterization. Cardiac catheterization was significant disease in the LAD/RCA. Postop echo at [facility]-LVEF 50-55%. Inferolateral hypokinesis. Currently, status post CABG x2. It seems he had some postoperative AFib but then resolved. Today in sinus rhythm. Short-term amiodarone as prescribed. No absolute indication for anticoagulation unless there is clear recurrence. Otherwise, continue the current regimen including aspirin, beta-blockers and statins for now. We can make any necessary changes in follow up visits. He is also starting cardiac rehabilitation soon. Discussion Notes I discussed with the patient the importance of adhering to his medication regimen, particularly the lifelong use of aspirin and atorvastatin, and the short-term use of amiodarone to prevent atrial fibrillation. We talked about the referral to cardiac rehabilitation and its role in his recovery, emphasizing the need for clearance from the surgical team before resuming certain activities. A follow-up appointment is scheduled in three months to evaluate his progress and adjust his treatment plan as necessary. Patient was informed and verbally consented to the use of an ambient scribe for clinic note documentation during this visit. Patient Instructions: - Continue taking aspirin and atorvastatin as prescribed. - Complete the course of amiodarone as directed. - Attend cardiac rehabilitation sessions twice a week. - Seek clearance from your surgical team before resuming activities like driving a lawn tractor. - Follow up in three months for reassessment. Coding Level of Care Code Est Pt Level 4 (87182) Complex EM visit Add On G2211 Diagnoses Atherosclerotic cardiovascular disease I25.10 HTN (hypertension) I10 DMII (diabetes mellitus, type 2) E11.9 CPT Codes EKG - CPT: 26969-Gjnyanedojztbwskk, Complete ([id number])
--- OUTSIDE RECORDS SUMMARY | 2025-02-24 15:59 | XMS_ITS | Clinical Summary ---
Author Organization [facility] Address [address] [place] [phone] Phone Care Team Providers Care Electro Winning Operator Name Role Phone Jeff Guevara MD Primary Care Provid er Encounters Date Type Department Care Team Description 02/02/2025 Orders Only [facility] [address] [place] [phone] Homehealth, Interface ProviderMD from Last 3 Months Social History Tobacco Use Types Packs/Day Years Used Date Smoking Tobacco: Never Assessed Education Answer Date Recorded Are you interested in more education? Not on edy e 02/02/2025 Are you concerned about learning? Not on file 02/02/2025 No 02/02/2025 No 02/02/2025 Digital Access Answer Date Recorded No 02/02/2025 No 02/02/2025 Reliable internet access at home? Not on file 02/02/2025 Device with a working camera? Not on file Sex and Gender Information Value Date Recorded Sex Assigned at Not on file Legal Sex Male 3:45 PM EDT Gender Identity Not on file Sexual Orientation Not on file Plan of Treatment Not on file Medical Devices Not on file Insurance AETNA PPO AETNA PPO AETNA PPO AETNA PPO AETNA PPO AETNA PPO Care Teams Electro Winning Operator Relationship Specialty Start Date End Date Jeff Guevara MD [address] [place] [id number] PCP - General Internal Medicine 02/03/25 Additional Source Comments The information contained in this document represents components of the legal health record. It is not the complete legal health record.[facility]
== END 2025-02-24 15:18 | disposition home or self-care (01) ==
LOC: HO.HCS 14:39
PROVIDERS: PCP Internal Medicine; Visit Provider Internal Medicine
DX: I25.10 Atherosclerotic heart disease of native coronary artery without angina pectoris (principal); I10 Essential (primary) hypertension; E11.9 Type 2 diabetes mellitus without complications
CPT/HCPCS: 93010; 99214; G2211

== ENCOUNTER → 2025-02-24 14:38 | Outpatient (BNVA) | payer OTHER, SELFPAY | PROVIDERS: PCP Internal Medicine; Visit Provider Internal Medicine | DX: I25.10 Atherosclerotic heart disease of native coronary artery without angina pectoris (principal) | CPT/HCPCS: 93005 ==

== ENCOUNTER 2025-03-25 10:46 | Outpatient (AMB) | payer OTHER, SELFPAY ==
--- NOTE | 2025-03-25 10:49 | A.OFFVIS_ITS ---
Vital Signs 03/25/25 10:58 Height 5 ft 6 in Weight 203 lb BMI 32.8 BP 117/69 Blood Pressure Location Rt brachial Position Sitting Pulse 82 Intake Visit Reasons: Anogenital (venereal) warts Intake Note: Patient referred by Ruby Dye PA-C for evaluation and treatment of anogenital warts. Present for 30yrs. Patient c/o: one wart recently itchy, irritated. Denies bleeding. Previously treated with LN. Boot Lace Cutter Machine Required: No Accompanied by: Self / Same As Patient Allergies amoxicillin (AMOXICILLIN) Allergy (Unknown, Verified 02/13/25 09:46) HIVES monosodium glutamate (MSG) Allergy (Unknown, Verified 02/13/25 09:46) NAUSEA Penicillins (PENICILLINS) Allergy (Unknown, Verified 02/13/25 09:46) HIVES Medication List - Last Reconciled 03/25/25 by Ti Kaufman MD acetaminophen 500 mg PO Q6H PRN albuterol sulfate 90 mcg/actuation 2 puffs inhalation Q4H PRN amiodarone 200 mg PO BID aspirin 81 mg PO DAILY atorvastatin 80 mg PO DAILY cholecalciferol (vitamin D3) 25 mcg PO DAILY cyclobenzaprine 10 mg PO Q8H lisinopril 10 mg PO DAILY lorazepam 0.5 mg PO BEDTIME PRN metformin 1,000 mg PO BID metoprolol tartrate 50 mg (2 x 25 mg) PO BID tamsulosin (Flomax) 0.4 mg PO BEDTIME 30 days HPI HPI Anogenital (venereal) warts: Details: He is here for ?wart? on his perianal area. He said he has had this for about 6 months. He said he had warts removed from his perianal area about 30 years ago. He otherwise denies any significant complaints He did have CABG done last January, in [facility]. He is not on blood thinners. [facility] Medical History (Updated 03/25/25 @ 11:06 by Ti Kaufman MD) Perianal lesion Postoperative pain Muscle pain, cervical Enlarged prostate Coronary artery disease Hospital discharge follow-up Type 2 diabetes mellitus with hemoglobin A1c goal of less than 7.0% Chelo disease Genital warts Anal warts Mild hypercholesterolemia Malignant neoplasm of urinary bladder (~2019) Hematuria HTN (hypertension) DMII (diabetes mellitus, type 2) Chelo disease Nicotine dependence, cigarettes, uncomplicated History of condyloma acuminatum Surgical History Aortocoronary bypass status History of colonoscopy (~09/06/20) History of umbilical hernia repair (03/11/24) History of transurethral resection of bladder tumor (TURBT) History of vasectomy History of tonsillectomy Family History Mother Thyroid disease Father Diabetes Heart failure Social History Housing: House Alcohol intake: current Alcohol intake frequency: a few times a month Patient Tobacco Use Status: Current everyday Tobacco user Tobacco use type: Cigarette Cigarette Packs Per Day: 1 service: No Current occupational status: employed Cognitive needs: No Hearing needs: No Vision needs: Yes (reading glasses) Review of Systems Const Denies chills and Denies fever(s) Card Denies chest pain, Denies dyspnea and Denies dyspnea on exertion Resp Denies cough, Denies dyspnea and Denies dyspnea on exertion GI Denies hematochezia and Denies change in bowel habits Denies hematuria and Denies difficulty urinating Musc Denies back pain and Denies limited range of motion Neuro Denies focal weakness and Denies convulsions Psych Denies depression and Denies mood swings Physical Exam Vital Signs: Last Vital Signs Pulse 82 03/25/25 10:58 BP 117/69 03/25/25 10:58 BMI result Body Mass Index 32.8 Const General: comfortable and no acute distress Orientation/consciousness: patient oriented x3 Neck Neck: Yes no lymphadenopathy Resp Auscultation: clear to auscultation bilaterally Cardio Rhythm: regular rhythm GI Other: Rectal exam shows a small elevated fleshy skin lesion about 4 mm in size on the right perianal area Palpation (GI): Soft to palpation, nontender and no guarding Neuro General: patient oriented x3 Assessment & Plan Assessment & Plan (1) Perianal lesion: Code(s): K62.9 - Disease of anus and rectum, unspecified Category: Medical Plan: This is likely to be a verruca versus a from about this lesion. He wants this removed. I explained the technique of excision under local anesthesia. I reviewed the risks, benefits, and alternatives. He wants to proceed. This will be done in the office on his next visit under local anesthesia Coding Level of Care Code Est Pt Level 3 (99294) Diagnoses Perianal lesion K62.9
[2025-03-25 10:58] VITALS: BP 117/69; PULSE 82; BMI 32.8
--- OUTSIDE RECORDS SUMMARY | 2025-03-25 13:37 | XMS_ITS | Clinical Summary ---
Author Organization [facility] Address [address] [place] [phone] Phone Care Team Providers Care Case Packer Name Role Phone Jeff Guevara MD Primary Care Provid er Encounters Date Type Department Care Team Description 02/02/2025 Orders Only [facility] [address] [place] [phone] Homehealth, Interface ProviderMD from Last 3 Months [...] PPO AETNA PPO AETNA PPO Care Teams Case Packer Relationship Specialty Start Date End Date Jeff Guevara MD [address] [place] [phone] PCP - General Internal Medicine 02/03/25 Additional Source Comments The information contained in this document represents components of the legal health record. It is not the complete legal health record.[facility]
== END 2025-03-25 11:09 | disposition home or self-care (01) ==
LOC: HO.HGS 10:46
PROVIDERS: PCP Internal Medicine; Visit Provider Surgery
DX: K62.9 Disease of anus and rectum, unspecified (principal)
CPT/HCPCS: 99213

== ENCOUNTER 2025-04-08 11:26 | Outpatient (REF) | payer OTHER, SELFPAY ==
--- NOTE | ~2025-04-08 | CT_ITS ---
EXAMINATION: CT LOW-DOSE SCREENING CHEST WITHOUT CONTRAST CLINICAL INFORMATION: 65-year-old male, smoker, 50 pack years, lung cancer screening. COMPARISON: 04/04/2024. TECHNIQUE: Multidetector volumetric CT imaging of the chest is performed on a Siemens SOMATOM Definition scanner without contrast using low dose technique. Additional 2D coronal and sagittal reformatted images and axial 3D maximum intensity projection (MIP) images are generated on the CT workstation. This CT examination was performed using dose optimization techniques as appropriate, variously including the following: *Automated exposure control *Adjustment of mA and/or kV according to patient size (this includes techniques or standardized protocols for targeted exams where dose is matched to indication/reason for exam; i.e. extremities or head) *Use of iterative reconstruction technique FINDINGS: PULMONARY NODULES: There are a few tiny 2 mm calcified granulomata, unchanged. There are no suspicious pulmonary nodules present. LUNGS: Lungs are well aerated. There is minimal centrilobular emphysema. There is very mild small airway thickening in keeping with chronic bronchitis. Minimal linear scarring in the right base, lingula, and medial right middle lobe. No abnormal consolidative opacities. No effusion or pneumothorax. MEDIASTINUM: There has been prior median sternotomy and CABG. There is no adenopathy or mass. The aorta is mildly calcified, but nonaneurysmal. The main pulmonary artery is normal in size. The heart size is normal. There is no pericardial effusion. Central airways are patent. Mild Global enlargement of the thyroid without discrete nodule. CORONARY ARTERY CALCIFICATION: Heavy. CHEST WALL/AXILLA: No abnormal lymph nodes or masses. Prior median sternotomy scarring. UPPER ABDOMEN: Included portions of the solid organs in the upper abdomen unremarkable on noncontrast imaging. OSSEOUS STRUCTURES: No suspicious lytic or blastic bone lesion. Mild degenerative changes of the spine. CT/CT lung screening IMPRESSION: 1. No suspicious pulmonary nodules. 2. Minimal centrilobular emphysema. No active lung disease. 3. Prior sternotomy and CABG. Heavy coronary calcifications. ASSESSMENT: 1. Lung-RADS Category 1: Negative. There are no nodules or there are definitely benign nodules. 2. Lung-RADS Category S: None. RECOMMENDATION: Continued routine annual low-dose CT lung screening in 1 year is recommended. An order for CT CHEST LOW DOSE CANCER SCREENING ([id number]) can be placed. Electronically signed by: Gualberto Hart MD 04/08/2025 01:02 PM EDT RP
--- OUTSIDE RECORDS SUMMARY | 2025-04-08 13:01 | XMS_ITS | Clinical Summary ---
Author Organization [facility] Address [address] [place] [phone] Phone Care Team Providers Care Commercial Parts Professional Name Role Phone Jeff Guevara MD Primary Care Provid er Encounters Date Type Department Care Team Description 02/02/2025 Orders Only [facility] [address] [place] [phone] Homehealth, Interface ProviderMD from Last 3 Months Social History Tobacco Use Types Packs/Day Years Used Date Smoking Tobacco: Never Assessed Education Answer Date Recorded Are you interested in more education? Not on eyd e 02/02/2025 Are you concerned about learning? [...] PPO AETNA PPO AETNA PPO Care Teams Commercial Parts Professional Relationship Specialty Start Date End Date Jeff Guevara MD [address] [place] [phone] PCP - General Internal Medicine 02/03/25 Additional Source Comments The information contained in this document represents components of the legal health record. It is not the complete legal health record.[facility]
== END 2025-04-08 11:27 | disposition home or self-care (01) ==
LOC: HO.CT 11:26
PROVIDERS: PCP Internal Medicine; Visit Provider Physician Assistant Medical
DX: Z12.2 Encounter for screening for malignant neoplasm of respiratory organs (principal); F17.210 Nicotine dependence, cigarettes, uncomplicated
CPT/HCPCS: 71271

== ENCOUNTER → 2025-04-08 11:38 | Outpatient (BNV) | payer OTHER, SELFPAY | PROVIDERS: PCP Internal Medicine; Visit Provider Radiology Diagnostic Radiology | DX: F17.210 Nicotine dependence, cigarettes, uncomplicated (principal) | CPT/HCPCS: 71271 ==

== ENCOUNTER 2025-04-30 14:01 | Outpatient (AMB) | payer OTHER, SELFPAY ==
--- NOTE | 2025-04-30 14:03 | A.OFFVIS_ITS ---
Vital Signs 04/30/25 14:08 Height 5 ft 6 in Weight 202 lb 15.991 oz BMI 32.8 Intake Visit Reasons: excision Anogenital (venereal) warts Intake Note: Office procedure: excision Anogenital (venereal) warts Embedded Software Developer Required: No Accompanied by: Self / Same As Patient Allergies amoxicillin (AMOXICILLIN) Allergy (Unknown, Verified 04/30/25 14:03) HIVES monosodium glutamate (MSG) Allergy (Unknown, Verified 04/30/25 14:03) NAUSEA Penicillins (PENICILLINS) Allergy (Unknown, Verified 04/30/25 14:03) HIVES HPI HPI excision Anogenital (venereal) warts: Details: He is here for excision of a perianal lesion. [facility] Medical History Perianal lesion Postoperative pain Muscle pain, cervical Enlarged prostate Coronary artery disease Hospital discharge follow-up Type 2 diabetes mellitus with hemoglobin A1c goal of less than 7.0% Chelo disease Genital warts Anal warts Mild hypercholesterolemia Malignant neoplasm of urinary bladder (~2018) Hematuria HTN (hypertension) DMII (diabetes mellitus, type 2) Chelo disease Nicotine dependence, cigarettes, uncomplicated History of condyloma acuminatum Surgical History Aortocoronary bypass status History of colonoscopy (~09/06/20) History of umbilical hernia repair (03/11/24) History of transurethral resection of bladder tumor (TURBT) History of vasectomy History of tonsillectomy Family History Mother Thyroid disease Father Diabetes Heart failure Social History Housing: House Alcohol intake: current Alcohol intake frequency: a few times a month Patient Tobacco Use Status: Current everyday Tobacco user Tobacco use type: Cigarette Cigarette Packs Per Day: 1 service: No Current occupational status: employed Cognitive needs: No Hearing needs: No Vision needs: Yes (reading glasses) Physical Exam Vital Signs: BMI result Body Mass Index 32.8 Office Procedures Excision Details: He was in right lateral decubitus position. The left buttock was retracted with wide tape. The area of the perianal skin lesion was prepped and draped. Lidocaine 1% was used for local anesthesia. I made an elliptical incision around the skin lesion with a blade 15.. This was carried down through the full-thickness skin and subcutaneous fat to excise the entire lesion. The lesions about 5 mm in diameter. The incision was closed with full-thickness chromic 4-0 interrupted sutures. He tolerated the procedure well. There were no immediate complications. He was instructed on wound care. [id number]/arms/legs < 0.5cm Procedure code (CPT) selection complete Assessment & Plan Assessment & Plan (1) Perianal lesion: Code(s): K62.9 - Disease of anus and rectum, unspecified Category: Medical Plan: Excision was done in the office. He is given wound care instructions. We will wait for the path report. He will be seen in the office for a wound check. Coding Level of Care Code Procedure Only Diagnoses Perianal lesion K62.9 CPT Codes Trunk/Arms/Legs - CPT: 54002-qfaoz/arms/legs < 0.5cm ([id number])
[2025-04-30 14:08] VITALS: BMI 32.8
--- OUTSIDE RECORDS SUMMARY | 2025-04-30 17:53 | XMS_ITS | Clinical Summary ---
Author Organization [facility] Address [address] [facility] [address] [facility] [address] [place] [phone] Phone Care Team Providers Care Crayon Sawyer Name Role Phone Jeff Guevara MD Primary Care Provid er Encounters Date Type Department Care Team Description 02/02/2025 Orders Only [facility] [address] [place] [phone] Homehealth, Interface ProviderMD from Last 3 Months [...] PPO AETNA PPO AETNA PPO Care Teams Crayon Sawyer Relationship Specialty Start Date End Date Jeff Guevara MD [address] [place] [phone] PCP - General Internal Medicine 02/03/25 Additional Source Comments The information contained in this document represents components of the legal health record. It is not the complete legal health record.[facility]
== END 2025-04-30 14:21 | disposition home or self-care (01) ==
LOC: HO.HGS 14:02
PROVIDERS: PCP Internal Medicine; Visit Provider Surgery
DX: K62.9 Disease of anus and rectum, unspecified (principal); A63.0 Anogenital (venereal) warts
CPT/HCPCS: 11400

== ENCOUNTER 2025-04-30 14:01 | Outpatient (REF) | payer OTHER, SELFPAY | END 2025-04-30 14:02 | disposition home or self-care (01) | LOC: HO.LNP 14:01 | PROVIDERS: PCP Internal Medicine; Visit Provider Surgery | DX: K62.9 Disease of anus and rectum, unspecified (principal); A63.0 Anogenital (venereal) warts | CPT/HCPCS: 11400; 88304 ==

== ENCOUNTER 2025-05-11 13:30 | Outpatient (AMB) | payer OTHER, SELFPAY ==
[2025-05-11 13:31] VITALS: BMI 32.8
--- NOTE | 2025-05-11 13:31 | MHC.OFFVIS ---
Vital Signs 05/11/25 13:31 Height 5 ft 6 in Weight 202 lb 15.991 oz BMI 32.8 Intake Visit Reasons: s/p wart removal Intake Note: Patient here s/p perianal lesion removal. Patient c/o: no complaints at this time. WLE (): 04-30-2025 Associate Chief Nurse Required: No Accompanied by: Self / Same As Patient Allergies amoxicillin (AMOXICILLIN) Allergy (Unknown, Verified 05/11/25 13:32) HIVES monosodium glutamate (MSG) Allergy (Unknown, Verified 05/11/25 13:32) NAUSEA Penicillins (PENICILLINS) Allergy (Unknown, Verified 05/11/25 13:32) HIVES HPI HPI s/p wart removal: Details: Doing well, no concerns. Denies pain, denies bleeding, denies fevers at home. No issues with bowel movements. He thinks the sutures have fallen off at this point FORMERLY [facility], [facility] Medical History (Updated 05/11/25 @ 13:47 by Paramjit Myers PA-C) Perianal lesion Postoperative pain Muscle pain, cervical Enlarged prostate Coronary artery disease Hospital discharge follow-up Type 2 diabetes mellitus with hemoglobin A1c goal of less than 7.0% Chelo disease Genital warts Anal warts Mild hypercholesterolemia Malignant neoplasm of urinary bladder (~2018) Hematuria HTN (hypertension) DMII (diabetes mellitus, type 2) Chelo disease Nicotine dependence, cigarettes, uncomplicated History of condyloma acuminatum Surgical History History of surgical removal of lesion (~04/30/25) Aortocoronary bypass status History of colonoscopy (~09/06/20) History of umbilical hernia repair (03/11/24) History of transurethral resection of bladder tumor (TURBT) History of vasectomy History of tonsillectomy Family History Mother Thyroid disease Father Diabetes Heart failure Social History Housing: House Alcohol intake: current Alcohol intake frequency: a few times a month Patient Tobacco Use Status: Current everyday Tobacco user Tobacco use type: Cigarette Cigarette Packs Per Day: 1 service: No Current occupational status: employed Cognitive needs: No Hearing needs: No Vision needs: Yes (reading glasses) Review of Systems Const All systems reviewed & are unremarkable except as noted in HPI and below Physical Exam Vital Signs: BMI result Body Mass Index 32.8 Const General: comfortable and no acute distress Orientation/consciousness: patient oriented x3 Resp Effort & Inspection: normal respiratory effort and able to speak in complete sentences GI Other: Excision site, no open wound, no sutures present. No drainage or bleeding. No surrounding cellulitis Rectal Exam - Male: Yes visual inspection normal and No Lesions present (GI) Neuro General: patient oriented x3 Assessment & Plan Assessment & Plan (1) Anal warts: Code(s): A63.0 - Anogenital (venereal) warts Category: Medical Plan 65-year-old male s/p excision of anal lesion on 05/01/[address] Kaufman returning to the office for wound check. Overall doing well, no pain, no bleeding, no fevers, no discharge. He has no complaints. On exam the area appears to be well healed, was unable to appreciate sutures, likely that they have dissolved already. The wound was closed, no cellulitic changes or other concern for infection at the surgical site. We reviewed pathology reports showing condyloma acuminata. He has a history of this in the same region that he states this was removed many years ago. We discussed that while recurrence rate is low especially with surgical excision there was always a possibility that this may return. He understands this. No longer requiring follow up, can follow up as needed with any concerns in the future. Coding Level of Care Code Est Pt Level 3 (82950) Diagnoses Anal warts A63.0
== END 2025-05-11 13:43 | disposition home or self-care (01) ==
LOC: HO.HGS 13:31
PROVIDERS: PCP Internal Medicine
DX: A63.0 Anogenital (venereal) warts (principal)
CPT/HCPCS: 99213

== ENCOUNTER 2025-05-18 09:32 | Outpatient (REF) | payer OTHER, SELFPAY ==
--- OUTSIDE RECORDS SUMMARY | 2025-05-15 23:59 | XMS_ITS | Continuity of Care Document ---
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 Planning Name Role Phone Jeff Guevara MD Primary Care Physician [place] [facility] [place]): [place] 05/15/25 [facility] [address] [place] [id number]- Attending Physician: Chet Cheng MD Admitting Physician: Chet Cheng MD Referring Physician: Jeff Guevara MD Encounter Type: Pre-OutPatient One Time Allergies, Adverse Reactions, Alerts Substance Criticality Severity Reaction Reaction Severity Status amoxicillin Active penicillin Active Medications albuterol CFC free 90 mcg/inh inhalation aerosol 180 mcg, 2, puffs, Inhalation, Every 4 hours, PRN, Wheezing/shortness of breath, bronchospastic cough, # 8 Gm, Refills 0, Tot. Refills 0, Maintenance, 02/09/25 12:28:00 PM EDT, Inhaler, Route to Pharmacy Electronically, [id number], [facility], 173, cm, 02/10/2512:14:00 EDT, Height, 92.9, kg, 01/30/25 12:32:00 EDT, Dry Weight Start Date: 02/09/25 Stop Date: 03/11/25 Status: Ordered Medication Dispense Status: Completed Quantity: 8.0 Unit: g Total Allowed Fills: 1 Fills Dispensed: 0 amiodarone 200 mg oral tablet 200 mg, 1, tablet, By Mouth, 2 times a day, # 38 tablet, Refills 0, Tot. Refills 0, Maintenance, 02/09/25 10:48:00 AM EDT, Route to Pharmacy Electronically, [facility], Partial fill upon patient request if the prescription is for a schedule II opioid drug., 173, cm, 02/09/25 8:55:00 EDT, Height, 92.9, kg, 01/30/25 12:32:00 EDT, Dry Weight Start Date: 02/09/25 Stop Date: 02/28/25 Status: Ordered Medication Dispense Status: Completed Quantity: 38.0 Unit: tablet Total Allowed Fills: 1 Fills Dispensed: 0 apple cider vinegar 425mg apple cider vinegar 425mg, Refills 0, Maintenance, 12/26/24 12:19:00 PM EDT, Supply Start Date: 12/26/24 Status: Ordered Medication Dispense Status: Completed Total Allowed Fills: 1 Fills Dispensed: 0 aspirin 81 mg oral capsule 1 capsule = 81 mg, By Mouth, Every 24 hours, 0 Refills, Maintenance, 12/16/24 8:37:00 AM EDT, Partial fill upon patient request if the prescription is for a schedule II opioid drug. Start Date: 12/16/24 Status: Ordered Medication Dispense Status: Completed Total Allowed Fills: 1 Fills Dispensed: 0 atorvastatin 80 mg oral tablet 1 tablet = 80 mg, By Mouth, Daily, 0 Refills, Maintenance, 12/16/24 8:36:00 AM EDT, Partial fill upon patient request if the prescription is for a schedule II opioid drug. Start Date: 12/16/24 Status: Ordered Medication Dispense Status: Completed Total Allowed Fills: 1 Fills Dispensed: 0 cyclobenzaprine 10 mg oral tablet TAKE 1 TABLET BY MOUTH EVERY 8 HOURS Start Date: 02/23/25 Status: Ordered Medication Dispense Status: Completed Total Allowed Fills: 1 Fills Dispensed: 0 Lantus Inj = 16 units, Subcutaneous Injection, Daily, 0 Refills, Maintenance, 02/09/25 12:33:00 PM EDT, Injection, Partial fill upon patient request if the prescription is for a schedule II opioid drug. Start Date: 02/09/25 Status: Ordered Medication Dispense Status: Completed Total Allowed Fills: 1 Fills Dispensed: 0 Lasix 40 mg oral tablet 40 mg, 1, tablet, By Mouth, Daily, # 2 tablet, Refills 0, Tot. Refills 0, Maintenance, 02/09/25 12:24:00 PM EDT, Route to Pharmacy Electronically, [facility], Partial fill upon patient request if the prescription is for a schedule II opioid drug., 173, cm, 02/09/25 12:14:00 EDT, Height,92.9, kg, 01/30/25 12:32:00 EDT, Dry Weight Start Date: 02/09/25 Stop Date: 02/11/25 Status: Ordered Medication Dispense Status: Completed Quantity: 2.0 Unit: tablet Total Allowed Fills: 1 Fills Dispensed: 0 lisinopril 10 mg oral tablet 10 mg, 1, tablet, By Mouth, Daily, Refills 0, Maintenance, 12/16/24 8:36:00 AM EDT, Partial fill upon patient request if the prescription is for a schedule II opioid drug. Start Date: 12/16/24 Status: Ordered Medication Dispense Status: Completed Total Allowed Fills: 1 Fills Dispensed: 0 magwell vitamin d3, mag, zinc magwell vitamin d3, mag, zinc, Refills 0, Maintenance, 12/26/24 12:18:00 PM EDT, Supply Start Date: 12/26/24 Status: Ordered Medication Dispense Status: Completed Total Allowed Fills: 1 Fills Dispensed: 0 Metformin = 1,000 mg, By Mouth, 2 times a day, # 60 tablet, 0 Refills, Maintenance, 12/16/24 8:36:00 AM EDT, Partial fill upon patient request if the prescription is for a schedule II opioid drug. Start Date: 12/16/24 Stop Date: 03/11/25 Status: Ordered Medication Dispense Status: Completed Quantity: 60.0 Unit: tablet Total Allowed Fills: 1 Fills Dispensed: 0 metoprolol 25 mg oral tablet 50 mg, 2, tablet, By Mouth, 2 times a day, # 120 tablet, Refills 0, Tot. Refills 0, Maintenance, 02/09/25 12:26:00 PM EDT, Route to Pharmacy Electronically, [facility], Partial fill upon patient request if the prescription is for a schedule II opioid drug., 173, cm, 02/09/25 12:14:00 EDT, Height, 92.9, kg, 01/30/25 12:32:00 EDT, Dry Weight Start Date: 02/09/25 Stop Date: 03/11/25 Status: Ordered Medication Dispense Status: Completed Quantity: 120.0 Unit: tablet Total Allowed Fills: 1 Fills Dispensed: 0 Multivitamin 0 Refills, Maintenance, 12/26/24 12:17:00 PM EDT, Partial fill upon patient request if the prescription is for a schedule II opioid drug. Start Date: 12/26/24 Status: Ordered Medication Dispense Status: Completed Total Allowed Fills: 1 Fills Dispensed: 0 multivitamin c, reza,elderberyy,echinacea,turmeric,b6,zinc multivitamin c, reza,elderberyy,echinacea,turmeric,b6,zinc, Refills 0, Maintenance, 12/26/24 12:19:00 PM EDT, Supply Start Date: 12/26/24 Status: Ordered Medication Dispense Status: Completed Total Allowed Fills: 1 Fills Dispensed: 0 nicotine 21 mg/24 hr transdermal film, extended release 1 patch, Topically, Daily, for 30 days, # 30 patch, 3 Refills, Acute 08/19/25 7:09:00 AM EST, 04/21/25 7:09:00 AM EDT, Patch, [id number], Partial fill upon patient request if the prescription is for a schedule II opioid drug., 1 patch Topically Daily,x30 days, 173, cm, 02/23/25 16:49:00 EDT,Height, 92.9, kg, 01/30/25 12:32:00 EDT, Dry Weight Start Date: 04/21/25 Stop Date: 08/19/25 Status: Ordered Medication Dispense Status: Completed Quantity: 30.0 Unit: patch Total Allowed Fills: 4 Fills Dispensed: 0 nicotine 4 mg oral transmucosal lozenge 1 lozenge = 4 mg, By Mouth, Every 2 hours, for 4 week(s), use in combination with nicotine patch, #144 lozenge, 1 Refills, Acute 06/16/25 7:09:00 AM EST, 04/21/25 7:09:00 AM EDT, [id number], Partial fill upon patient request if the prescription is for a schedule II opioid drug., 1 lozenge By Mouth Every 2 hours,x4 week(s),Instr:use in combination with nicotine patch, 173, cm, 02/23/25 16:49:00 EDT, Height, 92.9, kg, 01/30/25 12:32:00 EDT, Dry Weight Start Date: 04/21/25 Stop Date: 06/16/25 Status: Ordered Medication Dispense Status: Completed Quantity: 144.0 Unit: lozenge Total Allowed Fills: 2 Fills Dispensed: 0 Probiotic Formula By Mouth, Daily, 0 Refills, Maintenance, 12/26/24 12:17:00 PM EDT, Partial fill upon patient requestif the prescription is for a schedule II opioid drug. Start Date: 12/26/24 Status: Ordered Medication Dispense Status: Completed Total Allowed Fills: 1 Fills Dispensed: 0 tamsulosin 0.4 mg oral capsule 0.4 mg, 1, capsule, By Mouth, Daily, # 30 capsule, Refills 0, Tot. Refills 0, Maintenance, 02/09/25 12:27:00 PM EDT, Route to Pharmacy Electronically, [facility], Partial fill upon patient request if the prescription is for a schedule II opioid drug., 173, cm, 02/09/25 12:14:00 EDT, Height, 92.9, kg, 01/30/25 12:32:00 EDT, Dry Weight Start Date: 02/09/25 Stop Date: 03/11/25 Status: Ordered Medication Dispense Status: Completed Quantity: 30.0 Unit: capsule Total Allowed Fills: 1 Fills Dispensed: 0 ja up lions jorge complex ja up lions jorge complex, Refills 0, Maintenance, 12/26/24 12:20:00 PM EDT, Supply Start Date: 12/26/24 Status: Ordered Medication Dispense Status: Completed Total Allowed Fills: 1 Fills Dispensed: 0 Problem List Condition Confirmation Course Effective Dates Status Health St atus Informant CAD in false pass artery Confirmed Active HLD (hyperlipidemia) Confirmed Active HTN (hypertension) Confirmed Active Obese class I Confirmed Active Current every day smoker Confirmed Active DM2 (diabetes mellitus, type 2) Confirmed Active Social History Social History Type Response Sex Sex Representation Male (finding) Cardiology Outpatient Note * Conrad Bennett MD: REVIEW Conrad Bennett MD: REVIEW, SIGN Conrad Bennett MD: SIGN, MODIFY Conrad Bennett MD R: MODIFY, SIGN, VERIFY Event Display: Cardiology Note Office Authored Date: [id number] Patient: SRIDHAR LIM Age: 65 years Sex: Male : 1960 Associated Diagnoses: None Author: Elisha Stapleton A Visit Information Tobacco Treatment Follow up BASIL History of Present Illness 65 y/o male with DMT2, HTN, HLD, BPH, CABG x2 01/30/25 was called today to follow up for tobacco treatment. While admitted to the hospital he was enrolled in the STOP NPT3 study and randomized to the intervention arm of the study. Patient was discharged on 02/09. Our last check in was on 03/03 and at that point the patient was reporting he was still smoke free from the hospital. Today he reports thathe has returned to smoking following a vacation weekend with friends that smoke. He is not back to smoking 1ppd but is at about 1/2ppd and interested in hearing about options for tobacco treatment tools. After discussion of options he would like to start using 21mg nicotine patch and 4mg lozenge. He plans to start there but I also told him he may feel more comfortable with a higher dose patch like 28mg or 35mg and to call me after he has tried the patch. He reports having used it a long time ago and it didn't do much for him. We discussed proper, safe and effective use of the NRT. We also discussed the addition of Chantix in the future if he continues to have trouble staying smoke free. We discussed basic coping techniques and skills. He reports his major smoking trigger is when he isworking on projects at home, he always smokes after he completes a project while he plans his next step or project. He plans to start using the NRT and use these products as he cuts down over the next two weeks then we will meet to discuss next steps of quitting. He does not feel he is ready for a quit date today and wants to see how the NRT makes him feel. Past Medical History Problem list All Problems CAD in false pass artery / SNOMED CT 83596985 / Confirmed Current every day smoker / SNOMED CT 3156815660 / Confirmed DM2 (diabetes mellitus, type 2) / SNOMED CT 483843840 / Confirmed HLD (hyperlipidemia) / SNOMED CT 55716551 / Confirmed HTN (hypertension) / SNOMED CT 1489400569 / Confirmed Obese class I / SNOMED CT 636972756350835 / Confirmed Allergies Allergic Reactions (Selected) Severity Not Documented Amoxicillin- No reactions were documented. Penicillin- No reactions were documented. Current medications (Selected) Prescriptions Prescribed Lasix 40 mg oral tablet: 40 mg, 1, tablet, By Mouth, Daily, # 2 tablet, Refills 0, Tot. Refills 0, Maintenance, 02/09/25 12:24:00 EDT, Route to Pharmacy Electronically, [facility], Partial fill upon patient request if the prescription is for a schedule II opioid... albuterol CFC free 90 mcg/inh inhalation aerosol: 180 mcg, 2, puffs, Inhalation, Every 4 hours, PRN, Wheezing/shortness of breath, bronchospastic cough, # 8 Gm, Refills 0, Tot. Refills 0, Maintenance, 02/09/25 12:28:00 EDT, Inhaler, Route to Pharmacy Electronically, [id number]... amiodarone 200 mg oral tablet: 200 mg, 1, tablet, By Mouth, 2 times a day, # 38 tablet, Refills 0, Tot. Refills 0, Maintenance, 02/09/25 10:48:00 EDT, Route to Pharmacy Electronically, [facility], Partial fill upon patient request if the prescription is for a schedule... metoprolol 25 mg oral tablet: 50 mg, 2, tablet, By Mouth, 2 times a day, # 120 tablet, Refills 0, Tot. Refills 0, Maintenance, 02/09/25 12:26:00 EDT, Route to Pharmacy Electronically, [facility], Partial fill upon patient request if the prescription is for a schedule... tamsulosin 0.4 mg oral capsule: 0.4 mg, 1, capsule, By Mouth, Daily, # 30 capsule, Refills 0, Tot. Refills 0, Maintenance, 02/09/25 12:27:00 EDT, Route to Pharmacy Electronically, [facility], Partial fill upon patient request if the prescription is for a schedule II op... Documented Medications Documented Lantus Inj: = 16 units, Subcutaneous Injection, Daily, 0 Refills, Maintenance, 02/09/25 12:33:00 EDT, Injection, Partial fill upon patient request if the prescription is for a schedule II opioid drug. Metformin: = 1,000 mg, By Mouth, 2 times a day, # 60 tablet, 0 Refills, Maintenance, 12/16/24 8:36:00 EDT, Partial fill upon patient request if the prescription is for a schedule II opioid drug. Multivitamin: 0 Refills, Maintenance, 12/26/24 12:17:00 EDT, Partial fill upon patient request if the prescription is for a schedule II opioid drug. Probiotic Formula: By Mouth, Daily, 0 Refills, Maintenance, 12/26/24 12:17:00 EDT, Partial fill upon patient request if the prescription is for a schedule II opioid drug. apple cider vinegar 425mg: apple cider vinegar 425mg, Refills 0, Maintenance, 12/26/24 12:19:00 EDT, Supply aspirin 81 mg oral capsule: 1 capsule = 81 mg, By Mouth, Every 24 hours, 0 Refills, Maintenance, 12/16/24 8:37:00 EDT, Partial fill upon patient request if the prescription is for a schedule II opioid drug. atorvastatin 80 mg oral tablet: 1 tablet = 80 mg, By Mouth, Daily, 0 Refills, Maintenance, :36:00 EDT, Partial fill upon patient request if the prescription is for a schedule II opioid drug. cyclobenzaprine 10 mg oral tablet: TAKE 1 TABLET BY MOUTH EVERY 8 HOURS lisinopril 10 mg oral tablet: 10 mg, 1, tablet, By Mouth, Daily, Refills 0, Maintenance, 12/16/24 8:36:00 EDT, Partial fill upon patient request if the prescription is for a schedule II opioid drug. magwell vitamin d3, mag, zinc: magwell vitamin d3, mag, zinc, Refills 0, Maintenance, 12/26/24 12:18:00 EDT, Supply multivitamin c, reza,elderberyy,echinacea,turmeric,b6,zinc: multivitamin c, reza,elderberyy,echinacea,turmeric,b6,zinc, Refills 0, Maintenance, 12/26/24 12:19:00 EDT, Supply ja up rain patel complex: ja up rain patel complex, Refills 0, Maintenance, 12/26/24 12:20:00 EDT, Supply Social History Social History No qualifying data available. . Impression and Plan Impression: 1. Smoking 2. STOP NPT3 Study 3. CABG x2 4. HTN 5. HLD 6. BPH Plan: 1. Patient reports since our last conversation on 03/03 he has returned to smoking 1/2ppd. He plans to start using the 21mg nicotine patch and 4mg lozenge. Will request these medication from Dr. Bennett. 2. basic coping techniques and skills were reviewed. 3. Will follow up with patient on 04/29 @ 4pm. Time Spent with patient:25 minutes * Sabrina BECKHAM, Conrad R: PERFORM Event Display: Cardiology Note Office Authored Date: [id number] I reviewed the above. I will prescribe the medications as recommended. He definitely needs continuing follow-up. I did not see the patient. No bill can be submitted. Patient Care team information Care Team Personnel Name: Callie Frias RN Position: S RN Member Role: Primary Care Nurse Name: Giuliana Moore RN Position: S RN Member Role: Primary Care Nurse Name: Ismael BECKHAM, Jeff Palomino Position: Reference Physician Member Role: PCP Address: [address] [place] [address] [address] [place] [address] Telecom: Care Team Related Persons Name: DUSTIN LIM Insurance Providers Guarantor name: SRIDHAR CARINA Health Plan Information #: 1 Payer: [employer] NON HMO PLANS Payer Identifier: NA Member Number: [id number] Group Number: [id number] Subscriber Identifier: [id number] Relationship to Subscriber: self Coverage Type: Managed Care (Private) Coverage Verification Date: KRANTHI Telecom: NA Address: NA
[2025-05-18 17:29] LABS: Appearance Urine Clear; Glucose Urine UA Negative (Negative); PH 5.5 (5.0-9.0); Specific Gravity - Urine 1.010 (1.005-1.025)
== END 2025-05-18 09:33 | disposition home or self-care (01) ==
LOC: HO.LAB 09:32
PROVIDERS: PCP Physician Assistant Medical; Visit Provider Physician Assistant Medical
DX: Z00.00 Encounter for general adult medical examination without abnormal findings (principal); E11.9 Type 2 diabetes mellitus without complications; I10 Essential (primary) hypertension; M54.9 Dorsalgia, unspecified; Z79.84 Long term (current) use of oral hypoglycemic drugs
CPT/HCPCS: 81003; 82043; 82570; 83036; 96127

== ENCOUNTER 2025-05-18 09:32 | Outpatient (AMB) | payer OTHER, SELFPAY ==
--- NOTE | 2025-05-18 09:13 | A.OFFPC_ITS ---
Vital Signs 05/18/25 09:35 05/18/25 10:06 Height 5 ft 6 in Weight 213 lb BMI 34.4 BP 142/82 H 118/60 Blood Pressure Location Rt brachial Position Sitting Respiration 14 Pulse 62 Pulse Source Pulse Oximeter Temp 97.6 F Temp Source Temporal Artery Scan Pulse Oximetry (%) 97 Intake Visit Reasons: 3 Month follow up Trial Management Associate Required: No Accompanied by: Self / Same As Patient Allergies amoxicillin (AMOXICILLIN) Allergy (Unknown, Verified 05/18/25 10:06) HIVES monosodium glutamate (MSG) Allergy (Unknown, Verified 05/18/25 10:06) NAUSEA Penicillins (PENICILLINS) Allergy (Unknown, Verified 05/18/25 10:06) HIVES Medication List - Last Reconciled 05/18/25 by Ruby Dye PA-C acetaminophen 500 mg PO Q6H PRN albuterol sulfate 90 mcg/actuation 2 puffs inhalation Q4H PRN aspirin 81 mg PO DAILY atorvastatin 80 mg PO DAILY cholecalciferol (vitamin D3) 25 mcg PO DAILY cyclobenzaprine 10 mg PO Q8H lisinopril 10 mg PO DAILY lorazepam 0.5 mg PO BEDTIME PRN metformin 1,000 mg PO BID metoprolol tartrate 50 mg (2 x 25 mg) PO BID multivitamin 1 tab PO DAILY tamsulosin (Flomax) 0.4 mg PO BEDTIME 30 days Tobacco use date assessed: 02/13/25 Dental Screening Dental Screen Date: 11/14/24 HPI 3 Month follow up HPI Details The patient is a 65-year-old male presenting for a three-month follow- up for diabetes. His hemoglobin A1c has increased from 6.6% to 7.2% over the last three months. The patient attributes this increase to dietary non- adherence, which has also resulted in weight gain and a recurrence of back soreness. His current medication regimen for diabetes is metformin 1000 mg twice daily. The patient attends rehabilitation twice a week where his blood pressure is monitored and has been good. He denies any chest pain, shortness of breath, or urinary symptoms. Social History - Current nutritional intake: The patien t admits to dietary non-adherence ( cheating ), which has led to weight gain. - Exercise: The patient attends rehabili tation twice a week. [facility] Medical History (Updated 05/18/25 @ 10:12 by Ruby Dye PA-C) Back pain Perianal lesion Postoperative pain Muscle pain, cervical Enlarged prostate Coronary artery disease Hospital discharge follow-up Type 2 diabetes mellitus with hemoglobin A1c goal of less than 7.0% Chelo disease Genital warts Anal warts Mild hypercholesterolemia Malignant neoplasm of urinary bladder (~2018) Hematuria HTN (hypertension) DMII (diabetes mellitus, type 2) [place] disease Nicotine dependence, cigarettes, uncomplicated History of condyloma acuminatum Surgical History History of surgical removal of lesion (~04/30/25) Aortocoronary bypass status History of colonoscopy (~09/06/20) History of umbilical hernia repair (03/11/24) History of transurethral resection of bladder tumor (TURBT) History of vasectomy History of tonsillectomy Family History Mother Thyroid disease Father Diabetes Heart failure Social History Housing: House Alcohol intake: current Alcohol intake frequency: a few times a month Patient Tobacco Use Status: Current everyday Tobacco user Tobacco use type: Cigarette Cigarette Packs Per Day: 1 service: No Current occupational status: employed Cognitive needs: No Hearing needs: No Vision needs: Yes (reading glasses) Questionnaire PHQ-9 Over the last 2 weeks, how often have you been bothered by any of the following problems? 1. Little interest or pleasure in doing things: not at all 2. Feeling down, depressed, or hopeless: not at all 3. Trouble falling or staying asleep, or sleeping too much: not at all 4. Feeling tired or having little energy: not at all 5. Poor appetite or overeating: not at all 6. Feeling bad about yourself - or that you are a failure or have let yourself or your family down: not at all 7. Trouble concentrating on things, such as reading the newspaper or watching television: not at all 8. Moving or speaking so slowly that other people could have noticed. Or the opposite - being so fidgety or restless that you have been moving around a lot more than usual: not at all 9. Thoughts that you would be better off or of hurting yourself in some way: not at all Total score: 0 Depression Screening Interpretation: Negative Depression Screening Done: Yes 81803 - PHQ-9 Billing: Yes Source: Developed by Drs. Bhavin Diaz, Radha Duenas, Jarrett Liriano and colleagues, with an educational maureen from [employer]. Thrive Questionnaire Date Thrive assessed: 11/14/24 I am a: Patient What is your living situation today?: I have a steady place to live Within the past 12 months, did the food you bought not last and you didn't have the money to get more?: Never true Within the past 12 months, did you worry whether your food would run out before you got money to buy more?: Never true Do you have trouble paying for medicines?: No Do you have trouble getting transportation to medical appointments?: No Do you have trouble paying your heating and electricity bill?: No Do you have trouble taking care of your child, family member or friend?: No Do you have trouble with day-to-day activities such as bathing, preparing meals, shopping, managing finances, etc.?: No Are you currently unemployed and looking for a job?: No Are you interested in more education?: No Please select the resources that you would like help with: None THRIVE Score: 0 AUDIT C Alcohol Use Questionnaire (AUDIT-C) 1. How often do you have a drink containing alcohol?: 2-4 times a month 2. How many drinks containing alcohol do you have on a typical day when you are drinking?: 1 or 2 3. How often do you have six or more drinks on one occasion?: Never Total Score: 2 Score Reviewed/Action Taken: No HANNA-7 AMB Questionnaire HANNA-7 Date HANNA - 7 assessed: 02/13/25 Feeling nervous, anxious, or on edge: 0 = Not at all Not being able to stop or control worryin = Not at all Worrying too much about different things: 0 = Not at all Trouble relaxin = Not at all Being so restless that it is hard to sit still: 0 = Not at all Becoming easily annoyed or irritable: 0 = Not at all Feeling afraid as if something awful might happen: 0 = Not at all Total HANNA-7 score (0-4 normal; 5-9 mild; 10-14 moderate; 15-21 severe): 0 Source: Developed by Drs. Bhavin Diaz, Radha Duenas, Jarrett Liriano and colleagues, with an educational maureen from [employer]. HANNA-7 Assessment Billing HANNA-7 Assessment Tool: HANNA-7 Assessment 60346 Review of Systems Const Details: - General: Reports weight gain. - Cardiovascular: Denies chest pain. - Respiratory: Denies shortness of breath. - Genitourinary: Denies urinary symptoms. - Musculoskeletal: Reports back soreness. All systems reviewed & are unremarkable except as noted in HPI and below Physical exam (Primary Care) Vital Signs: Last Vital Signs Temp 97.6 F 05/18/25 09:35 Pulse 62 05/18/25 09:35 Resp 14 05/18/25 09:35 BP 142/82 H 05/18/25 09:35 Pulse Ox 97 05/18/25 09:35 Care Plan Goal for BP management: <140/90 at Goal BMI result Body Mass Index 34.4 BMI Assessment/Plan discussion: High BMI High, discussed plan: lifestyle, weight reduction, dietary, physical activity, alcohol moderation and other Tobacco/Smoking Status: Tobacco use Status Tobacco use date assessed 02/13/25 05/18/25 09:14 Patient Tobacco Use Status Current everyday Tobacco 05/18/25 09:14 Tobacco use type Cigarette 05/18/25 09:14 PHQ-9: PHQ-9 Score PHQ-9: Total score 0 05/18/25 09:53 Depression Screening Interpretation: Negative Thrive Assessment: Date of Thrive Assessment Date Thrive assessed 11/14/24 05/18/25 09:14 Const Other: Appearance: Alert. Oriented X3. No acute distress. Head: Normal external exam. Normocephalic. Atraumatic. Eyes: Pupils are equal, round, and reactive to light. Extraocular movements intact. Conjunctiva and sclera normal. Eyelids normal. Throat: Pharynx normal. Uvula midline. Moist mucous membranes. Neck: Normal inspection. Neck supple. Full range of motion. Cardiovascular: Normal heart rate and rhythm. Respiratory: No respiratory distress. Painless inspiration. Back: Full range of motion noted. Skin: Skin warm and dry. Normal skin color. Extremities: Extremities exhibit normal range of motion. Results AMB Hemoglobin A1c AMB Hemoglobin A1c 7.2 % Last Edit by CANDIDO Shah on 05/18/25 09:53 Results Reviewed Results Reviewed: Laboratory Last Values Hgb A1c (Clinic) 7.2 % (4.0-6.0) H 05/18/25 09:47 - Labs: Hemoglobin A1c is 7.2%, increased from 6.6% three months prior. - Tests: Urine microalbumin was last performed in the previous year but has not been done in the current year. Coding Level of Care Code Est Pt Level 4 (30674) Complex EM visit Add On G2211 Diagnoses Type 2 diabetes mellitus with hemoglobin A1c goal of less than 7.0% E11.9 HTN (hypertension) I10 Back pain M54.9 Additional Codes HANNA-7 Assessment Billing - HANNA-7 Assessment Tool: HANNA-7 Assessment 24086 ([id number]) PHQ-9 - 08409 - PHQ-9 Billing: Yes ([id number]) Assessment & Plan Assessment & Plan (1) Type 2 diabetes mellitus with hemoglobin A1c goal of less than 7.0%: Code(s): E11.9 - Type 2 diabetes mellitus without complications Category: Medical Plan: The patient's Hemoglobin A1c has risen to 7.2% from 6.6% in three months, which he attributes to dietary nonadherence. He declined the addition of injectable medications to assist with weight loss and glycemic control, preferring to focus on improving his diet. He will continue his current regimen of metformin 1000 mg twice a day. A urine sample for microalbumin will be collected today for annual diabetic kidney disease screening. Follow-up is scheduled in three months for his annual exam, with a goal A1c of 7.0% or lower. (2) HTN (hypertension): Code(s): I10 - Essential (primary) hypertension Category: Medical Plan: The patient's blood pressure was initially elevated but improved to 118/60 mmHg on recheck. He reports good blood pressure readings at his twice-weekly rehabilitation sessions. Continue current management and monitoring. (3) Back pain: Code(s): M54.9 - Dorsalgia, unspecified Category: Medical Plan: The patient reports a recurrence of back soreness, which he associates with recent weight gain. Management will focus on addressing weight gain through improved dietary habits. Plan Plan Patient was informed and verbally consented to the use of an ambient scribe for clinic note documentation during this visit. 1. Type 2 Diabetes Mellitus The patient's Hemoglobin A1c has risen to 7.2% from 6.6% in three months, which he attributes to dietary nonadherence. He declined the addition of injectable medications to assist with weight loss and glycemic control, preferring to focus on improving his diet. He will continue his current regimen of metformin 1000 mg twice a day. A urine sample for microalbumin will be collected today for annual diabetic kidney disease screening. Follow-up is scheduled in three months for his annual exam, with a goal A1c of 7.0% or lower. 2. Hypertension The patient's blood pressure was initially elevated but improved to 118/60 mmHg on recheck. He reports good blood pressure readings at his twice-weekly rehabilitation sessions. Continue current management and monitoring. 3. Back Pain The patient reports a recurrence of back soreness, which he associates with recent weight gain. Management will focus on addressing weight gain through improved dietary habits. I discussed with the patient the increase in his hemoglobin A1c from 6.6% to 7.2% over the past three months, which we both attributed to recent dietary nonadherence. I offered the option of adding an injectable medication, which could also aid in weight loss, but he declined, expressing a desire to first focus on improving his diet. We agreed on a target A1c of 7.0% or below for his next visit in three months, which will be his annual physical. I also explained the importance of the annual urine microalbumin test for monitoring kidney health in diabetes, and we arranged for a sample to be collected today. Orders: Orders Microalbumin, Random (w Creat) Today E11.9 - Type 2 diabetes mellitus without complications AMB Hemoglobin A1c Today E11.9 - Type 2 diabetes mellitus without complications UA CC w/rflx Micro + Cult Today Z00.00 - Encounter for general adult medical examination without abnormal findings Patient Instructions: - Continue taking your metformin, two 500 mg tablets twice a day, as prescribed. - Please provide a urine sample today before you leave the office. - Work on making healthier diet choices to help lower your blood sugar and weight. - Schedule your next appointment in three months, which will be for your yearly physical exam. - Continue attending your rehabilitation sessions twice a week.
[2025-05-18 09:35] VITALS: BP 142/82; PULSE 62; RESP 14; TEMP 36.4; O2SAT 97; BMI 34.4
[2025-05-18 10:06] VITALS: BP 118/60
--- OUTSIDE RECORDS SUMMARY | 2025-05-18 10:42 | XMS_ITS | Clinical Summary ---
Author Organization [facility] Address [address] [phone] Phone Care Team Providers Care Mottle Lay Up Operator Name Role Phone Jeff Guevara MD Primary Care Provid er Social History Tobacco Use Types Packs/Day Years [...] PPO AETNA PPO AETNA PPO Care Teams Mottle Lay Up Operator Relationship Specialty Start Date End Date Jeff Guevara MD [address] [place] [id number] PCP - General Internal Medicine 02/03/25 Additional Source Comments The information contained in this document represents components of the legal health record. It is not the complete legal health record.[facility]
== END 2025-05-18 10:03 | disposition home or self-care (01) ==
LOC: HO.HMCSH 09:32
PROVIDERS: PCP Physician Assistant Medical; Visit Provider Physician Assistant Medical
DX: E11.9 Type 2 diabetes mellitus without complications (principal); I10 Essential (primary) hypertension; M54.9 Dorsalgia, unspecified

== ENCOUNTER 2025-05-27 13:38 | Outpatient (AMB) | payer OTHER, SELFPAY ==
[2025-05-27 13:41] VITALS: BP 122/68; PULSE 74; BMI 34.2
--- NOTE | 2025-05-27 13:41 | A.OFFVIS_ITS ---
Vital Signs 05/27/25 13:41 Height 5 ft 6 in Weight 211 lb 10.3 oz BMI 34.2 BP 122/68 Blood Pressure Location Lt brachial Position Sitting Pulse 74 Pulse Source Pulse Oximeter Intake Visit Reasons: 3 mth f/up Allergies amoxicillin (AMOXICILLIN) Allergy (Unknown, Verified 05/18/25 10:06) HIVES monosodium glutamate (MSG) Allergy (Unknown, Verified 05/18/25 10:06) NAUSEA Penicillins (PENICILLINS) Allergy (Unknown, Verified 05/18/25 10:06) HIVES Medication List - Last Reconciled 05/27/25 by Solo Arias MD acetaminophen 500 mg PO Q6H PRN albuterol sulfate 90 mcg/actuation 2 puffs inhalation Q4H PRN aspirin 81 mg PO DAILY atorvastatin 80 mg PO DAILY cholecalciferol (vitamin D3) 25 mcg PO DAILY lisinopril 10 mg PO DAILY lorazepam 0.5 mg PO BEDTIME PRN metformin 1,000 mg PO BID metoprolol tartrate 50 mg (2 x 25 mg) PO BID multivitamin 1 tab PO DAILY tamsulosin (Flomax) 0.4 mg PO BEDTIME 30 days HPI Comments Details: Tawanda returns for follow-up. To recall, he was originally seen in consultation regarding preoperative risk stratification for hernia surgery. That was uneventful. Due to multiple cardiovascular risk factors including obesity, smoking, diabetes, hypertension, dyslipidemia, he underwent further workup which led to diagnostic catheterization and eventually coronary artery bypass surgery. Overall, he is doing fine. He has got no cardiac complaints. However, has gained weight and started smoking again. [facility] Medical History (Updated 05/18/25 @ 10:12 by Ruby Dye PA-C) Back pain Perianal lesion Postoperative pain Muscle pain, cervical Enlarged prostate Coronary artery disease Hospital discharge follow-up Type 2 diabetes mellitus with hemoglobin A1c goal of less than 7.0% Chelo disease Genital warts Anal warts Mild hypercholesterolemia Malignant neoplasm of urinary bladder (~2018) Hematuria HTN (hypertension) DMII (diabetes mellitus, type 2) Chelo disease Nicotine dependence, cigarettes, uncomplicated History of condyloma acuminatum Surgical History History of surgical removal of lesion (~04/30/25) Aortocoronary bypass status History of colonoscopy (~09/06/20) History of umbilical hernia repair (03/11/24) History of transurethral resection of bladder tumor (TURBT) History of vasectomy History of tonsillectomy Family History Mother Thyroid disease Father Diabetes Heart failure Social History Housing: House Alcohol intake: current Alcohol intake frequency: a few times a month Patient Tobacco Use Status: Current everyday Tobacco user Tobacco use type: Cigarette Cigarette Packs Per Day: 1 service: No Current occupational status: employed Cognitive needs: No Hearing needs: No Vision needs: Yes (reading glasses) Review of Systems Const Denies weakness ENT Denies dizziness Card Denies chest pain, Denies chest pain with activity, Denies syncope, Denies rapid heart rate, Denies pedal edema, Denies edema, Denies leg edema, Denies lightheadedness, Denies palpitations, Denies dyspnea, Denies dyspnea on exertion and Denies orthopnea Resp Denies cough, Denies dyspnea and Denies dyspnea on exertion GI Denies hematochezia and Denies change in stool character Musc Denies abnormal gait, Denies muscle cramps, Denies muscle weakness, Denies numbness, Denies radiating pain into limb and Denies tingling Neuro Denies abnormal gait, Denies dizziness, Denies syncope, Denies numbness, Denies tingling and Denies weakness Endo Denies palpitations Physical Exam Vital Signs: Last Vital Signs Pulse 74 05/27/25 13:41 BP 122/68 05/27/25 13:41 BMI result Body Mass Index 34.2 Const General: comfortable and no acute distress Orientation/consciousness: patient oriented x3 HEENT Other: Unremarkable Head: Yes normal to inspection Neck Neck: Yes normal visual inspection Chest Chest palpation & inspection: normal inspection of the chest Resp Auscultation: clear to auscultation bilaterally Cardio Palpation: normal PMI Heart sounds: S1 normal heart sound present, S2 normal heart sound present, no gallops, no murmurs and no rubs GI Palpation (GI): Soft to palpation Back/Spine/Pelvis Other: unremarkable Skin General skin exam: no rashes or lesions noted Neuro General: patient oriented x3 Extrem General: Yes normal to inspection Psych Mental Status: mental status grossly normal Assessment & Plan Assessment & Plan (1) Atherosclerotic cardiovascular disease: Code(s): I25.10 - Atherosclerotic heart disease of [place] coronary artery without angina pectoris Category: Medical (2) HTN (hypertension): Code(s): I10 - Essential (primary) hypertension Category: Medical (3) DMII (diabetes mellitus, type 2): Code(s): E11.9 - Type 2 diabetes mellitus without complications Category: Medical Plan Cardiac studies reviewed. In the echocardiogram, LVEF 55-60%. No wall motion abnormalities. Otherwise, unremarkable. In the exercise stress test, he exercised for 7 METS. Had hypertensive blood pressure response. In the echocardiographic component, posterior/inferolateral wall could not be evaluated well, but otherwise no obvious abnormalities. Coronary CTA-extensive coronary calcification; [id number] stenosis in multiple arteries. FFR functionally significant mid LAD/distal part of mid RCA. There was also widespread disease in addition to the above focal stenosis and recommendation was to pursue cardiac catheterization. Cardiac catheterization with significant disease in the LAD/RCA. Postop echo at [facility]-LVEF 50-55%. Inferolateral hypokinesis. Currently, status post CABG x2. It seems he had some postoperative AFib but then resolved. No absolute indication for anticoagulation unless there is clear recurrence. Otherwise, continue the current regimen including aspirin, beta-blockers and statins. Continue cardiac rehabilitation. Dietary and lifestyle measures to aim for weight loss. Smoking cessation. Discussion Notes I discussed with the patient that he does not require prophylactic antibiotics for his upcoming dental work from a cardiac perspective, as his surgery was a bypass only and did not involve the placement of a prosthetic valve. I advised him to call his dentist to clarify this. I confirmed that an office-based procedure is safe for him. We agreed that he should continue his aspirin. I acknowledged his lifestyle challenges, including weight gain and resumption of smoking, and noted his positive steps in joining a cessation program and working with a supervisor stave cutting. We will follow up in six months and will obtain an echocardiogram at that time. Patient was informed and verbally consented to the use of an ambient scribe for clinic note documentation during this visit. Orders: Orders CA echo transthoracic complete 6 Months I25.10 - Atherosclerotic heart disease of [place] coronary artery without angina pectoris Patient Instructions: - Follow up in the office in 6 months. - An echocardiogram (ultrasound of your heart) will be scheduled for your next visit. - Continue your efforts to quit smoking and manage your weight. - You do not need to take antibiotics before your dental appointment for heart- related reasons. - Please call your dentist to discuss the antibiotic prescription they gave you. - Continue taking your daily aspirin. Coding Level of Care Code Est Pt Level 4 (78669) Complex EM visit Add On G2211 Diagnoses Atherosclerotic cardiovascular disease I25.10 HTN (hypertension) I10 DMII (diabetes mellitus, type 2) E11.9
--- OUTSIDE RECORDS SUMMARY | 2025-05-28 01:41 | XMS_ITS | Clinical Summary ---
Author Organization [facility] Address [address] [phone] Phone Care Team Providers Care Yard Motor Operator Name Role Phone Jeff Guevara MD [...] PPO AETNA PPO AETNA PPO Care Teams Yard Motor Operator Relationship Specialty Start Date End Date Jeff Guevara MD [address] [place] [phone] PCP - General Internal Medicine 02/03/25 Additional Source Comments The information contained in this document represents components of the legal health record. It is not the complete legal health record.[facility]
== END 2025-05-27 14:10 | disposition home or self-care (01) ==
LOC: HO.HCS 13:39
PROVIDERS: PCP Internal Medicine; Visit Provider Internal Medicine
DX: I25.10 Atherosclerotic heart disease of native coronary artery without angina pectoris (principal); I10 Essential (primary) hypertension; E11.9 Type 2 diabetes mellitus without complications
CPT/HCPCS: 99214; G2211

== ENCOUNTER 2025-06-26 08:57 | Outpatient (REF) | payer OTHER, SELFPAY | END 2025-06-26 08:58 | disposition home or self-care (01) | LOC: HO.LAB 08:57 | PROVIDERS: PCP Internal Medicine; Visit Provider Urology | DX: C67.9 Malignant neoplasm of bladder, unspecified (principal); N32.0 Bladder-neck obstruction | CPT/HCPCS: 52000; 81003; 88112 ==

== ENCOUNTER 2025-06-26 08:57 | Outpatient (AMB) | payer OTHER, SELFPAY ==
--- NOTE | 2025-06-26 09:05 | MHC.OFFVIS ---
Intake Visit Reasons: 1Y Cystoscopy/UA(Bladder Ca) Intake Note: Reason for Visit: Cystoscopy(Bladder Ca) Urology Meds: Tamsulosin Blood Thinners: Aspirin Labs: PSA- 0.22(09/08/2024) A1C- 7.2(05/18/2025) Last Cytology: 2021 Imaging: None Last PVR: None URO G-HD Cystoscope LOT [id number] EXP12/16/2027 Allergies amoxicillin (AMOXICILLIN) Allergy (Unknown, Verified 05/18/25 10:06) HIVES monosodium glutamate (MSG) Allergy (Unknown, Verified 05/18/25 10:06) NAUSEA Penicillins (PENICILLINS) Allergy (Unknown, Verified 05/18/25 10:06) HIVES HPI Comments Details: Kelton is a pleasant male. He is a patient of Dr. Coughlin. He is seen for the following urologic conditions - bladder cancer low-grade superficial - lower urinary tract symptoms - balanitis Twelve month surveillance cystoscopy Mild bladder trabeculation Prior trial Flomax Recent CT scan taken after CABG and respiratory failure 01/30 - punctate stone right kidney, small cyst, bladder normal Discussion regarding urinary flow Unable to urinate greater than 12 in Indicative of Q max less than 10 cc Discussed prostate treatment options Recommend plasma button incision given size of prostate and low PSA Bladder cancer low-grade superficial November 2018 Initial diagnosis November 2018 Risk factors - organic chemical exposure - acetone and toluene many years ago, smoking Procedure - TURBT - November 2018 low-grade superficial Cytology - November 2018. 05/30 atypical Cystoscopy - 10/27 NAD, 05/29 NAD, 05/30 NAD Prior PSA 05/29 0.2 Therapeutic plan - move to follow-up 12 months Prior balanitis responsive to topical clotrimoxazole [facility] Medical History (Updated 05/18/25 @ 10:12 by Ruby Dye PA-C) Back pain Perianal lesion Postoperative pain Muscle pain, cervical Enlarged prostate Coronary artery disease Hospital discharge follow-up Type 2 diabetes mellitus with hemoglobin A1c goal of less than 7.0% Chelo disease Genital warts Anal warts Mild hypercholesterolemia Malignant neoplasm of urinary bladder (~2018) Hematuria HTN (hypertension) DMII (diabetes mellitus, type 2) Chelo disease Nicotine dependence, cigarettes, uncomplicated History of condyloma acuminatum Surgical History History of surgical removal of lesion (~04/30/25) Aortocoronary bypass status History of colonoscopy (~09/06/20) History of umbilical hernia repair (03/11/24) History of transurethral resection of bladder tumor (TURBT) History of vasectomy History of tonsillectomy Family History Mother Thyroid disease Father Diabetes Heart failure Social History Housing: House Alcohol intake: current Alcohol intake frequency: a few times a month Patient Tobacco Use Status: Current everyday Tobacco user Tobacco use type: Cigarette Cigarette Packs Per Day: 1 service: No Current occupational status: employed Cognitive needs: No Hearing needs: No Vision needs: Yes (reading glasses) Review of Systems Const Denies chills and Denies fever(s) Card Reports no additional complaints and Denies syncope Resp Denies cough GI Denies abdominal pain and Denies heartburn Reports as per HPI and Denies change in libido Neuro Denies syncope Psych Denies change in libido Endo Denies change in libido Physical Exam Const General: cooperative, healthy appearing, comfortable and no acute distress Orientation/consciousness: patient oriented x3 HEENT Face and sinus: Yes normal facial exam Mouth: moist mucous membranes Neck Neck: Yes normal visual inspection, Yes full ROM and Yes trachea midline Chest Chest palpation & inspection: normal inspection of the chest Resp Effort & Inspection: normal respiratory effort, able to speak in complete sentences and no respiratory distress GI Inspection: Yes normal to inspection Back/Spine/Pelvis Cervical Spine: normal cervical lordosis Thoracic/Lumbar Spine: thoracic and lumbar spine normal to inspection Skin General skin exam: no rashes or lesions noted Neuro General: patient oriented x3, gait normal, tone normal and moves all extremities Extrem General: Yes normal to inspection and Yes capillary refill normal Office Procedures Cystoscopy Consent Discussed risk and benefit or proposed procedure with the patient. Information consent for procedure given to the patient. Discussed technical aspects, risks, benefits and alternatives in full. Addressed all of the patient's questions and concerns regarding the procedure. The patient demonstrated knowledge and understanding. They wish to proceed with this procedure. Preparation The patient was prepped in the usual manner. A fuel cell designer was present and in the room. Genitalia was prepped with betadine solution in a sterile manner. Lidocaine Jelly 2% was placed into the urethra and 16Fr flexible Olympus cystoscope was inserted into the meatus after adequate lubrication. Procedure Consent confirmed Genitalia prepped and draped using topical antiseptic and lidocaine jelly Clamp placed on penile glans to allow adequate dwell contact time with anesthetic Cystoscopy performed using a sterile disposable Urovue digital 16 [place] cystoscope Meatus circumcised v Urethra anterior and posterior urethra normal Prostatic Urethra bladder outlet obstruction mild crowding small prostate Bladder examination with retroflexion of cystoscope Bladder Orifices normal shape and position Bladder Capacity Normal Trabeculations Grade 0 Cellule Formation None Diverticulum Formation None Mucosal Erythema None Bladder Tumor None Patient tolerated procedure [id number] DISPOSABLE SCOPE URO-G FLEXIBLE SCOPE Procedure code (CPT) selection complete Office Meds lidocaine HCl 2 % mucosal jelly in applicator Performing Provider: Nathan Borja MD Performing Location: [facility] Administered by: Merrick Huston LPN on 06/26/25 09:34 Dose Route Admin Location Dispensed Lot Number Expiration Date [facility][NOTE 3] [employer] 10 mL intra-urethral 10 mL nitrofurantoin monohydrate/macrocrystals 100 mg capsule Performing Provider: Nathan Borja MD Performing Location: [facility] Administered by: Merrick uHston LPN on 06/26/25 09:34 Dose Route Admin Location Dispensed Lot Number Expiration Date [place] [employer] 100 mg PO 1 cap Results AMB Urinalysis, Automated UA Leukoctes 0 Javier/uL Last Edit by CANDIDO Moreno on 06/26/25 09:17 UA Nitrite Negative Last Edit by CANDIDO Moreno on 06/26/25 09:17 UA Urobilinogen 0.2 mg/dL Last Edit by CANDIDO Moreno on 06/26/25 09:17 UA Protein 0 mg/dL Last Edit by CANDIDO Moreno on 06/26/25 09:17 UA pH 6.0 Last Edit by CANDIDO Moreno on 06/26/25 09:17 UA Blood 0 Rex/uL Last Edit by CANDIDO Moreno on 06/26/25 09:17 UA Specific [place]ododendron 1.020 Last Edit by CANDIDO Moreno on 06/26/25 09:17 UA Ketone Negative Last Edit by Jenny Obando RMA on 06/26/25 09:17 UA Bilirubin 0 mg/dL Last Edit by Jenny Obando RMA on 06/26/25 09:17 UA Glucose 0 mg/dL Last Edit by Jenny Obando, RMA on 06/26/25 09:17 Results Reviewed Results Reviewed: Laboratory Last Values Urine pH (Auto) 6.0 06/26/25 09:13 Specific Rhododendron (Auto) 1.020 06/26/25 09:13 Urine Protein (Auto) 0 mg/dL 06/26/25 09:13 Glucose (UA)(Auto) 0 mg/dL 06/26/25 09:13 Urine Ketones (Auto) Negative 06/26/25 09:13 Urine Blood (Auto) 0 Rex/uL 06/26/25 09:13 Urine Nitrite (Auto) Negative 06/26/25 09:13 Urine Bilirubin (Auto) 0 mg/dL 06/26/25 09:13 Urine Urobilinogen (Auto) 0.2 mg/dL 06/26/25 09:13 Leukocyte Esterase (Auto) 0 Javier/uL 06/26/25 09:13 Assessment & Plan Assessment & Plan (1) Malignant neoplasm of urinary bladder: Onset Date: ~2018 Comment: Low-grade Superficial bladder cancer initial diagnosis 2018 Code(s): C67.9 - Malignant neoplasm of bladder, unspecified Category: Medical (2) Bladder outlet obstruction: Code(s): N32.0 - Bladder-neck obstruction Category: Medical Plan We discussed the nature of the decision and reasonable options for performing a prostate intervention. Interventions include TURP, GreenLight laser enucleation of the prostate, GreenLight laser ablation of the prostate, transurethral incision of the prostate, and I-Tend prostate procedure. Options such as medical therapy were discussed. The relative uncertainties and benefits related to each alternate procedure were adequately discussed. General surgical risks including, but not limited to, pain, bleeding, infection, myocardial infarction, pulmonary embolus, deep vein thrombosis and cerebrovascular accident which may result in further hospitalization were discussed. Full disclosure of the procedure as well as all major risks, benefits and complications were discussed including but not limited to damage to the urethra or bladder neck, recurrent BPH, retrograde ejaculation, bladder infection, urge, de ankush frequency, incomplete emptying, dysuria, remote chance of erectile dysfunction, epididymitis, and meatal stenosis. The success rate of the procedure was discussed. Success of the procedure in the short-term does not necessarily guarantee that long-term success will be maintained. Suitable follow up will need to be maintained. The patient showed understanding of discussion. An opportunity was provided for questions to be answered and wishes to proceed with the following procedure. - plasma button incision Orders: Orders AMB Urinalysis Automated Today Z13.9 - Encounter for screening, unspecified Urine Cytology Today C67.9 - Malignant neoplasm of bladder, unspecified AMB Cystoscopy Today N32.0 - Bladder-neck obstruction, N40.0 - Benign prostatic hyperplasia without lower urinary tract symptoms Patient Instructions: This note is constructed using voice recognition software. While every effort has been made to ensure accuracy email marketing executive errors may have been included. Imaging studies, laboratory and physical exam results were discussed and reviewed in detail. No major barriers to patient understanding were identified. An opportunity to ask questions regarding the treatment plan was provided. All questions were answered. The patient expressed understanding and agreement with the above treatment plan. The patient is aware they should contact our office by phone for worsening of their current condition or the appearance of new urologic symptoms. Compliance is encouraged with any medications and followup testing that is ordered. It is a privilege to participate in the urologic care of your patient. If you have any questions or concerns regarding treatment for the above conditions, or other urologic issues, please do not hesitate to contact me. The office telephone contact is [phone]. Sincerely, Dr Nathan Borja MD, [facility] - Urology Compassionate Specialist Care for the Genitourinary System Coding Level of Care Code Est Pt Level 4 (06718) Add On Problem Visit Only Diagnoses Malignant neoplasm of urinary bladder C67.9 Bladder outlet obstruction N32.0 CPT Codes Cystoscopy - CPT: 20314-[id number] ([id number])
== END 2025-06-26 10:20 | disposition home or self-care (01) ==
LOC: HO.HUSH 08:58
PROVIDERS: PCP Internal Medicine; Visit Provider Urology
DX: N32.0 Bladder-neck obstruction (principal); N40.0 Benign prostatic hyperplasia without lower urinary tract symptoms; C67.9 Malignant neoplasm of bladder, unspecified; Z13.9 Encounter for screening, unspecified
CPT/HCPCS: 52000; 99214

== ENCOUNTER 2025-06-29 13:07 | Outpatient (REF) | payer OTHER, SELFPAY ==
[2025-06-29 16:21] LABS: Appearance Urine Clear; Glucose Urine UA 250 mg/dL (Negative); PH 6.0 (5.0-9.0); Specific Gravity - Urine 1.020 (1.005-1.025); UMIC TRIGGER UA YES
--- OUTSIDE RECORDS SUMMARY | 2025-06-29 16:27 | XMS_ITS | Clinical Summary ---
Author Organization [facility] Address [address] [phone] Phone Care Team Providers Care Health Care Coordinator Name Role Phone Jeff Guevara MD Primary [...] PPO AETNA PPO AETNA PPO Care Teams Health Care Coordinator Relationship Specialty Start Date End Date Jeff Guevara MD [address] [place] [id number] PCP - General Internal Medicine 02/03/25 Additional Source Comments The information contained in this document represents components of the legal health record. It is not the complete legal health record.[facility]
== END 2025-06-29 13:08 | disposition home or self-care (01) ==
LOC: HO.HMGCLDS 13:07
PROVIDERS: PCP Internal Medicine; Visit Provider Urology
DX: R39.9 Unspecified symptoms and signs involving the genitourinary system (principal)
CPT/HCPCS: 81001; 87086